=== PATIENT | female | born 1935 | race Caucasian/White ===

== ENCOUNTER → 2016-09-09 | Outpatient (CLI) | payer OTHER ==
[~2016-09-09] MED LIST: AML5T PO; ASPI-498 OR; ASPITAB34 OR; ATOR40TA52 PO; CALC600T4 PO; CHOL10006 OR; CHOL20007 OR; ENAL-3 PO; ENAL20TA70 PO; FOLI1TAB51 PO; HYDR25TA4 PO; METH2.5T3 OR; OMEG120017 PO; POTA-167 OR; PRED5PAK2 PO; [UNRECOGNIZED DRUG - CODE] PO
[2016-09-09 11:31] LABS: Basophils # (auto) 0 uL; Basophils % (auto) 0.7 % (0.0-2.0); Eosinophils # (auto) 0.2 uL; Eosinophils % (auto) 3.3 % (0.0-7.0); Hematocrit 44.3 % (36.0-46.0); Hemoglobin 14.4 g/dL (12.2-16.2); Lymphocytes # (auto) 1.7 uL; Lymphocytes % (auto) 28.1 % (10.0-50.0); Mean Corpuscular Hemoglobin 32.4 pg (28.0-32.0); Mean Corpuscular Hgb Conc. 32.5 g/dL (32.0-36.0); Mean Corpuscular Volume 99.8 fL (80.0-100.0); Mean Platelet Volume 9.3 fL (7.4-10.4); Monocytes # (auto) 0.3 uL; Monocytes % (auto) 5.8 % (0.0-12.0); Neutrophils # (auto) 3.7 uL; Neutrophils % (auto) 62.1 % (37.0-80.0); Platelet Count (auto) 304 10^3/uL (140-450); Red Cell Distribution Width 15.1 % (11.6-16.0); White Blood Cell 5.9 10^3/uL (4.4-10.8)
[2016-09-09 11:44] LABS: Albumin 3.9 g/dL (3.4-5.0); BUN/Creatinine Ratio 22.3; Calcium 9.9 mg/dL (8.5-10.1); Potassium 3.4 mmol/L (3.5-5.1); Total Protein 7.7 g/dL (6.4-8.2); Uric Acid 6.2 mg/dL (2.6-6.0)
== END | disposition home or self-care (01) ==
LOC: LAB 10:30
PROVIDERS: ATTEND Internal Medicine
DX: M06.9 Rheumatoid arthritis, unspecified (principal); I10 Essential (primary) hypertension; J12.9 Viral pneumonia, unspecified
CPT/HCPCS: 36415; 80053; 80061; 83970; 84550; 85025; 85652; 86141

== ENCOUNTER → 2016-10-08 | Outpatient (CLI) | payer OTHER | END | disposition home or self-care (01) | LOC: Rad HDHVI 09:27 | PROVIDERS: ATTEND Internal Medicine Cardiovascular Disease | DX: C18.9 Malignant neoplasm of colon, unspecified (principal); I70.212 Atherosclerosis of native arteries of extremities with intermittent claudication, left leg; I74.3 Embolism and thrombosis of arteries of the lower extremities; Z98.890 Other specified postprocedural states; I65.29 Occlusion and stenosis of unspecified carotid artery | CPT/HCPCS: 93926 ==

== ENCOUNTER → 2016-11-10 | Outpatient (CLI) | payer OTHER ==
[2016-11-10 13:27] LABS: Basophils # (auto) 0 uL; Eosinophils # (auto) 0 uL; Eosinophils % (auto) 0.4 % (0.0-7.0); Hematocrit 40.4 % (36.0-46.0); Hemoglobin 13.6 g/dL (12.2-16.2); Lymphocytes # (auto) 0.7 uL; Lymphocytes % (auto) 6.6 % (10.0-50.0); Mean Corpuscular Hemoglobin 33.5 pg (28.0-32.0); Mean Corpuscular Hgb Conc. 33.7 g/dL (32.0-36.0); Mean Corpuscular Volume 99.3 fL (80.0-100.0); Mean Platelet Volume 7.9 fL (7.4-10.4); Monocytes # (auto) 0.4 uL; Monocytes % (auto) 3.6 % (0.0-12.0); Neutrophils # (auto) 9.6 uL; Neutrophils % (auto) 89.4 % (37.0-80.0); Platelet Count (auto) 367 10^3/uL (140-450); White Blood Cell 10.8 10^3/uL (4.4-10.8)
[2016-11-10 13:50] LABS: Albumin 3.6 g/dL (3.4-5.0); BUN/Creatinine Ratio 21.3; Bilirubin, Total 0.7 mg/dL (0.2-1.0); Calcium 10.1 mg/dL (8.5-10.1); Total Protein 6.9 g/dL (6.4-8.2)
== END | disposition home or self-care (01) ==
LOC: LAB 13:03
DX: M06.9 Rheumatoid arthritis, unspecified (principal); I10 Essential (primary) hypertension; M25.859 Other specified joint disorders, unspecified hip; D64.9 Anemia, unspecified; Z79.899 Other long term (current) drug therapy
CPT/HCPCS: 36415; 80053; 85025; 85652; 86141

== ENCOUNTER → 2017-09-21 | Outpatient (CLI) | payer OTHER ==
[~2017-09-21] MED LIST changes: +ASPI81TA27 PO; +CHOL1000 PO; +CLON0.1T PO; +CLOP75TA28 PO; +FOLI1CAP7 PO; +GABA100C9 PO; +METH2.5T3 PO; +POTA20TA53 PO; +PRE5T PO
[2017-09-22 09:46] LABS: Basophils # (auto) 0 uL; Basophils % (auto) 0.6 % (0.0-2.0); Eosinophils # (auto) 0.1 uL; Eosinophils % (auto) 1.4 % (0.0-7.0); Hematocrit 42.5 % (36.0-46.0); Hemoglobin 14.3 g/dL (12.2-16.2); Lymphocytes # (auto) 1.5 uL; Lymphocytes % (auto) 30.5 % (10.0-50.0); Mean Corpuscular Hemoglobin 33.5 pg (28.0-32.0); Mean Corpuscular Hgb Conc. 33.6 g/dL (32.0-36.0); Mean Corpuscular Volume 99.6 fL (80.0-100.0); Monocytes # (auto) 0.3 uL; Neutrophils # (auto) 2.9 uL; Neutrophils % (auto) 60.5 % (37.0-80.0); Platelet Count (auto) 315 10^3/uL (140-450); Red Blood Cells 4.26 10^6/uL (4.0-5.20); Red Cell Distribution Width 14.7 % (11.8-14.3); White Blood Cell 4.8 10^3/uL (4.4-10.8)
[2017-09-22 10:13] LABS: Albumin 3.8 g/dL (3.4-5.0); BUN/Creatinine Ratio 18.4; Bilirubin, Total 1.3 mg/dL (0.2-1.0); Calcium 9.7 mg/dL (8.5-10.1); Potassium 3.3 mmol/L (3.5-5.1); Total Protein 7.4 g/dL (6.4-8.2); Uric Acid 5.7 mg/dL (2.6-6.0)
== END | disposition home or self-care (01) ==
LOC: LAB 11:52
PROVIDERS: ATTEND Internal Medicine
DX: J44.9 Chronic obstructive pulmonary disease, unspecified (principal); I73.9 Peripheral vascular disease, unspecified; I10 Essential (primary) hypertension
CPT/HCPCS: 36415; 80053; 80061; 82043; 83880; 83970; 84439; 84443; 84550; 85025; 85379; 85652

== ENCOUNTER 2017-09-24 08:36 | Day surgery (SDC) | payer OTHER ==
[~2017-09-24] VITALS: Ht 162.6 cm; Wt 59.0 kg
[~2017-09-24 08:36] MED LIST changes: -AML5T PO; -ASPI-498 OR; -CHOL10006 OR; -CHOL20007 OR; -CLON0.1T PO; -ENAL-3 PO; -FOLI1TAB51 PO; -GABA100C9 PO; -METH2.5T3 OR; -OMEG120017 PO; -POTA-167 OR; -PRED5PAK2 PO; -[UNRECOGNIZED DRUG - CODE] PO
[2017-09-24] MEDS ORDERED: IOHEXOL 350 MG/ML 100ML IJ ONE (09:50)
[2017-09-24] MEDS ORDERED: LIDOCAINE 2%HCL (LOCAL ANESTH.) INJ 20ML MDV ONE (09:50)
[2017-09-24] MEDS ORDERED: ANGIOMAX 250 MG VIAL IV ONE (09:58)
[2017-09-24] MEDS ORDERED: fentaNYL CITRATE 100 MCG/2 ML VL ONE (09:58)
[2017-09-24] MEDS ORDERED: MIDAZOLAM HCL 1MG/1ML-2 ML VIAL ONE (09:59)
[2017-09-24] MEDS ORDERED: SODIUM CHL 0.9% 0 ML ONE (09:59)
[2017-09-24] MEDS ORDERED: NITROGLYCERIN 0.4MG/DOSE SPRAY 4.9GM ONE (10:13)
[2017-09-24] MEDS ORDERED: cloNIDine HCL 0.1 MG TAB ONE (10:13)
[2017-09-24] MEDS ORDERED: cloNIDine 0.2 mg/24hr 7DAY PATCH TD ONE (11:00)
[2017-11-03] MEDS ORDERED: CLON0.1T PO (12:05)
[2017-11-03] MEDS ORDERED: GABA100C9 PO (12:05)
[2017-11-03] MEDS ORDERED: OMEG120017 PO (12:05)
== END 2017-09-24 12:45 | disposition home or self-care (01) ==
LOC: CATH 08:36
PROVIDERS: ATTEND Internal Medicine Cardiovascular Disease
DX: I25.10 Atherosclerotic heart disease of native coronary artery without angina pectoris (principal); J44.9 Chronic obstructive pulmonary disease, unspecified; I73.9 Peripheral vascular disease, unspecified; Z87.891 Personal history of nicotine dependence; I10 Essential (primary) hypertension; E78.5 Hyperlipidemia, unspecified
CPT/HCPCS: 36246; 36252; 75716; C1760; C1769; C1894; J1644; J2250; J3010; J7030; Q9967; 99152

== ENCOUNTER → 2017-11-03 | Outpatient (CLI) | payer OTHER ==
[~2017-11-03] MED LIST changes: +CLON0.1T PO; +GABA100C9 PO; +OMEG120017 PO
[2017-11-03 10:41] LABS: Basophils # (auto) 0 uL; Basophils % (auto) 0.3 % (0.0-2.0); Eosinophils # (auto) 0.1 uL; Eosinophils % (auto) 0.7 % (0.0-7.0); Hematocrit 41.2 % (36.0-46.0); Hemoglobin 13.9 g/dL (12.2-16.2); Lymphocytes # (auto) 1.6 uL; Lymphocytes % (auto) 17.4 % (10.0-50.0); Mean Corpuscular Hemoglobin 33.8 pg (28.0-32.0); Mean Corpuscular Hgb Conc. 33.6 g/dL (32.0-36.0); Mean Corpuscular Volume 100.5 fL (80.0-100.0); Monocytes # (auto) 0.5 uL; Monocytes % (auto) 5.8 % (0.0-12.0); Neutrophils # (auto) 6.7 uL; Neutrophils % (auto) 75.8 % (37.0-80.0); Nucleated Red Blood Cells % 0.1 %; Platelet Count (auto) 297 10^3/uL (140-450); Red Cell Distribution Width 14.5 % (11.8-14.3); White Blood Cell 8.9 10^3/uL (4.4-10.8)
[2017-11-03 11:01] LABS: INR 0.94 (0.9-1.15); Partial Thromboplastin Time 23.9 sec (22.64-33.71); Prothrombin Time 10.2 sec (9.37-12.3)
[2017-11-03 11:17] LABS: Albumin 3.7 g/dL (3.4-5.0); BUN/Creatinine Ratio 21.1; Bilirubin, Total 1.3 mg/dL (0.2-1.0); CRP High Sensitivity 1.92 mg/dL (< 0.3); Calcium 9.7 mg/dL (8.5-10.1); Potassium 3.6 mmol/L (3.5-5.1); Total Protein 7.5 g/dL (6.4-8.2)
== END | disposition home or self-care (01) ==
LOC: LAB 10:15
PROVIDERS: ATTEND Internal Medicine
DX: Z01.812 Encounter for preprocedural laboratory examination (principal); M06.9 Rheumatoid arthritis, unspecified; R79.89 Other specified abnormal findings of blood chemistry
CPT/HCPCS: 36415; 80053; 85025; 85610; 85730; 86141

== ENCOUNTER 2017-11-05 07:40 | Inpatient (IN) | payer OTHER ==
[2017-09-24 09:24] LABS: INR 0.92 (0.9-1.15)
[~2017-11-05] VITALS: Ht 162.6 cm; Wt 62.2 kg
[2017-11-05] MEDS ORDERED: LIDOCAINE 2%HCL (LOCAL ANESTH.) INJ 20ML MDV ONE (08:17)
[2017-11-05] MEDS ORDERED: IOHEXOL 350 MG/ML 100ML IJ ONE (08:17)
[2017-11-05] MEDS ORDERED: fentaNYL CITRATE 100 MCG/2 ML VL ONE (09:06)
[2017-11-05] MEDS ORDERED: ANGIOMAX 250 MG VIAL IV ONE (09:06)
[2017-11-05] MEDS ORDERED: MIDAZOLAM HCL 1MG/1ML-2 ML VIAL ONE (09:07)
[2017-11-05] MEDS ORDERED: SODIUM CHL 0.9% 50 ML ONE (09:07)
[2017-11-05] MEDS ORDERED: CLOPIDOGREL 300 MG TAB ONE (10:15)
[2017-11-05] MEDS ORDERED: METHOTREXATE 2.5 MG TAB PO SCH (10:30)
[2017-11-05] MEDS ORDERED: cloNIDine HCL 0.1 MG TAB PO SCH (10:30)
[2017-11-05] MEDS ORDERED: ENALAPRIL MALEATE 10 MG TAB PO ONE (11:00)
[2017-11-05] MEDS ORDERED: FOLIC ACID 1 MG TAB PO ONE (11:00)
[2017-11-05] MEDS ORDERED: HCTZ 25 MG TAB PO ONE (11:00)
[2017-11-05] MEDS ORDERED: CLOPIDOGREL BISULFATE 75 MG TAB PO ONE (11:00)
[2017-11-05] MEDS ORDERED: CHOLECALCIFEROL (VITD3) 1,000 UNIT TAB PO ONE (11:00)
[2017-11-05] MEDS ORDERED: GABAPENTIN 100 MG CAP PO ONE (11:00)
[2017-11-05] MEDS ORDERED: POTASSIUM CHL 20 Meq TABLET PO ONE (11:00)
[2017-11-05 15:20] VITALS: BP 125/59
[2017-11-05 21:52] VITALS: BP 120/58
[2017-11-05] MEDS ORDERED: ATORVASTATIN 20 MG TAB PO SCH (22:00)
[2017-11-06 05:24] VITALS: BP 142/69
[2017-11-06 09:00] VITALS: BP 138/78
[2017-11-06] MEDS ORDERED: POTASSIUM CHL 20 Meq TABLET PO SCH (10:00)
[2017-11-06] MEDS ORDERED: GABAPENTIN 100 MG CAP PO SCH (10:00)
[2017-11-06] MEDS ORDERED: CLOPIDOGREL BISULFATE 75 MG TAB PO SCH (10:00)
[2017-11-06] MEDS ORDERED: ENALAPRIL MALEATE 10 MG TAB PO SCH (10:00)
[2017-11-06] MEDS ORDERED: CHOLECALCIFEROL (VITD3) 1,000 UNIT TAB PO SCH (10:00)
[2017-11-06] MEDS ORDERED: ASPirin-EC 81 mg tab PO SCH (10:00)
[2017-11-06] MEDS ORDERED: predniSONE 5 MG TAB PO SCH (10:00)
[2017-11-06] MEDS ORDERED: HCTZ 25 MG TAB PO SCH (10:00)
[2017-11-06] MEDS ORDERED: FOLIC ACID 1 MG TAB PO SCH (10:00)
== END 2017-11-06 12:30 | disposition home or self-care (01) | DRG 253 ==
LOC: CATH 07:40 → EAST 07:41
PROVIDERS: ADMIT Internal Medicine Cardiovascular Disease; ATTEND Internal Medicine Cardiovascular Disease
PROC: 047K3Z1 Dilation of Right Femoral Artery using Drug-Coated Balloon, Percutaneous Approach (ICD-10-PCS; principal; 2017-11-05)
DX: I70.201 Unspecified atherosclerosis of native arteries of extremities, right leg (principal); D68.69 Other thrombophilia; E78.5 Hyperlipidemia, unspecified; I10 Essential (primary) hypertension; Z98.62 Peripheral vascular angioplasty status; Z82.49 Family history of ischemic heart disease and other diseases of the circulatory system
CPT/HCPCS: 36415; 85610; 99152; J2250

== ENCOUNTER → 2018-01-29 | Outpatient (CLI) | payer OTHER ==
[2018-01-29 11:16] LABS: Basophils # (auto) 0.1 uL; Basophils % (auto) 1.2 % (0.0-2.0); Eosinophils # (auto) 0.2 uL; Eosinophils % (auto) 3.2 % (0.0-7.0); Hematocrit 38.9 % (36.0-46.0); Hemoglobin 13.2 g/dL (12.2-16.2); Lymphocytes # (auto) 0.9 uL; Lymphocytes % (auto) 11.8 % (10.0-50.0); Mean Corpuscular Hemoglobin 32.9 pg (28.0-32.0); Mean Corpuscular Hgb Conc. 33.8 g/dL (32.0-36.0); Mean Corpuscular Volume 97.4 fL (80.0-100.0); Monocytes # (auto) 0.8 uL; Monocytes % (auto) 10.8 % (0.0-12.0); Neutrophils # (auto) 5.4 uL; Nucleated Red Blood Cells % 0.1 %; Platelet Count (auto) 304 10^3/uL (140-450); Red Blood Cells 3.99 10^6/uL (4.0-5.20); Red Cell Distribution Width 14.3 % (11.8-14.3); White Blood Cell 7.5 10^3/uL (4.4-10.8)
[2018-01-29 11:33] LABS: Albumin 3.4 g/dL (3.4-5.0); Bilirubin, Total 0.7 mg/dL (0.2-1.0); Calcium 9.6 mg/dL (8.5-10.1); Potassium 3.7 mmol/L (3.5-5.1)
== END | disposition home or self-care (01) ==
LOC: LAB 10:47
PROVIDERS: ATTEND Internal Medicine
DX: I10 Essential (primary) hypertension (principal); M06.9 Rheumatoid arthritis, unspecified; E78.5 Hyperlipidemia, unspecified; J44.9 Chronic obstructive pulmonary disease, unspecified; Z87.891 Personal history of nicotine dependence
CPT/HCPCS: 36415; 80053; 85025; 85652

== ENCOUNTER → 2018-04-23 | Outpatient (CLI) | payer OTHER ==
[2018-04-23 14:44] LABS: Basophils # (auto) 0 uL; Basophils % (auto) 0.5 % (0.0-2.0); Eosinophils # (auto) 0.1 uL; Eosinophils % (auto) 1.6 % (0.0-7.0); Hematocrit 39.8 % (36.0-46.0); Hemoglobin 13.7 g/dL (12.2-16.2); Lymphocytes # (auto) 1.2 uL; Mean Corpuscular Hemoglobin 33.8 pg (28.0-32.0); Mean Corpuscular Hgb Conc. 34.5 g/dL (32.0-36.0); Mean Corpuscular Volume 97.7 fL (80.0-100.0); Monocytes # (auto) 0.5 uL; Monocytes % (auto) 6.5 % (0.0-12.0); Neutrophils # (auto) 6.2 uL; Neutrophils % (auto) 76.4 % (37.0-80.0); Platelet Count (auto) 315 10^3/uL (140-450); Red Blood Cells 4.07 10^6/uL (4.0-5.20); Red Cell Distribution Width 15.6 % (11.8-14.3); White Blood Cell 8.2 10^3/uL (4.4-10.8)
[2018-04-23 15:35] LABS: Albumin 3.7 g/dL (3.4-5.0); BUN/Creatinine Ratio 16.3; Bilirubin, Total 0.7 mg/dL (0.2-1.0); CRP High Sensitivity 0.28 mg/dL (< 0.3); Calcium 9.4 mg/dL (8.5-10.1); Potassium 3.6 mmol/L (3.5-5.1); Total Protein 7.1 g/dL (6.4-8.2)
[2018-04-23 18:42] LABS: Carcinoembryonic Antigen 0.62 ng/mL (<5.0 OR =); Free T4 (Free Thyroxine) 1.37 ng/dL (0.89-1.76)
== END | disposition home or self-care (01) ==
LOC: LAB 14:21
PROVIDERS: ATTEND Internal Medicine
DX: I10 Essential (primary) hypertension (principal); M06.9 Rheumatoid arthritis, unspecified; R53.83 Other fatigue
CPT/HCPCS: 36415; 80053; 82378; 82607; 84439; 84443; 85025; 86141

== ENCOUNTER 2018-06-25 09:40 | Day surgery (SDC) | payer OTHER ==
[2018-06-22 11:45] LABS: Basophils # (auto) 0 uL; Basophils % (auto) 0.5 % (0.0-2.0); Eosinophils # (auto) 0.1 uL; Eosinophils % (auto) 1.3 % (0.0-7.0); Hematocrit 39.8 % (36.0-46.0); Hemoglobin 13.7 g/dL (12.2-16.2); Lymphocytes # (auto) 1.3 uL; Mean Corpuscular Hemoglobin 33.2 pg (28.0-32.0); Mean Corpuscular Hgb Conc. 34.3 g/dL (32.0-36.0); Mean Corpuscular Volume 96.7 fL (80.0-100.0); Monocytes # (auto) 0.6 uL; Monocytes % (auto) 8.6 % (0.0-12.0); Neutrophils # (auto) 4.9 uL; Neutrophils % (auto) 70.6 % (37.0-80.0); Platelet Count (auto) 329 10^3/uL (140-450); Red Blood Cells 4.11 10^6/uL (4.0-5.20); Red Cell Distribution Width 13.9 % (11.8-14.3)
[2018-06-22 12:32] LABS: INR 0.93 (0.9-1.15); Partial Thromboplastin Time 26.3 sec (23.78-33.04)
[~2018-06-25] VITALS: Ht 162.6 cm; Wt 53.1 kg
[~2018-06-25 09:40] MED LIST changes: -ASPITAB34 OR; +LIDOCAINE VISCOUS 2% 15ML UD ONE; +PEN400T PO; +SODIUM CHLORIDE LOCK 10 ML ONE
[2018-06-25] MEDS: fentaNYL CITRATE 100 MCG/2 ML VL ONE ×3 (10:59→11:14)
[2018-06-25] MEDS: MIDAZOLAM HCL 5 MG/ML-1ML VIAL ONE ×4 (10:59→11:20)
[2018-06-25] MEDS ORDERED: LABETALOL HCL 5 MG/ML 4ML SYRINGE IV ONE (11:28)
[2018-06-25 12:21] VITALS: BP 145/58
[2018-06-25] MEDS ORDERED: diphenhdrAMINE HCL 50 MG/1 ML VL IV ONE (15:30)
== END 2018-06-25 12:52 | disposition home or self-care (01) ==
LOC: SUR 09:40
PROVIDERS: ATTEND Internal Medicine Gastroenterology
DX: K63.89 Other specified diseases of intestine (principal); K29.50 Unspecified chronic gastritis without bleeding; K25.9 Gastric ulcer, unspecified as acute or chronic, without hemorrhage or perforation; J44.9 Chronic obstructive pulmonary disease, unspecified; I12.9 Hypertensive chronic kidney disease with stage 1 through stage 4 chronic kidney disease, or unspecified chronic kidney disease; N18.3 Chronic kidney disease, stage 3 (moderate); E78.5 Hyperlipidemia, unspecified; M06.9 Rheumatoid arthritis, unspecified; M19.90 Unspecified osteoarthritis, unspecified site; Z85.038 Personal history of other malignant neoplasm of large intestine; Z90.710 Acquired absence of both cervix and uterus; Z87.891 Personal history of nicotine dependence; Z80.0 Family history of malignant neoplasm of digestive organs; Z80.3 Family history of malignant neoplasm of breast; Z80.8 Family history of malignant neoplasm of other organs or systems; Z82.49 Family history of ischemic heart disease and other diseases of the circulatory system; Z79.899 Other long term (current) drug therapy; Z90.49 Acquired absence of other specified parts of digestive tract; Z98.890 Other specified postprocedural states; Z79.1 Long term (current) use of non-steroidal anti-inflammatories (NSAID); Z98.62 Peripheral vascular angioplasty status; Z79.82 Long term (current) use of aspirin
CPT/HCPCS: 36415; 43239; 45380; 85025; 85610; 85730; 88305; 88342; 99152; 99153; A6257; J1200; J2250; J3010; J3490; J7030

== ENCOUNTER → 2018-07-08 | Outpatient (CLI) | payer OTHER, MEDICARE ==
[~2018-07-08] MED LIST changes: -LIDOCAINE VISCOUS 2% 15ML UD ONE; -SODIUM CHLORIDE LOCK 10 ML ONE
[2018-07-08 14:02] LABS: Basophils # (auto) 0 uL; Basophils % (auto) 0.6 % (0.0-2.0); Eosinophils # (auto) 0.1 uL; Eosinophils % (auto) 1.2 % (0.0-7.0); Hematocrit 41.5 % (36.0-46.0); Hemoglobin 13.7 g/dL (12.2-16.2); Lymphocytes # (auto) 1.5 uL; Lymphocytes % (auto) 20.2 % (10.0-50.0); Mean Corpuscular Hemoglobin 32.2 pg (28.0-32.0); Mean Corpuscular Hgb Conc. 33.1 g/dL (32.0-36.0); Mean Corpuscular Volume 97.4 fL (80.0-100.0); Monocytes # (auto) 0.4 uL; Monocytes % (auto) 5.7 % (0.0-12.0); Neutrophils # (auto) 5.2 uL; Neutrophils % (auto) 72.3 % (37.0-80.0); Nucleated Red Blood Cells % 0.1 %; Platelet Count (auto) 343 10^3/uL (140-450); Red Blood Cells 4.26 10^6/uL (4.0-5.20); Red Cell Distribution Width 14.3 % (11.8-14.3); White Blood Cell 7.2 10^3/uL (4.4-10.8)
[2018-07-08 14:26] LABS: Albumin 3.7 g/dL (3.4-5.0); BUN/Creatinine Ratio 13.8; Bilirubin, Total 0.6 mg/dL (0.2-1.0); CRP High Sensitivity 0.84 mg/dL (< 0.3); Potassium 3.4 mmol/L (3.5-5.1); Total Protein 7.6 g/dL (6.4-8.2)
[2018-07-08 14:33] LABS: Hepatitis B Surface Antibody Negative
[2018-07-08 14:40] LABS: Urine Bacteria FEW /hpf (None Seen); Urine Blood Negative /uL (Negative); Urine Specific Gravity 1.018 (1.001-1.035); Urine WBC 144 /hpf (0 - 5)
[2018-07-08 15:00] LABS: Protein, Urine 14.4 mg/dL (0.0-11.9)
[2018-07-08 15:11] LABS: Hepatitis A Total Antibody Negative
[2018-07-08 15:58] LABS: Hepatitis B Core Total AB Negative; Hepatitis B Surface Antigen Negative (Negative); Hepatitis C Antibody Negative (Negative)
== END | disposition home or self-care (01) ==
LOC: LAB 13:06
PROVIDERS: ATTEND Internal Medicine
DX: Z11.59 Encounter for screening for other viral diseases (principal); I10 Essential (primary) hypertension; D64.9 Anemia, unspecified; M06.9 Rheumatoid arthritis, unspecified; A15.0 Tuberculosis of lung; Z72.89 Other problems related to lifestyle; Z79.899 Other long term (current) drug therapy
CPT/HCPCS: 36415; 80053; 81001; 82570; 84156; 85025; 85652; 86141; 86200; 86431; 86704; 86706; 86708; 86803; 87340

== ENCOUNTER → 2018-08-05 | Outpatient (CLI) | payer OTHER, MEDICARE | END | disposition home or self-care (01) | LOC: LAB 14:45 | PROVIDERS: ATTEND Internal Medicine | DX: M05.79 Rheumatoid arthritis with rheumatoid factor of multiple sites without organ or systems involvement (principal); R82.79 Other abnormal findings on microbiological examination of urine | CPT/HCPCS: 87086; 87088; 87186 ==

== ENCOUNTER → 2018-11-26 | Outpatient (CLI) | payer OTHER, MEDICARE ==
[2018-11-26 10:32] LABS: Basophils # (auto) 0 uL; Basophils % (auto) 0.7 % (0.0-2.0); Eosinophils # (auto) 0.2 uL; Eosinophils % (auto) 3.4 % (0.0-7.0); Hematocrit 39.4 % (36.0-46.0); Hemoglobin 13.4 g/dL (12.2-16.2); Lymphocytes # (auto) 1.2 uL; Lymphocytes % (auto) 24.1 % (10.0-50.0); Mean Corpuscular Hemoglobin 33.6 pg (28.0-32.0); Mean Corpuscular Hgb Conc. 33.9 g/dL (32.0-36.0); Mean Corpuscular Volume 99.2 fL (80.0-100.0); Monocytes # (auto) 0.5 uL; Monocytes % (auto) 9.7 % (0.0-12.0); Neutrophils % (auto) 62.1 % (37.0-80.0); Platelet Count (auto) 263 10^3/uL (140-450); Red Blood Cells 3.97 10^6/uL (4.0-5.20); Red Cell Distribution Width 15.8 % (11.8-14.3); White Blood Cell 4.8 10^3/uL (4.4-10.8)
[2018-11-26 11:29] LABS: Alanine Aminotransferase 20 U/L (13-56); Aspartate Aminotransferase 28 U/L (15-37); GFR African American 77 mL/min; GFR Non-African American 64 mL/min; Total Protein 7.5 g/dL (6.4-8.2)
[2018-11-26 11:34] LABS: Alkaline Phosphatase 67 U/L (45-117); Anion Gap 6 (5-15); Blood Urea Nitrogen 18 mg/dL (7-18); Carbon Dioxide 28 mmol/L (21-32); Chloride 103 mmol/L (98-107); Glucose 88 mg/dL (74-106); Sodium 137 mmol/L (136-145)
[2018-11-26 11:35] LABS: Albumin 3.4 g/dL (3.4-5.0); Bilirubin, Total 0.7 mg/dL (0.2-1.0); Cholesterol 177 mg/dL (< 200); HDL Cholesterol 63 mg/dL (40-59); LDL Cholesterol 99 mg/dL (< 100); Triglycerides 115 mg/dL (< 150)
[2018-11-26 13:21] LABS: Urine Bacteria NONE SEEN /hpf (None Seen); Urine Blood Negative /uL (Negative); Urine Specific Gravity 1.019 (1.001-1.035); Urine WBC 4 /hpf (0 - 5)
== END | disposition home or self-care (01) ==
LOC: LAB 10:11
PROVIDERS: ATTEND Internal Medicine
DX: M06.9 Rheumatoid arthritis, unspecified (principal); I10 Essential (primary) hypertension
CPT/HCPCS: 36415; 80053; 80061; 81001; 82043; 84439; 84443; 85025; 85652

== ENCOUNTER → 2019-02-22 | Outpatient (CLI) | payer MEDICARE, OTHER | END | disposition home or self-care (01) | LOC: XY 08:49 | PROVIDERS: ATTEND Internal Medicine Gastroenterology | DX: R63.4 Abnormal weight loss (principal) | CPT/HCPCS: 78264; A9541 ==

== ENCOUNTER → 2019-03-09 | Outpatient (CLI) | payer OTHER ==
[2019-03-09 10:33] LABS: Basophils # (auto) 0.1 uL; Basophils % (auto) 0.9 % (0.0-2.0); Eosinophils # (auto) 0.1 uL; Eosinophils % (auto) 1.8 % (0.0-7.0); Hematocrit 39.7 % (36.0-46.0); Hemoglobin 13.3 g/dL (12.2-16.2); Lymphocytes # (auto) 0.9 uL; Lymphocytes % (auto) 14.2 % (10.0-50.0); Mean Corpuscular Hemoglobin 32.9 pg (28.0-32.0); Mean Corpuscular Hgb Conc. 33.5 g/dL (32.0-36.0); Mean Corpuscular Volume 98.1 fL (80.0-100.0); Monocytes # (auto) 0.5 uL; Monocytes % (auto) 8.1 % (0.0-12.0); Neutrophils # (auto) 4.8 uL; Nucleated Red Blood Cells % 0.1 %; Platelet Count (auto) 310 10^3/uL (140-450); Red Blood Cells 4.04 10^6/uL (4.0-5.20); Red Cell Distribution Width 15.6 % (11.8-14.3); White Blood Cell 6.4 10^3/uL (4.4-10.8)
[2019-03-09 10:44] LABS: Albumin 3.7 g/dL (3.4-5.0); Calcium 10.3 mg/dL (8.5-10.1)
[2019-03-09 10:53] LABS: BUN/Creatinine Ratio 24.4; Bilirubin, Total 0.8 mg/dL (0.2-1.0); CRP High Sensitivity 1.16 mg/dL (< 0.3); Total Protein 7.3 g/dL (6.4-8.2)
[2019-03-09 11:52] LABS: Potassium 3.8 mmol/L (3.5-5.1)
== END | disposition home or self-care (01) ==
LOC: LAB 10:09
PROVIDERS: ATTEND Internal Medicine
DX: M06.9 Rheumatoid arthritis, unspecified (principal); I10 Essential (primary) hypertension; J44.9 Chronic obstructive pulmonary disease, unspecified
CPT/HCPCS: 36415; 80053; 85025; 85652; 86141

== ENCOUNTER → 2019-05-25 | Outpatient (CLI) | payer OTHER, MEDICARE ==
[~2019-05-25] MED LIST changes: +ASPI-404 PO; -ASPI81TA27 PO; +ENAL20TA PO; -ENAL20TA70 PO; +POTA-220 PO; -POTA20TA53 PO
[2019-05-25 10:51] LABS: Basophils # (auto) 0.1 uL; Basophils % (auto) 0.7 % (0.0-2.0); Eosinophils # (auto) 0.1 uL; Eosinophils % (auto) 1.7 % (0.0-7.0); Hematocrit 38.8 % (36.0-46.0); Hemoglobin 13.3 g/dL (12.2-16.2); Lymphocytes % (auto) 12.9 % (10.0-50.0); Mean Corpuscular Hemoglobin 33.3 pg (28.0-32.0); Mean Corpuscular Hgb Conc. 34.3 g/dL (32.0-36.0); Mean Corpuscular Volume 97.2 fL (80.0-100.0); Monocytes # (auto) 0.6 uL; Monocytes % (auto) 7.6 % (0.0-12.0); Neutrophils # (auto) 5.8 uL; Neutrophils % (auto) 77.1 % (37.0-80.0); Platelet Count (auto) 331 10^3/uL (140-450); Red Blood Cells 3.99 10^6/uL (4.0-5.20); Red Cell Distribution Width 14.9 % (11.8-14.3); White Blood Cell 7.6 10^3/uL (4.4-10.8)
[2019-05-25 11:28] LABS: Potassium 4.2 mmol/L (3.5-5.1)
[2019-05-25 11:36] LABS: Albumin 3.6 g/dL (3.4-5.0); BUN/Creatinine Ratio 26.5; Bilirubin, Total 1.1 mg/dL (0.2-1.0); Calcium 9.9 mg/dL (8.5-10.1); Total Protein 7.6 g/dL (6.4-8.2)
== END | disposition home or self-care (01) ==
LOC: LAB 09:57
PROVIDERS: ATTEND Internal Medicine
DX: C18.9 Malignant neoplasm of colon, unspecified (principal); I10 Essential (primary) hypertension; J44.9 Chronic obstructive pulmonary disease, unspecified
CPT/HCPCS: 36415; 80053; 82378; 83615; 85025

== ENCOUNTER → 2019-08-09 | Outpatient (CLI) | payer OTHER, MEDICARE ==
[2019-08-09 08:42] LABS: Basophils # (auto) 0 uL; Basophils % (auto) 1.3 % (0.0-2.0); Eosinophils # (auto) 0.1 uL; Hematocrit 40.7 % (36.0-46.0); Hemoglobin 13.7 g/dL (12.2-16.2); Lymphocytes # (auto) 0.8 uL; Lymphocytes % (auto) 22.3 % (10.0-50.0); Mean Corpuscular Hemoglobin 32.9 pg (28.0-32.0); Mean Corpuscular Hgb Conc. 33.6 g/dL (32.0-36.0); Monocytes # (auto) 0.4 uL; Monocytes % (auto) 10.1 % (0.0-12.0); Neutrophils # (auto) 2.3 uL; Neutrophils % (auto) 63.3 % (37.0-80.0); Nucleated Red Blood Cells % 0.1 %; Platelet Count (auto) 310 10^3/uL (140-450); Red Blood Cells 4.15 10^6/uL (4.0-5.20); Red Cell Distribution Width 14.8 % (11.8-14.3); White Blood Cell 3.6 10^3/uL (4.4-10.8)
[2019-08-09 09:00] LABS: Potassium 3.5 mmol/L (3.5-5.1)
[2019-08-09 09:01] LABS: Albumin 3.6 g/dL (3.4-5.0); Calcium 9.5 mg/dL (8.5-10.1)
[2019-08-09 09:04] LABS: BUN/Creatinine Ratio 25.3; Bilirubin, Total 0.9 mg/dL (0.2-1.0); Total Protein 7.6 g/dL (6.4-8.2)
== END | disposition home or self-care (01) ==
LOC: LAB 08:08
PROVIDERS: ATTEND Internal Medicine
DX: C18.9 Malignant neoplasm of colon, unspecified (principal)
CPT/HCPCS: 36415; 80053; 82378; 85025

== ENCOUNTER 2019-08-10 09:28 | Emergency (ER) | payer MEDICARE, OTHER ==
[~2019-08-10] VITALS: Ht 162.6 cm; Wt 46.7 kg
[2019-08-10 10:16] LABS: Basophils # (auto) 0 uL; Basophils % (auto) 0.8 % (0.0-2.0); Eosinophils # (auto) 0.1 uL; Eosinophils % (auto) 1.6 % (0.0-7.0); Lymphocytes # (auto) 1.1 uL; Lymphocytes % (auto) 24.1 % (10.0-50.0); Mean Corpuscular Hemoglobin 33.2 pg (28.0-32.0); Mean Corpuscular Hgb Conc. 34.1 g/dL (32.0-36.0); Mean Corpuscular Volume 97.2 fL (80.0-100.0); Monocytes # (auto) 0.4 uL; Monocytes % (auto) 9.5 % (0.0-12.0); Neutrophils # (auto) 2.8 uL; Platelet Count (auto) 349 10^3/uL (140-450); Red Blood Cells 4.22 10^6/uL (4.0-5.20); Red Cell Distribution Width 14.7 % (11.8-14.3); White Blood Cell 4.4 10^3/uL (4.4-10.8)
[2019-08-10 11:18] LABS: Albumin 3.8 g/dL (3.4-5.0); Calcium 9.4 mg/dL (8.5-10.1); Potassium 3.4 mmol/L (3.5-5.1)
[2019-08-10 11:25] LABS: Bilirubin, Total 0.7 mg/dL (0.2-1.0)
[2019-08-10 12:20] VITALS: BP 127/48
[2019-08-10] MEDS ORDERED: POTASSIUM EFFERVESENT TAB 25 MEQ PO ONE (13:15)
== END 2019-08-10 15:01 | disposition home or self-care (01) ==
LOC: ER 09:28
DX: R07.89 Other chest pain (principal); E87.6 Hypokalemia; M06.9 Rheumatoid arthritis, unspecified; J44.9 Chronic obstructive pulmonary disease, unspecified; E78.5 Hyperlipidemia, unspecified; I10 Essential (primary) hypertension; Z85.038 Personal history of other malignant neoplasm of large intestine; Z90.710 Acquired absence of both cervix and uterus
CPT/HCPCS: 36415; 71046; 80053; 83735; 84443; 84484; 85025

== ENCOUNTER → 2019-10-14 | Outpatient (CLI) | payer OTHER | END | disposition home or self-care (01) | LOC: LAB 11:18 | PROVIDERS: ATTEND Internal Medicine | DX: I10 Essential (primary) hypertension (principal); E04.1 Nontoxic single thyroid nodule; M06.9 Rheumatoid arthritis, unspecified; R91.1 Solitary pulmonary nodule; Z85.038 Personal history of other malignant neoplasm of large intestine | CPT/HCPCS: 36415; 82378; 83036; 84443; 85652 ==

== ENCOUNTER 2020-01-26 16:06 | Emergency (ER) | payer MEDICARE, OTHER ==
[~2020-01-26] VITALS: Ht 162.6 cm; Wt 47.6 kg
[2020-01-26] MEDS ORDERED: cloNIDine HCL 0.1 MG TAB PO ONE (16:30)
[2020-01-26 17:04] VITALS: BP 192/74
== END 2020-01-26 17:09 | disposition home or self-care (01) ==
LOC: ER 16:06
DX: I16.0 Hypertensive urgency (principal); I10 Essential (primary) hypertension; E78.5 Hyperlipidemia, unspecified; J44.9 Chronic obstructive pulmonary disease, unspecified; Z79.82 Long term (current) use of aspirin; Z79.899 Other long term (current) drug therapy; Z90.49 Acquired absence of other specified parts of digestive tract; Z90.710 Acquired absence of both cervix and uterus
CPT/HCPCS: 93005; 99283; J7030

== ENCOUNTER → 2020-01-28 | Emergency (ER) | payer OTHER ==
[~2020-01-28] VITALS: Ht 162.6 cm; Wt 47.6 kg
[~2020-01-28] MED LIST changes: +SODIUM CHLORIDE 0.9% 1,000 ML IV ONE; +cloNIDine HCL 0.1 MG TAB PO ONE
[2020-01-28 11:04] LABS: Basophils # (auto) 0 10 ^3/uL (0-0.2); Basophils % (auto) 0.6 % (0.0-2.0); Eosinophils # (auto) 0.1 10 ^3/uL (0-0.8); Eosinophils % (auto) 1.8 % (0.0-7.0); Hematocrit 45.3 % (36.0-46.0); Lymphocytes # (auto) 0.9 10 ^3/uL (0.4-5.4); Lymphocytes % (auto) 14.6 % (10.0-50.0); Mean Corpuscular Hemoglobin 32.7 pg (28.0-32.0); Mean Corpuscular Hgb Conc. 33.1 g/dL (32.0-36.0); Monocytes # (auto) 0.5 10 ^3/uL (0-1.3); Monocytes % (auto) 8.8 % (0.0-12.0); Neutrophils # (auto) 4.4 10 ^3/uL (1.6-8.6); Neutrophils % (auto) 74.2 % (37.0-80.0); Platelet Count (auto) 279 10^3/uL (140-450); Red Blood Cells 4.57 10^6/uL (4.0-5.20); Red Cell Distribution Width 15.1 % (11.8-14.3); White Blood Cell 5.9 10^3/uL (4.4-10.8)
[2020-01-28 11:25] LABS: Alanine Aminotransferase 25 U/L (13-56); Albumin 3.8 g/dL (3.4-5.0); Anion Gap 7 (5-15); Aspartate Aminotransferase 27 U/L (15-37); BUN/Creatinine Ratio 22.9; Blood Urea Nitrogen 16 mg/dL (7-18); Calcium 9.6 mg/dL (8.5-10.1); Carbon Dioxide 28 mmol/L (21-32); Chloride 103 mmol/L (98-107); GFR African American 103 mL/min; GFR Non-African American 85 mL/min; Glucose 92 mg/dL (74-106); Sodium 138 mmol/L (136-145)
[2020-01-28 11:35] LABS: Alkaline Phosphatase 79 U/L (45-117); Total Protein 8.2 g/dL (6.4-8.2)
[2020-01-28 13:43] LABS: Urine Bacteria NONE SEEN /hpf (None Seen); Urine Blood Negative /uL (Negative); Urine Specific Gravity 1.006 (1.001-1.035); Urine WBC <1 /hpf (0 - 5)
[2020-01-28 14:54] VITALS: BP 150/54
== END | disposition home or self-care (01) ==
LOC: ER 10:23
DX: I10 Essential (primary) hypertension (principal); J44.9 Chronic obstructive pulmonary disease, unspecified; E78.5 Hyperlipidemia, unspecified; M19.90 Unspecified osteoarthritis, unspecified site
CPT/HCPCS: 36415; 71046; 80053; 81001; 83735; 84443; 84484; 85025; 93005

== ENCOUNTER → 2020-02-02 | Outpatient (CLI) | payer OTHER ==
[~2020-02-02] MED LIST changes: +ALBUTEROL SULF 2.5 MG/0.5ML(0.5%) NEB SOLN ONE; +METH2.5T PO; -METH2.5T3 PO; -SODIUM CHLORIDE 0.9% 1,000 ML IV ONE; -cloNIDine HCL 0.1 MG TAB PO ONE
== END | disposition home or self-care (01) ==
LOC: RT 08:19
PROVIDERS: ATTEND Internal Medicine Pulmonary Disease
DX: J44.9 Chronic obstructive pulmonary disease, unspecified (principal)
CPT/HCPCS: 94060; 94727; 94729

== ENCOUNTER → 2020-02-13 | Outpatient (CLI) | payer OTHER ==
[~2020-02-13] MED LIST changes: -ALBUTEROL SULF 2.5 MG/0.5ML(0.5%) NEB SOLN ONE; -ASPI-404 PO; +ASPI-543 PO; -CALC600T4 PO; +CALC600T6 PO; -ENAL20TA PO; +ENAL20TA8 PO
== END | disposition home or self-care (01) ==
LOC: Rad HDHVI 07:50
PROVIDERS: ATTEND Internal Medicine Cardiovascular Disease
DX: J44.9 Chronic obstructive pulmonary disease, unspecified (principal); R06.02 Shortness of breath; I79.8 Other disorders of arteries, arterioles and capillaries in diseases classified elsewhere
CPT/HCPCS: 93306

== ENCOUNTER → 2020-02-14 | Outpatient (CLI) | payer OTHER ==
[~2020-02-14] VITALS: Ht 162.6 cm; Wt 46.3 kg
[~2020-02-14] MED LIST changes: +ADENOSINE 39 MG in GIVE UN-DILUTED 0 ML IV ONE; +ADENOSINE 90 MG/30 ML INJ IV ONE; +cloNIDine HCL 0.1 MG TAB ONE
== END | disposition home or self-care (01) ==
LOC: Rad HDHVI 07:54
PROVIDERS: ATTEND Internal Medicine Cardiovascular Disease
DX: I25.10 Atherosclerotic heart disease of native coronary artery without angina pectoris (principal); I10 Essential (primary) hypertension; E78.00 Pure hypercholesterolemia, unspecified; Z82.49 Family history of ischemic heart disease and other diseases of the circulatory system
CPT/HCPCS: 78452; 93005; 96374; 96375; A9500; J0153

== ENCOUNTER → 2020-03-21 | Outpatient (CLI) | payer OTHER ==
[~2020-03-21] MED LIST changes: -ADENOSINE 39 MG in GIVE UN-DILUTED 0 ML IV ONE; -ADENOSINE 90 MG/30 ML INJ IV ONE; +ASPI-404 PO; -ASPI-543 PO; +CALC600T4 PO; -CALC600T6 PO; +ENAL20TA PO; -ENAL20TA8 PO; -cloNIDine HCL 0.1 MG TAB ONE
[2020-03-21 11:20] LABS: Basophils # (auto) 0.1 10 ^3/uL (0-0.2); Basophils % (auto) 1.2 % (0.0-2.0); Eosinophils # (auto) 0.1 10 ^3/uL (0-0.8); Eosinophils % (auto) 2.2 % (0.0-7.0); Hematocrit 38.1 % (36.0-46.0); Hemoglobin 12.7 g/dL (12.2-16.2); Lymphocytes # (auto) 0.9 10 ^3/uL (0.4-5.4); Lymphocytes % (auto) 17.3 % (10.0-50.0); Mean Corpuscular Hgb Conc. 33.4 g/dL (32.0-36.0); Mean Corpuscular Volume 98.7 fL (80.0-100.0); Monocytes # (auto) 0.6 10 ^3/uL (0-1.3); Monocytes % (auto) 11.5 % (0.0-12.0); Neutrophils # (auto) 3.6 10 ^3/uL (1.6-8.6); Neutrophils % (auto) 67.8 % (37.0-80.0); Nucleated Red Blood Cells % 0.1 %; Platelet Count (auto) 260 10^3/uL (140-450); Red Blood Cells 3.86 10^6/uL (4.0-5.20); Red Cell Distribution Width 15.4 % (11.8-14.3); White Blood Cell 5.3 10^3/uL (4.4-10.8)
[2020-03-21 11:42] LABS: Albumin 3.5 g/dL (3.4-5.0); Calcium 9.7 mg/dL (8.5-10.1); Potassium 3.7 mmol/L (3.5-5.1)
[2020-03-21 11:46] LABS: BUN/Creatinine Ratio 20.5; Bilirubin, Direct 0.2 mg/dL (0-0.2); Bilirubin, Total 0.9 mg/dL (0.2-1.0); Total Protein 7.3 g/dL (6.4-8.2)
[2020-03-21 11:51] LABS: Carcinoembryonic Antigen 0.93 ng/mL (<5.0 OR =)
[2020-03-21 11:53] LABS: Folate (Folic Acid) > 24.00 ng/mL (5.38-24)
== END | disposition home or self-care (01) ==
LOC: LAB 10:55
PROVIDERS: ATTEND Internal Medicine
DX: J44.9 Chronic obstructive pulmonary disease, unspecified (principal); M04.9 Autoinflammatory syndrome, unspecified; R73.03 Prediabetes
CPT/HCPCS: 36415; 80053; 80076; 82043; 82378; 82746; 83615; 85025

== ENCOUNTER → 2020-05-21 | Outpatient (CLI) | payer OTHER ==
[~2020-05-21] MED LIST changes: -ASPI-404 PO; +ASPI-543 PO; -CALC600T4 PO; +CALC600T6 PO; -ENAL20TA PO; +ENAL20TA8 PO
[2020-05-21 08:53] LABS: BUN/Creatinine Ratio 22.1; Calcium 9.6 mg/dL (8.5-10.1); Potassium 3.8 mmol/L (3.5-5.1)
== END | disposition home or self-care (01) ==
LOC: LAB 07:48
PROVIDERS: ATTEND Internal Medicine
DX: E11.9 Type 2 diabetes mellitus without complications (principal)
CPT/HCPCS: 36415; 80048

== ENCOUNTER → 2020-11-09 | Outpatient (CLI) | payer OTHER ==
[2020-11-09 13:35] LABS: Basophils # (auto) 0.1 10 ^3/uL (0-0.2); Eosinophils # (auto) 0.2 10 ^3/uL (0-0.8); Eosinophils % (auto) 2.4 % (0.0-7.0); Hematocrit 37.5 % (36.0-46.0); Hemoglobin 12.8 g/dL (12.2-16.2); Lymphocytes # (auto) 1.4 10 ^3/uL (0.4-5.4); Lymphocytes % (auto) 21.8 % (10.0-50.0); Mean Corpuscular Hemoglobin 33.2 pg (28.0-32.0); Mean Corpuscular Hgb Conc. 34.3 g/dL (32.0-36.0); Monocytes # (auto) 0.6 10 ^3/uL (0-1.3); Monocytes % (auto) 9.6 % (0.0-12.0); Neutrophils # (auto) 4.3 10 ^3/uL (1.6-8.6); Neutrophils % (auto) 65.2 % (37.0-80.0); Nucleated Red Blood Cells % 0.1 %; Platelet Count (auto) 302 10^3/uL (140-450); Red Blood Cells 3.86 10^6/uL (4.0-5.20); Red Cell Distribution Width 15.9 % (11.8-14.3); White Blood Cell 6.6 10^3/uL (4.4-10.8)
[2020-11-09 15:14] LABS: Albumin 3.4 g/dL (3.4-5.0); Calcium 9.5 mg/dL (8.5-10.1); Potassium 4.2 mmol/L (3.5-5.1)
[2020-11-09 15:23] LABS: BUN/Creatinine Ratio 18.5; Bilirubin, Total 0.4 mg/dL (0.2-1.0); CRP High Sensitivity 1.16 mg/dL (< 0.3); Total Protein 7.5 g/dL (6.4-8.2)
== END | disposition home or self-care (01) ==
LOC: LAB 13:22
PROVIDERS: ATTEND Internal Medicine Rheumatology
DX: M05.79 Rheumatoid arthritis with rheumatoid factor of multiple sites without organ or systems involvement (principal)
CPT/HCPCS: 36415; 80053; 85025; 85652; 86141; 86200; 86431

== ENCOUNTER → 2020-11-28 | Outpatient (CLI) | payer OTHER ==
[2020-11-28 12:08] LABS: Basophils # (auto) 0.1 10 ^3/uL (0-0.2); Basophils % (auto) 0.9 % (0.0-2.0); Eosinophils # (auto) 0.2 10 ^3/uL (0-0.8); Eosinophils % (auto) 2.4 % (0.0-7.0); Hematocrit 37.9 % (36.0-46.0); Hemoglobin 12.9 g/dL (12.2-16.2); Lymphocytes # (auto) 1.5 10 ^3/uL (0.4-5.4); Lymphocytes % (auto) 20.5 % (10.0-50.0); Mean Corpuscular Hemoglobin 33.3 pg (28.0-32.0); Monocytes # (auto) 0.6 10 ^3/uL (0-1.3); Monocytes % (auto) 7.9 % (0.0-12.0); Neutrophils % (auto) 68.3 % (37.0-80.0); Platelet Count (auto) 306 10^3/uL (140-450); Red Blood Cells 3.86 10^6/uL (4.0-5.20); Red Cell Distribution Width 15.6 % (11.8-14.3); White Blood Cell 7.3 10^3/uL (4.4-10.8)
[2020-11-28 13:33] LABS: Albumin 3.5 g/dL (3.4-5.0); Calcium 9.4 mg/dL (8.5-10.1); Potassium 4.2 mmol/L (3.5-5.1)
[2020-11-28 13:36] LABS: BUN/Creatinine Ratio 29.9; Bilirubin, Total 0.9 mg/dL (0.2-1.0); Total Protein 7.4 g/dL (6.4-8.2)
== END | disposition home or self-care (01) ==
LOC: LAB 11:55
PROVIDERS: ATTEND Internal Medicine
DX: C18.9 Malignant neoplasm of colon, unspecified (principal)
CPT/HCPCS: 36415; 80053; 82378; 83615; 85025

== ENCOUNTER → 2020-12-11 | Outpatient (CLI) | payer OTHER | END | disposition home or self-care (01) | LOC: LAB 16:01 | PROVIDERS: ATTEND Family Medicine | DX: L57.0 Actinic keratosis (principal) ==

== ENCOUNTER → 2021-01-09 | Day surgery (SDC) | payer OTHER ==
[2021-01-04 13:05] LABS: Basophils # (auto) 0.1 10 ^3/uL (0-0.2); Eosinophils # (auto) 0.2 10 ^3/uL (0-0.8); Eosinophils % (auto) 3.8 % (0.0-7.0); Hemoglobin 13.3 g/dL (12.2-16.2); Lymphocytes # (auto) 1.2 10 ^3/uL (0.4-5.4); Lymphocytes % (auto) 22.3 % (10.0-50.0); Mean Corpuscular Hemoglobin 33.8 pg (28.0-32.0); Mean Corpuscular Volume 99.5 fL (80.0-100.0); Monocytes # (auto) 0.7 10 ^3/uL (0-1.3); Monocytes % (auto) 11.8 % (0.0-12.0); Neutrophils # (auto) 3.4 10 ^3/uL (1.6-8.6); Neutrophils % (auto) 61.1 % (37.0-80.0); Platelet Count (auto) 263 10^3/uL (140-450); Red Blood Cells 3.92 10^6/uL (4.0-5.20); Red Cell Distribution Width 14.8 % (11.8-14.3); White Blood Cell 5.5 10^3/uL (4.4-10.8)
[2021-01-04 13:24] LABS: INR 0.99 (0.9-1.15); Partial Thromboplastin Time 26.3 sec (23.0-31.2)
[~2021-01-09] VITALS: Ht 162.6 cm; Wt 51.3 kg
[~2021-01-09] MED LIST changes: +B-COCAP34 PO; -CHOL1000 PO; +CHOL1TAB30 PO; +DOCU100T15 PO; -ENAL20TA8 PO; +METO25TA93 PO; +MULTCAP45 PO; -PEN400T PO; -PRE5T PO; +VALS40TA2 PO; +diphenhdrAMINE HCL 50 MG/1 ML VL ONE
[2021-01-09] MEDS: MIDAZOLAM HCL 5 MG/ML-1ML VIAL ONE ×4 (14:19→14:32)
[2021-01-09] MEDS: fentaNYL CITRATE 100 MCG/2 ML VL ONE ×3 (14:19→14:25)
[2021-01-09 15:30] VITALS: BP 132/41
== END | disposition home or self-care (01) ==
LOC: GI 12:27
PROVIDERS: ATTEND Internal Medicine Gastroenterology
DX: R19.4 Change in bowel habit (principal); K63.89 Other specified diseases of intestine; J44.9 Chronic obstructive pulmonary disease, unspecified; Z87.891 Personal history of nicotine dependence; Z20.822 Contact with and (suspected) exposure to COVID-19; Z98.890 Other specified postprocedural states; Z79.899 Other long term (current) drug therapy; Z90.710 Acquired absence of both cervix and uterus
CPT/HCPCS: 36415; 45380; 45385; 85025; 85610; 85730; 88305; J1200; J2250; J3010; J7030; U0003; 99152

== ENCOUNTER → 2021-04-10 | Outpatient (CLI) | payer OTHER ==
[~2021-04-10] MED LIST changes: -diphenhdrAMINE HCL 50 MG/1 ML VL ONE
== END | disposition home or self-care (01) ==
LOC: XY 10:06
PROVIDERS: ATTEND Internal Medicine
DX: I70.203 Unspecified atherosclerosis of native arteries of extremities, bilateral legs (principal)
CPT/HCPCS: 93925

== ENCOUNTER → 2021-05-01 | Outpatient (CLI) | payer OTHER ==
[2021-05-01 13:23] LABS: Cholesterol 157 mg/dL (< 200); HDL Cholesterol 64 mg/dL (40-59); LDL Cholesterol 78 mg/dL (< 100); Triglycerides 80 mg/dL (< 150)
[2021-05-01 14:52] LABS: Urine Bacteria FEW /hpf (None Seen); Urine Blood Negative /uL (Negative); Urine Hyaline Cast FEW /lpf (0 - 2); Urine Mucus FEW (None Seen); Urine Specific Gravity 1.018 (1.001-1.035); Urine WBC 50 /hpf (0 - 5)
== END | disposition home or self-care (01) ==
LOC: LAB 11:53
PROVIDERS: ATTEND Internal Medicine
DX: R73.03 Prediabetes (principal); L73.9 Follicular disorder, unspecified
CPT/HCPCS: 36415; 80061; 81001; 82043; 83036

== ENCOUNTER 2021-05-13 17:52 | Emergency (ER) | payer OTHER ==
[~2021-05-13] VITALS: Ht 162.6 cm; Wt 52.2 kg
[2021-05-13 19:02] LABS: Basophils # (auto) 0 10 ^3/uL (0-0.2); Basophils % (auto) 0.5 % (0.0-2.0); Eosinophils # (auto) 0.1 10 ^3/uL (0-0.8); Eosinophils % (auto) 0.8 % (0.0-7.0); Hematocrit 37.8 % (36.0-46.0); Hemoglobin 12.8 g/dL (12.2-16.2); Lymphocytes % (auto) 14.6 % (10.0-50.0); Mean Corpuscular Hemoglobin 32.3 pg (28.0-32.0); Mean Corpuscular Hgb Conc. 33.9 g/dL (32.0-36.0); Mean Corpuscular Volume 95.2 fL (80.0-100.0); Monocytes # (auto) 0.5 10 ^3/uL (0-1.3); Monocytes % (auto) 6.4 % (0.0-12.0); Neutrophils # (auto) 5.5 10 ^3/uL (1.6-8.6); Neutrophils % (auto) 77.7 % (37.0-80.0); Red Blood Cells 3.97 10^6/uL (4.0-5.20); Red Cell Distribution Width 14.3 % (11.8-14.3); White Blood Cell 7.1 10^3/uL (4.4-10.8)
[2021-05-13 19:15] LABS: INR 1.08 (0.9-1.15)
[2021-05-13 20:09] LABS: Albumin 3.3 g/dL (3.4-5.0); Anion Gap 10 (5-15); BUN/Creatinine Ratio 18.8; Blood Urea Nitrogen 15 mg/dL (7-18); Calcium 9.3 mg/dL (8.5-10.1); Carbon Dioxide 24 mmol/L (21-32); Chloride 101 mmol/L (98-107); GFR African American 88 mL/min; GFR Non-African American 73 mL/min; Glucose 96 mg/dL (74-106); Lipase 131 U/L (73-393); Magnesium 2.1 mg/dL (1.6-2.6); Potassium 3.4 mmol/L (3.5-5.1); Sodium 135 mmol/L (136-145)
[2021-05-13 20:14] LABS: Alanine Aminotransferase 27 U/L (13-56); Alkaline Phosphatase 82 U/L (45-117); Aspartate Aminotransferase 29 U/L (15-37); Bilirubin, Total 0.8 mg/dL (0.2-1.0); Total Protein 7.5 g/dL (6.4-8.2)
[2021-05-13] MEDS ORDERED: ACETAMINOPHEN 500 MG TAB PO ONE (20:45)
[2021-05-13 22:54] VITALS: BP 128/87
== END 2021-05-13 22:56 | disposition home or self-care (01) ==
LOC: ER 17:52
DX: J18.9 Pneumonia, unspecified organism (principal); Z20.822 Contact with and (suspected) exposure to COVID-19
CPT/HCPCS: 36415; 71045; 80053; 83605; 83690; 83735; 83880; 84484; 85025; 85379; 85610; 87040; 87426; 93005

== ENCOUNTER 2021-05-14 10:31 | Observation (INO) | payer OTHER ==
[~2021-05-14] VITALS: Ht 162.6 cm; Wt 53.3 kg
[2021-05-14] MEDS ORDERED: levoFLOXacin 500MG 100 ML IV ONE (12:00)
[2021-05-14 12:22] LABS: Basophils # (auto) 0 10 ^3/uL (0-0.2); Basophils % (auto) 0.5 % (0.0-2.0); Eosinophils # (auto) 0 10 ^3/uL (0-0.8); Eosinophils % (auto) 0.2 % (0.0-7.0); Hematocrit 38.1 % (36.0-46.0); Hemoglobin 13.1 g/dL (12.2-16.2); Lymphocytes # (auto) 0.8 10 ^3/uL (0.4-5.4); Lymphocytes % (auto) 12.3 % (10.0-50.0); Mean Corpuscular Hemoglobin 32.9 pg (28.0-32.0); Mean Corpuscular Hgb Conc. 34.5 g/dL (32.0-36.0); Mean Corpuscular Volume 95.4 fL (80.0-100.0); Monocytes # (auto) 0.6 10 ^3/uL (0-1.3); Monocytes % (auto) 8.3 % (0.0-12.0); Neutrophils # (auto) 5.3 10 ^3/uL (1.6-8.6); Neutrophils % (auto) 78.7 % (37.0-80.0); Nucleated Red Blood Cells % 0.1 %; Red Blood Cells 3.99 10^6/uL (4.0-5.20); Red Cell Distribution Width 14.4 % (11.8-14.3); White Blood Cell 6.7 10^3/uL (4.4-10.8)
[2021-05-14] MEDS ORDERED: SODIUM CHLORIDE 0.9% 1,000 ML IV SCH (13:00)
[2021-05-14] MEDS ORDERED: NITROGLYCERIN 0.4 MG SL TAB SL PRN (13:00)
[2021-05-14] MEDS ORDERED: MORPHINE SULFATE INJECTION 2 MG/ML SYRG IV PRN ×2 (13:00)
[2021-05-14] MEDS ORDERED: HYDROcodone-ACET 5/325MG TAB PO PRN (13:00)
[2021-05-14] MEDS ORDERED: ACETAMINOPHEN 500 MG TAB PO PRN (13:00)
[2021-05-14 13:09] LABS: Albumin 3.5 g/dL (3.4-5.0); BUN/Creatinine Ratio 20.4; Calcium 9.9 mg/dL (8.5-10.1); Potassium 3.8 mmol/L (3.5-5.1)
[2021-05-14 13:11] LABS: Bilirubin, Total 1.1 mg/dL (0.2-1.0); Total Protein 7.7 g/dL (6.4-8.2)
[2021-05-14] MEDS ORDERED: IOHEXOL 350 MG/ML 100ML IJ ONE (19:49)
[2021-05-14 23:10] VITALS: BP 162/77
[2021-05-15] MEDS: ATORVASTATIN 20 MG TAB PO SCH ×2 (00:25→21:42)
[2021-05-15 05:00] VITALS: BP 154/68
[2021-05-15 05:50] LABS: Basophils # (auto) 0 10 ^3/uL (0-0.2); Basophils % (auto) 0.6 % (0.0-2.0); Eosinophils # (auto) 0.1 10 ^3/uL (0-0.8); Eosinophils % (auto) 0.9 % (0.0-7.0); Hematocrit 35.8 % (36.0-46.0); Hemoglobin 12.6 g/dL (12.2-16.2); Lymphocytes % (auto) 15.5 % (10.0-50.0); Mean Corpuscular Hemoglobin 33.7 pg (28.0-32.0); Mean Corpuscular Hgb Conc. 35.2 g/dL (32.0-36.0); Mean Corpuscular Volume 95.8 fL (80.0-100.0); Monocytes # (auto) 0.7 10 ^3/uL (0-1.3); Neutrophils # (auto) 4.8 10 ^3/uL (1.6-8.6); Red Blood Cells 3.74 10^6/uL (4.0-5.20); Red Cell Distribution Width 14.4 % (11.8-14.3); White Blood Cell 6.7 10^3/uL (4.4-10.8)
[2021-05-15] MEDS: ALBUTEROL SULF 2.5 MG/0.5ML(0.5%) NEB SOLN NEB SCH ×3 (06:19→12:06)
[2021-05-15] MEDS: IPRATROPIUM BROM 0.5 MG/2.5ML INH SOL NEB SCH ×3 (06:20→12:06)
[2021-05-15 06:21] LABS: BUN/Creatinine Ratio 29.8; Calcium 9.6 mg/dL (8.5-10.1); Potassium 3.1 mmol/L (3.5-5.1)
[2021-05-15 09:00] VITALS: BP 139/61
[2021-05-15] MEDS: GABAPENTIN 100 MG CAP PO SCH (09:32)
[2021-05-15] MEDS: cefTRIAXone 1GM/50ML D5W 50 ML IV SCH (09:32)
[2021-05-15] MEDS: CLOPIDOGREL BISULFATE 75 MG TAB PO SCH (09:33)
[2021-05-15] MEDS: ASPirin-EC 81 mg tab PO SCH (09:33)
[2021-05-15] MEDS: VALSARTAN 80 MG TAB PO SCH (09:33)
[2021-05-15] MEDS: Calcium Carbonate (Calcium) 600 MG TAB PO SCH (10:00)
[2021-05-15] MEDS ORDERED: POTASSIUM CHL 20 Meq TABLET PO ONE (10:15)
[2021-05-15] MEDS ORDERED: ACETYLCYSTEINE 10 %(100MG/ML) SOL 4ML ONE (11:50)
[2021-05-15] MEDS ORDERED: AZIT250T PO (11:59)
[2021-05-15] MEDS ORDERED: ALBUAER3 IN (11:59)
[2021-05-15] MEDS: AZITHROMYCIN 500MG/ 250ML 250 ML IV SCH (12:35)
[2021-05-15] MEDS: METOPROLOL SUCCINATE XL 50 MG TAB PO SCH (13:02)
[2021-05-15] MEDS: ACETYLCYSTEINE 10 %(100MG/ML) SOL 4ML NEB SCH ×2 (14:01→22:32)
[2021-05-15 14:12] LABS: Free T4 (Free Thyroxine) 1.5 ng/dL (0.89-1.76)
[2021-05-15 14:13] LABS: T3 Total 0.77 ng/mL (0.60-1.81)
[2021-05-15 22:00] VITALS: BP_SYST 110; BP_SYST 116; BP_DIAS 47; BP_DIAS 63
[2021-05-15] MEDS: ALBUTEROL SULF 2.5 MG/0.5ML(0.5%) NEB SOLN NEB PRN (22:31)
[2021-05-15] MEDS: IPRATROPIUM BROM 0.5 MG/2.5ML INH SOL NEB PRN (22:32)
[2021-05-16 05:00] VITALS: BP 147/64
[2021-05-16] MEDS: ALBUTEROL SULF 2.5 MG/0.5ML(0.5%) NEB SOLN NEB PRN (06:41)
[2021-05-16] MEDS: IPRATROPIUM BROM 0.5 MG/2.5ML INH SOL NEB PRN (06:41)
[2021-05-16] MEDS: cefTRIAXone 1GM/50ML D5W 50 ML IV SCH (09:00)
[2021-05-16] MEDS: ASPirin-EC 81 mg tab PO SCH (10:00)
[2021-05-16] MEDS: CLOPIDOGREL BISULFATE 75 MG TAB PO SCH (10:00)
[2021-05-16] MEDS: GABAPENTIN 100 MG CAP PO SCH (10:00)
[2021-05-16] MEDS: Calcium Carbonate (Calcium) 600 MG TAB PO SCH (10:00)
[2021-05-16] MEDS: AZITHROMYCIN 500MG/ 250ML 250 ML IV SCH (10:00)
[2021-05-16] MEDS: METOPROLOL SUCCINATE XL 50 MG TAB PO SCH (10:00)
[2021-05-16 11:35] VITALS: BP 164/64
[2021-05-16] MEDS: VALSARTAN 80 MG TAB PO SCH (11:39)
== END 2021-05-16 12:00 | disposition home or self-care (01) ==
LOC: ER 10:31 → OVERFLOW 12:49 → INTOOBSV 12:49 → WEST WING 23:03
PROVIDERS: ADMIT Nurse Practitioner Acute Care; ATTEND Internal Medicine
DX: J18.9 Pneumonia, unspecified organism (principal); Z20.822 Contact with and (suspected) exposure to COVID-19; J44.9 Chronic obstructive pulmonary disease, unspecified; I73.9 Peripheral vascular disease, unspecified; K27.9 Peptic ulcer, site unspecified, unspecified as acute or chronic, without hemorrhage or perforation; I10 Essential (primary) hypertension; E78.5 Hyperlipidemia, unspecified; R11.2 Nausea with vomiting, unspecified; M19.90 Unspecified osteoarthritis, unspecified site; E87.6 Hypokalemia; E78.00 Pure hypercholesterolemia, unspecified; D84.9 Immunodeficiency, unspecified; R53.1 Weakness; Z79.82 Long term (current) use of aspirin; Z90.49 Acquired absence of other specified parts of digestive tract; Z90.710 Acquired absence of both cervix and uterus; Z85.038 Personal history of other malignant neoplasm of large intestine; Z87.11 Personal history of peptic ulcer disease; Z79.899 Other long term (current) drug therapy
CPT/HCPCS: 36415; 71045; 71250; 71275; 76536; 80048; 80053; 84132; 84439; 84443; 84480; 85025; 87070; 87077; 87205; 87426; 93005; 94640; 96361; 96365; 96366; 96367; 96368; G0378; J0696

== ENCOUNTER → 2021-08-20 | Outpatient (CLI) | payer OTHER ==
[~2021-08-20] MED LIST changes: +ALBUAER3 IN; +AZIT250T PO
[2021-08-20 14:24] LABS: Basophils # (auto) 0.1 10 ^3/uL (0-0.2); Eosinophils # (auto) 0.1 10 ^3/uL (0-0.8); Eosinophils % (auto) 1.7 % (0.0-7.0); Hematocrit 40.2 % (36.0-46.0); Hemoglobin 13.2 g/dL (12.2-16.2); Lymphocytes # (auto) 1.8 10 ^3/uL (0.4-5.4); Lymphocytes % (auto) 27.5 % (10.0-50.0); Mean Corpuscular Hemoglobin 31.5 pg (28.0-32.0); Mean Corpuscular Hgb Conc. 32.8 g/dL (32.0-36.0); Mean Corpuscular Volume 96.3 fL (80.0-100.0); Monocytes # (auto) 0.6 10 ^3/uL (0-1.3); Monocytes % (auto) 9.2 % (0.0-12.0); Neutrophils % (auto) 60.6 % (37.0-80.0); Red Blood Cells 4.17 10^6/uL (4.0-5.20); Red Cell Distribution Width 14.4 % (11.8-14.3); White Blood Cell 6.6 10^3/uL (4.4-10.8)
[2021-08-20 15:00] LABS: Albumin 3.9 g/dL (3.4-5.0); Calcium 9.9 mg/dL (8.5-10.1); Potassium 3.7 mmol/L (3.5-5.1)
[2021-08-20 15:08] LABS: Bilirubin, Total 1.3 mg/dL (0.2-1.0); Total Protein 7.2 g/dL (6.4-8.2)
[2021-08-20 15:37] LABS: CRP High Sensitivity 1.37 mg/dL (< 0.3)
== END | disposition home or self-care (01) ==
LOC: LAB 13:59
PROVIDERS: ATTEND Internal Medicine
DX: M05.79 Rheumatoid arthritis with rheumatoid factor of multiple sites without organ or systems involvement (principal)
CPT/HCPCS: 36415; 80053; 82378; 83615; 85025; 85652; 86141

== ENCOUNTER → 2021-10-08 | Outpatient (CLI) | payer OTHER ==
[~2021-10-08] VITALS: Ht 162.6 cm; Wt 52.2 kg
[~2021-10-08] MED LIST changes: +ADENOSINE 44 MG in GIVE UN-DILUTED 0 ML IV STA
[2021-10-08 09:57] VITALS: BP 186/75
== END | disposition home or self-care (01) ==
LOC: XY 08:38
PROVIDERS: ATTEND Internal Medicine
DX: I77.810 Thoracic aortic ectasia (principal); I70.1 Atherosclerosis of renal artery; I73.9 Peripheral vascular disease, unspecified; R94.31 Abnormal electrocardiogram [ECG] [EKG]; R09.89 Other specified symptoms and signs involving the circulatory and respiratory systems
CPT/HCPCS: 78452; 93017; A9500; J0153

== ENCOUNTER → 2021-10-15 | Outpatient (CLI) | payer OTHER ==
[~2021-10-15] MED LIST changes: -ADENOSINE 44 MG in GIVE UN-DILUTED 0 ML IV STA
== END | disposition home or self-care (01) ==
LOC: XY 08:43
PROVIDERS: ATTEND Internal Medicine
DX: I65.21 Occlusion and stenosis of right carotid artery (principal)
CPT/HCPCS: 93886

== ENCOUNTER → 2021-11-27 | Outpatient (CLI) | payer MEDICARE, OTHER ==
[2021-11-27 14:57] LABS: Albumin 3.3 g/dL (3.4-5.0); BUN/Creatinine Ratio 9.6; Calcium 9.3 mg/dL (8.5-10.1); Potassium 3.9 mmol/L (3.5-5.1)
[2021-11-27 14:59] LABS: Bilirubin, Total 0.8 mg/dL (0.2-1.0); Total Protein 6.6 g/dL (6.4-8.2)
== END | disposition home or self-care (01) ==
LOC: LAB 14:30
PROVIDERS: ATTEND Internal Medicine
DX: N18.30 Chronic kidney disease, stage 3 unspecified (principal)
CPT/HCPCS: 36415; 80053

== ENCOUNTER → 2021-12-04 | Outpatient (CLI) | payer OTHER ==
[2021-12-04 09:50] LABS: Calcium 9.2 mg/dL (8.5-10.1); Potassium 3.9 mmol/L (3.5-5.1)
[2021-12-04 09:51] LABS: BUN/Creatinine Ratio 14.8
== END | disposition home or self-care (01) ==
LOC: LAB 08:26
PROVIDERS: ATTEND Internal Medicine
DX: Z01.812 Encounter for preprocedural laboratory examination (principal); I10 Essential (primary) hypertension
CPT/HCPCS: 36415; 80048

== ENCOUNTER → 2021-12-05 | Outpatient (CLI) | payer MEDICARE, OTHER ==
[~2021-12-05] MED LIST changes: +IOHEXOL 350 MG/ML 100ML IJ ONE
== END | disposition home or self-care (01) ==
LOC: CT 08:45
PROVIDERS: ATTEND Internal Medicine
DX: I65.23 Occlusion and stenosis of bilateral carotid arteries (principal); J44.9 Chronic obstructive pulmonary disease, unspecified; E07.89 Other specified disorders of thyroid
CPT/HCPCS: 70498; Q9967

== ENCOUNTER 2022-02-19 08:00 | Inpatient (IN) | payer OTHER ==
[2022-02-17 11:57] LABS: Basophils # (auto) 0 10 ^3/uL (0-0.2); Basophils % (auto) 0.7 % (0.0-2.0); Eosinophils # (auto) 0 10 ^3/uL (0-0.8); Eosinophils % (auto) 0.7 % (0.0-7.0); Hematocrit 36.6 % (36.0-46.0); Hemoglobin 12.7 g/dL (12.2-16.2); Lymphocytes # (auto) 1.3 10 ^3/uL (0.4-5.4); Lymphocytes % (auto) 19.9 % (10.0-50.0); Mean Corpuscular Hemoglobin 33.7 pg (28.0-32.0); Mean Corpuscular Hgb Conc. 34.7 g/dL (32.0-36.0); Mean Corpuscular Volume 97.4 fL (80.0-100.0); Monocytes # (auto) 0.6 10 ^3/uL (0-1.3); Monocytes % (auto) 9.2 % (0.0-12.0); Neutrophils # (auto) 4.6 10 ^3/uL (1.6-8.6); Neutrophils % (auto) 69.5 % (37.0-80.0); Nucleated Red Blood Cells % 0.1 %; Red Blood Cells 3.76 10^6/uL (4.0-5.20); Red Cell Distribution Width 14.5 % (11.8-14.3); White Blood Cell 6.7 10^3/uL (4.4-10.8)
[2022-02-17 12:13] LABS: INR 1.02 (0.9-1.15)
[2022-02-17 13:15] LABS: Albumin 3.7 g/dL (3.4-5.0); Calcium 8.9 mg/dL (8.5-10.1); Potassium 3.5 mmol/L (3.5-5.1)
[2022-02-17 13:20] LABS: Bilirubin, Total 1.1 mg/dL (0.2-1.0); Total Protein 7.5 g/dL (6.4-8.2)
[~2022-02-19] VITALS: Ht 162.6 cm; Wt 56.7 kg
[2022-02-19] VITALS (12 sets, daily range): BP systolic 101–160; BP diastolic 34–60
[~2022-02-19 08:00] MED LIST changes: -AZIT250T PO; +B CO1TAB4 PO; -B-COCAP34 PO; +CALC-425 PO; -CALC600T6 PO; -GABA100C9 PO; +GABA300C10 PO; +HYDR200T36 PO; -HYDR25TA4 PO; -IOHEXOL 350 MG/ML 100ML IJ ONE; +OMEG100078 PO; -OMEG120017 PO; +VALS160T82 PO; -VALS40TA2 PO
[2022-02-19] MEDS ORDERED: fentaNYL CITRATE 100 MCG/2 ML VL ONE (09:09)
[2022-02-19] MEDS ORDERED: MIDAZOLAM HCL 2MG/2ML 2ml VIAL (1mg/ml) ONE (09:09)
[2022-02-19] MEDS ORDERED: ANGIOMAX 250 MG VIAL IV ONE (09:09)
[2022-02-19] MEDS ORDERED: SODIUM CHL 0.9% 50 ML ONE (09:09)
[2022-02-19] MEDS ORDERED: LIDOCAINE 2%HCL (LOCAL ANESTH.) INJ 10ml MDV ONE (09:10)
[2022-02-19] MEDS ORDERED: IODIXANOL 320MG/ML 100ML BTL IV ONE ×2 (09:17→10:10)
[2022-02-19] MEDS ORDERED: hydrALAZINE HCL 20 MG/ML VL ONE (09:34)
[2022-02-19] MEDS ORDERED: VERAPAMIL 2.5MG/ML INJ 2ML VIAL IV ONE (10:13)
[2022-02-19] MEDS ORDERED: CLOPIDOGREL BISULFATE 75 MG TAB ONE (11:04)
[2022-02-19] MEDS ORDERED: ASPirin 81 mg TAB ONE (11:04)
[2022-02-19] MEDS ORDERED: traMADol HCL 50 MG TAB PO PRN (13:30)
[2022-02-19] MEDS ORDERED: MORPHINE SULFATE INJ 2 MG/ml SYRG IV PRN (13:30)
[2022-02-19] MEDS ORDERED: NITROGLYCERIN 0.4 MG SL TAB SL PRN (13:30)
[2022-02-19 19:06] LABS: Urine Bacteria NONE SEEN /hpf (None Seen); Urine Blood 2+ /uL (Negative); Urine WBC 5 /hpf (0 - 5)
[2022-02-19 19:17] LABS: Urine Specific Gravity > 1.050 (1.001-1.035)
[2022-02-19] MEDS: hydrOXYchloroQUINE SULFATE 200 MG TAB PO SCH (21:34)
[2022-02-19] MEDS: NITROFURANTOIN 100 mg CAP PO SCH (21:34)
[2022-02-19] MEDS: GABAPENTIN 300 MG CAP PO SCH (21:35)
[2022-02-19] MEDS ORDERED: ATORVASTATIN 20 MG TAB PO SCH (22:00)
[2022-02-20 05:00] VITALS: BP 150/52
[2022-02-20 05:33] LABS: Basophils # (auto) 0.1 10 ^3/uL (0-0.2); Basophils % (auto) 0.9 % (0.0-2.0); Eosinophils # (auto) 0 10 ^3/uL (0-0.8); Eosinophils % (auto) 0.2 % (0.0-7.0); Hematocrit 34.1 % (36.0-46.0); Lymphocytes # (auto) 0.7 10 ^3/uL (0.4-5.4); Lymphocytes % (auto) 8.8 % (10.0-50.0); Mean Corpuscular Hemoglobin 33.6 pg (28.0-32.0); Mean Corpuscular Hgb Conc. 35.2 g/dL (32.0-36.0); Mean Corpuscular Volume 95.5 fL (80.0-100.0); Monocytes # (auto) 0.7 10 ^3/uL (0-1.3); Neutrophils # (auto) 6.7 10 ^3/uL (1.6-8.6); Neutrophils % (auto) 81.1 % (37.0-80.0); Red Blood Cells 3.57 10^6/uL (4.0-5.20); Red Cell Distribution Width 14.7 % (11.8-14.3); White Blood Cell 8.3 10^3/uL (4.4-10.8)
[2022-02-20 05:50] LABS: BUN/Creatinine Ratio 17.9; Calcium 8.7 mg/dL (8.5-10.1); Potassium 3.7 mmol/L (3.5-5.1)
[2022-02-20 08:00] VITALS: BP 165/60
[2022-02-20 09:00] VITALS: BP 165/60
[2022-02-20] MEDS ORDERED: ASPirin 81 mg TAB PO SCH (10:00)
[2022-02-20] MEDS ORDERED: VALSARTAN 80 MG TAB PO SCH (10:00)
[2022-02-20] MEDS ORDERED: CLOPIDOGREL BISULFATE 75 MG TAB PO SCH (10:00)
[2022-02-20] MEDS: GABAPENTIN 300 MG CAP PO SCH (10:19)
[2022-02-20] MEDS: NITROFURANTOIN 100 mg CAP PO SCH (10:19)
[2022-02-20] MEDS: hydrOXYchloroQUINE SULFATE 200 MG TAB PO SCH (10:20)
[2022-02-20 12:40] VITALS: BP 142/61
[2022-02-20 13:00] VITALS: BP_SYST 110; BP_SYST 142; BP_DIAS 48; BP_DIAS 61
== END 2022-02-20 14:41 | disposition home or self-care (01) | DRG 271 ==
LOC: CATH 08:00 → TELE-CENTR 13:22
PROVIDERS: ADMIT Internal Medicine; ATTEND Internal Medicine
PROC: 047L3DZ Dilation of Left Femoral Artery with Intraluminal Device, Percutaneous Approach (ICD-10-PCS; principal; 2022-02-19)
PROC: 04CL3ZZ Extirpation of Matter from Left Femoral Artery, Percutaneous Approach (ICD-10-PCS; 2022-02-19)
DX: I73.9 Peripheral vascular disease, unspecified (principal); E87.1 Hypo-osmolality and hyponatremia; I10 Essential (primary) hypertension; E78.5 Hyperlipidemia, unspecified; J44.9 Chronic obstructive pulmonary disease, unspecified; M06.9 Rheumatoid arthritis, unspecified; G62.9 Polyneuropathy, unspecified; Z20.822 Contact with and (suspected) exposure to COVID-19; Z87.891 Personal history of nicotine dependence
CPT/HCPCS: 36415; 37227; 80048; 80053; 81001; 85025; 85610; 85730; 99152; C1724; C1769; G0378; J2001; J2250; Q9967

== ENCOUNTER → 2022-03-14 | Outpatient (CLI) | payer OTHER ==
[~2022-03-14] MED LIST changes: -DOCU100T15 PO
[2022-03-14 11:08] LABS: Basophils # (auto) 0.1 10 ^3/uL (0-0.2); Basophils % (auto) 0.9 % (0.0-2.0); Eosinophils # (auto) 0 10 ^3/uL (0-0.8); Eosinophils % (auto) 0.5 % (0.0-7.0); Hematocrit 37.6 % (36.0-46.0); Hemoglobin 12.4 g/dL (12.2-16.2); Lymphocytes # (auto) 1.2 10 ^3/uL (0.4-5.4); Lymphocytes % (auto) 21.8 % (10.0-50.0); Mean Corpuscular Hemoglobin 31.7 pg (28.0-32.0); Mean Corpuscular Hgb Conc. 32.8 g/dL (32.0-36.0); Mean Corpuscular Volume 96.7 fL (80.0-100.0); Monocytes # (auto) 0.5 10 ^3/uL (0-1.3); Monocytes % (auto) 8.4 % (0.0-12.0); Neutrophils # (auto) 3.9 10 ^3/uL (1.6-8.6); Neutrophils % (auto) 68.4 % (37.0-80.0); Red Blood Cells 3.89 10^6/uL (4.0-5.20); Red Cell Distribution Width 15.9 % (11.8-14.3); White Blood Cell 5.7 10^3/uL (4.4-10.8)
[2022-03-14 11:39] LABS: BUN/Creatinine Ratio 17.5; Calcium 10.1 mg/dL (8.5-10.1); Potassium 3.9 mmol/L (3.5-5.1)
== END | disposition home or self-care (01) ==
LOC: LAB 10:58
PROVIDERS: ATTEND Internal Medicine
DX: J44.9 Chronic obstructive pulmonary disease, unspecified (principal); E78.5 Hyperlipidemia, unspecified; I10 Essential (primary) hypertension
CPT/HCPCS: 36415; 80048; 85025

== ENCOUNTER → 2022-04-04 | Outpatient (CLI) | payer OTHER ==
[2022-04-04 13:30] LABS: Basophils # (auto) 0.1 10 ^3/uL (0-0.2); Basophils % (auto) 1.1 % (0.0-2.0); Eosinophils # (auto) 0.1 10 ^3/uL (0-0.8); Hematocrit 35.9 % (36.0-46.0); Hemoglobin 11.9 g/dL (12.2-16.2); Lymphocytes # (auto) 1.4 10 ^3/uL (0.4-5.4); Lymphocytes % (auto) 27.3 % (10.0-50.0); Mean Corpuscular Hemoglobin 31.9 pg (28.0-32.0); Mean Corpuscular Hgb Conc. 33.2 g/dL (32.0-36.0); Mean Corpuscular Volume 96.3 fL (80.0-100.0); Monocytes # (auto) 0.6 10 ^3/uL (0-1.3); Monocytes % (auto) 11.4 % (0.0-12.0); Neutrophils # (auto) 2.9 10 ^3/uL (1.6-8.6); Neutrophils % (auto) 58.2 % (37.0-80.0); Red Blood Cells 3.73 10^6/uL (4.0-5.20); Red Cell Distribution Width 15.5 % (11.8-14.3)
[2022-04-04 14:02] LABS: Albumin 3.3 g/dL (3.4-5.0); Calcium 9.3 mg/dL (8.5-10.1); Potassium 4.1 mmol/L (3.5-5.1)
[2022-04-04 14:05] LABS: BUN/Creatinine Ratio 15.4; Bilirubin, Total 0.5 mg/dL (0.2-1.0); CRP High Sensitivity 0.27 mg/dL (< 0.3); Total Protein 6.8 g/dL (6.4-8.2)
== END | disposition home or self-care (01) ==
LOC: LAB 13:05
PROVIDERS: ATTEND Internal Medicine Rheumatology
DX: M05.29 Rheumatoid vasculitis with rheumatoid arthritis of multiple sites (principal)
CPT/HCPCS: 36415; 80053; 85025; 85652; 86141

== ENCOUNTER → 2022-06-02 | Outpatient (CLI) | payer OTHER, MEDICARE | END | disposition home or self-care (01) | LOC: XY 09:18 | PROVIDERS: ATTEND Internal Medicine | DX: I65.23 Occlusion and stenosis of bilateral carotid arteries (principal) | CPT/HCPCS: 93886 ==

== ENCOUNTER → 2022-06-20 | Outpatient (CLI) | payer OTHER ==
[2022-06-20 10:44] LABS: Basophils # (auto) 0.1 10 ^3/uL (0-0.2); Basophils % (auto) 1.3 % (0.0-2.0); Eosinophils # (auto) 0.1 10 ^3/uL (0-0.8); Eosinophils % (auto) 1.6 % (0.0-7.0); Hematocrit 40.5 % (36.0-46.0); Hemoglobin 13.5 g/dL (12.2-16.2); Lymphocytes # (auto) 1.2 10 ^3/uL (0.4-5.4); Lymphocytes % (auto) 25.6 % (10.0-50.0); Mean Corpuscular Hemoglobin 31.5 pg (28.0-32.0); Mean Corpuscular Hgb Conc. 33.3 g/dL (32.0-36.0); Mean Corpuscular Volume 94.5 fL (80.0-100.0); Monocytes # (auto) 0.5 10 ^3/uL (0-1.3); Neutrophils # (auto) 2.8 10 ^3/uL (1.6-8.6); Neutrophils % (auto) 60.5 % (37.0-80.0); Red Blood Cells 4.28 10^6/uL (4.0-5.20); Red Cell Distribution Width 14.4 % (11.8-14.3); White Blood Cell 4.6 10^3/uL (4.4-10.8)
[2022-06-20 12:06] LABS: Folate (Folic Acid) > 24.00 ng/mL (5.38-24)
[2022-06-20 12:07] LABS: Albumin 3.3 g/dL (3.4-5.0); BUN/Creatinine Ratio 21.4; CRP High Sensitivity 0.72 mg/dL (< 0.3); Calcium 9.8 mg/dL (8.5-10.1); Total Protein 6.4 g/dL (6.4-8.2)
== END | disposition home or self-care (01) ==
LOC: LAB 10:27
PROVIDERS: ATTEND Internal Medicine
DX: M05.79 Rheumatoid arthritis with rheumatoid factor of multiple sites without organ or systems involvement (principal); D64.9 Anemia, unspecified; Z79.899 Other long term (current) drug therapy
CPT/HCPCS: 36415; 80053; 82607; 82746; 85025; 85652; 86141

== ENCOUNTER 2022-07-14 11:13 | Inpatient (IN) | payer MEDICARE, OTHER ==
[~2022-07-14] VITALS: Ht 160 cm; Wt 66.0 kg
[2022-07-14 12:15] LABS: Basophils # (auto) 0 10 ^3/uL (0-0.2); Basophils % (auto) 0.5 % (0.0-2.0); Eosinophils # (auto) 0 10 ^3/uL (0-0.8); Eosinophils % (auto) 0.5 % (0.0-7.0); Hematocrit 43.3 % (36.0-46.0); Hemoglobin 15.1 g/dL (12.2-16.2); Lymphocytes # (auto) 0.8 10 ^3/uL (0.4-5.4); Lymphocytes % (auto) 17.2 % (10.0-50.0); Mean Corpuscular Hemoglobin 32.8 pg (28.0-32.0); Mean Corpuscular Hgb Conc. 34.9 g/dL (32.0-36.0); Mean Corpuscular Volume 93.9 fL (80.0-100.0); Monocytes # (auto) 0.4 10 ^3/uL (0-1.3); Monocytes % (auto) 7.7 % (0.0-12.0); Neutrophils # (auto) 3.6 10 ^3/uL (1.6-8.6); Neutrophils % (auto) 74.1 % (37.0-80.0); Nucleated Red Blood Cells % 0.1 %; Red Blood Cells 4.61 10^6/uL (4.0-5.20); Red Cell Distribution Width 15.1 % (11.8-14.3); White Blood Cell 4.9 10^3/uL (4.4-10.8)
[2022-07-14 13:03] LABS: Albumin 3.6 g/dL (3.4-5.0); BUN/Creatinine Ratio 10.7; Bilirubin, Total 1.6 mg/dL (0.2-1.0); Calcium 9.8 mg/dL (8.5-10.1); Potassium 3.8 mmol/L (3.5-5.1); Total Protein 6.9 g/dL (6.4-8.2)
[2022-07-14] MEDS ORDERED: IPRATROPIUM BROM 0.5 MG/2.5ML INH SOL NEB ONE (16:30)
[2022-07-14] MEDS ORDERED: ALBUTEROL SULF 2.5 MG/0.5ML(0.5%) NEB SOLN NEB ONE (16:30)
[2022-07-14] MEDS ORDERED: methylPREDNISolone SOD SUCC 125 MG/2 ML VL IV ONE (16:30)
[2022-07-14] MEDS ORDERED: DOCUSATE SOD 100 MG CAP PO PRN (17:00)
[2022-07-14] MEDS ORDERED: ACETAMINOPHEN 325 MG TAB PO PRN (17:00)
[2022-07-14] MEDS ORDERED: ONDANSETRON HCL 4 MG/2 ML VIAL IV PRN (17:00)
[2022-07-14] MEDS ORDERED: NITROGLYCERIN 0.4 MG SL TAB SL PRN (17:00)
[2022-07-14] MEDS ORDERED: MORPHINE SULFATE INJ 2 MG/ml SYRG IV PRN (17:00)
[2022-07-14] MEDS ORDERED: IOHEXOL 350 MG/ML 100ML IJ ONE (17:25)
[2022-07-14] MEDS ORDERED: SODIUM CHLORIDE 0.9% 1,000 ML IV ONE (17:30)
[2022-07-14] MEDS: ALBUTEROL SULF 2.5 MG/0.5ML(0.5%) NEB SOLN NEB SCH (18:00)
[2022-07-14] MEDS: IPRATROPIUM BROM 0.5 MG/2.5ML INH SOL NEB SCH (18:00)
[2022-07-14 18:48] LABS: Cholesterol 159 mg/dL (< 200); HDL Cholesterol 62 mg/dL (40-59); LDL Cholesterol 85 mg/dL (< 100); Triglycerides 132 mg/dL (< 150)
[2022-07-14] MEDS ORDERED: SODIUM CHLOR 0.9% PF (SALINE LOCK) 10ML VIAL/SYR IV SCH (22:00)
[2022-07-14] MEDS: methylPREDNISolone SOD SUCC 125 MG/2 ML VL IV SCH (22:00)
[2022-07-15] MEDS: IPRATROPIUM BROM 0.5 MG/2.5ML INH SOL NEB SCH ×2 (06:42→11:47)
[2022-07-15] MEDS: ALBUTEROL SULF 2.5 MG/0.5ML(0.5%) NEB SOLN NEB SCH ×2 (06:43→11:47)
[2022-07-15 07:18] LABS: Basophils # (auto) 0 10 ^3/uL (0-0.2); Basophils % (auto) 0.5 % (0.0-2.0); Eosinophils # (auto) 0 10 ^3/uL (0-0.8); Hematocrit 41.9 % (36.0-46.0); Hemoglobin 14.4 g/dL (12.2-16.2); Lymphocytes # (auto) 0.9 10 ^3/uL (0.4-5.4); Lymphocytes % (auto) 12.1 % (10.0-50.0); Mean Corpuscular Hemoglobin 33.1 pg (28.0-32.0); Mean Corpuscular Hgb Conc. 34.4 g/dL (32.0-36.0); Mean Corpuscular Volume 96.3 fL (80.0-100.0); Monocytes # (auto) 0.6 10 ^3/uL (0-1.3); Monocytes % (auto) 8.1 % (0.0-12.0); Neutrophils # (auto) 5.7 10 ^3/uL (1.6-8.6); Neutrophils % (auto) 79.3 % (37.0-80.0); Nucleated Red Blood Cells % 0.1 %; Red Blood Cells 4.35 10^6/uL (4.0-5.20); White Blood Cell 7.2 10^3/uL (4.4-10.8)
[2022-07-15 07:35] LABS: Albumin 3.7 g/dL (3.4-5.0); BUN/Creatinine Ratio 15.4; Calcium 9.8 mg/dL (8.5-10.1); Potassium 3.9 mmol/L (3.5-5.1)
[2022-07-15 07:39] LABS: Bilirubin, Total 1.6 mg/dL (0.2-1.0); Total Protein 7.4 g/dL (6.4-8.2)
[2022-07-15] MEDS ORDERED: ENOXAPARIN SOD 40 MG/0.4 ML SYRINGE SC SCH (10:00)
[2022-07-15 11:30] VITALS: BP 189/62
[2022-07-15] MEDS ORDERED: VALSARTAN 80 MG TAB PO ONE (12:15)
[2022-07-15] MEDS: methylPREDNISolone SOD SUCC 125 MG/2 ML VL IV SCH (12:17)
[2022-07-15] MEDS ORDERED: SOD CHL 0.45% 500 ML IV SCH (13:30)
[2022-07-15 14:00] VITALS: BP 176/58
[2022-07-15] MEDS ORDERED: cloNIDine HCL 0.1 MG TAB PO ONE (14:45)
[2022-07-15 16:06] VITALS: BP 145/55
[2022-07-15 16:49] VITALS: BP 145/55
[2022-07-15 17:22] LABS: Urine Bacteria NONE SEEN /hpf (None Seen); Urine Blood Negative /uL (Negative); Urine Mucus FEW (None Seen); Urine WBC 5 /hpf (0 - 5)
[2022-07-15 18:29] LABS: Urine Specific Gravity > 1.050 (1.001-1.035)
== END 2022-07-15 17:24 | disposition home or self-care (01) | DRG 189 ==
LOC: ER 11:13 → TELE 16:52
PROVIDERS: ADMIT Nurse Practitioner Family; ATTEND Internal Medicine
DX: J96.01 Acute respiratory failure with hypoxia (principal); J44.1 Chronic obstructive pulmonary disease with (acute) exacerbation; D84.9 Immunodeficiency, unspecified; N17.9 Acute kidney failure, unspecified; E78.5 Hyperlipidemia, unspecified; I10 Essential (primary) hypertension; M19.90 Unspecified osteoarthritis, unspecified site; R73.9 Hyperglycemia, unspecified; Z82.49 Family history of ischemic heart disease and other diseases of the circulatory system; Z85.038 Personal history of other malignant neoplasm of large intestine; Z80.3 Family history of malignant neoplasm of breast; Z80.0 Family history of malignant neoplasm of digestive organs; Z90.710 Acquired absence of both cervix and uterus; Z90.49 Acquired absence of other specified parts of digestive tract
CPT/HCPCS: 36415; 71045; 71275; 80053; 80061; 81001; 83036; 83880; 84443; 84484; 85025; 87426; 93005; 93306; 94640; G0378

== ENCOUNTER → 2022-07-17 | Outpatient (CLI) | payer OTHER ==
[2022-07-17 12:47] LABS: Calcium 9.9 mg/dL (8.5-10.1); Potassium 3.5 mmol/L (3.5-5.1)
[2022-07-17 12:52] LABS: BUN/Creatinine Ratio 25.2
== END | disposition home or self-care (01) ==
LOC: LAB 11:55
PROVIDERS: ATTEND Internal Medicine
DX: J44.9 Chronic obstructive pulmonary disease, unspecified (principal)
CPT/HCPCS: 36415; 80048

== ENCOUNTER → 2022-08-07 | Outpatient (CLI) | payer OTHER ==
[2022-08-07 12:25] LABS: Calcium 10.2 mg/dL (8.5-10.1)
[2022-08-07 12:29] LABS: BUN/Creatinine Ratio 21.2
== END | disposition home or self-care (01) ==
LOC: LAB 11:30
PROVIDERS: ATTEND Internal Medicine
DX: I10 Essential (primary) hypertension (principal)
CPT/HCPCS: 36415; 80048

== ENCOUNTER → 2022-09-03 | Outpatient (CLI) | payer OTHER ==
[~2022-09-03] MED LIST changes: +REGADENOSON 0.4 MG/5 ML SYRG IV ONE
[2022-09-03 09:41] VITALS: BP 155/141
== END | disposition home or self-care (01) ==
LOC: XYW 08:02
PROVIDERS: ATTEND Internal Medicine
DX: I11.0 Hypertensive heart disease with heart failure (principal); I50.22 Chronic systolic (congestive) heart failure; R06.02 Shortness of breath; J44.9 Chronic obstructive pulmonary disease, unspecified; I73.9 Peripheral vascular disease, unspecified; I65.23 Occlusion and stenosis of bilateral carotid arteries; Z95.828 Presence of other vascular implants and grafts
CPT/HCPCS: 78452; 93017; A9500; J2785

== ENCOUNTER → 2022-09-30 | Outpatient (CLI) | payer OTHER ==
[~2022-09-30] MED LIST changes: -REGADENOSON 0.4 MG/5 ML SYRG IV ONE
== END | disposition home or self-care (01) ==
LOC: XY 09:43
PROVIDERS: ATTEND Internal Medicine
DX: I70.203 Unspecified atherosclerosis of native arteries of extremities, bilateral legs (principal); I77.72 Dissection of iliac artery; I70.8 Atherosclerosis of other arteries
CPT/HCPCS: 93925

== ENCOUNTER → 2022-10-24 | Outpatient (CLI) | payer OTHER | END | disposition home or self-care (01) | LOC: LAB 19:35 | PROVIDERS: ATTEND Family Medicine | DX: D00.01 Carcinoma in situ of labial mucosa and vermilion border (principal) | CPT/HCPCS: 88302 ==

== ENCOUNTER → 2022-10-31 | Outpatient (CLI) | payer OTHER ==
[2022-10-31 11:46] LABS: Eosinophils # (auto) 0 10 ^3/uL (0-0.8); Hemoglobin 13.2 g/dL (12.2-16.2); Lymphocytes # (auto) 0.7 10 ^3/uL (0.4-5.4); Neutrophils # (auto) 5.5 10 ^3/uL (1.6-8.6); White Blood Cell 6.9 10^3/uL (4.4-10.8)
[2022-10-31 11:49] LABS: Basophils # (auto) 0 10 ^3/uL (0-0.2); Basophils % (auto) 0.5 % (0.0-2.0); Eosinophils % (auto) 0.1 % (0.0-7.0); Hematocrit 37.4 % (36.0-46.0); Lymphocytes % (auto) 10.3 % (10.0-50.0); Mean Corpuscular Hemoglobin 35.5 pg (28.0-32.0); Mean Corpuscular Hgb Conc. 35.2 g/dL (32.0-36.0); Mean Corpuscular Volume 100.8 fL (80.0-100.0); Monocytes # (auto) 0.6 10 ^3/uL (0-1.3); Monocytes % (auto) 9.4 % (0.0-12.0); Neutrophils % (auto) 79.7 % (37.0-80.0); Nucleated Red Blood Cells % 0.1 %; Red Blood Cells 3.71 10^6/uL (4.0-5.20); Red Cell Distribution Width 14.5 % (11.8-14.3)
[2022-10-31 12:23] LABS: Albumin 3.7 g/dL (3.4-5.0); Calcium 9.7 mg/dL (8.5-10.1); Potassium 3.9 mmol/L (3.5-5.1)
[2022-10-31 12:33] LABS: BUN/Creatinine Ratio 14.1; CRP High Sensitivity 1.41 mg/dL (< 0.3)
== END | disposition home or self-care (01) ==
LOC: LAB 11:18
PROVIDERS: ATTEND Internal Medicine Rheumatology
DX: M05.79 Rheumatoid arthritis with rheumatoid factor of multiple sites without organ or systems involvement (principal); Z79.899 Other long term (current) drug therapy
CPT/HCPCS: 36415; 80053; 85025; 85652; 86141

== ENCOUNTER → 2023-01-14 | Day surgery (SDC) | payer MEDICARE, OTHER ==
[2023-01-12 11:13] LABS: Basophils # (auto) 0 10 ^3/uL (0-0.2); Basophils % (auto) 0.4 % (0.0-2.0); Eosinophils # (auto) 0 10 ^3/uL (0-0.8); Eosinophils % (auto) 0.1 % (0.0-7.0); Hemoglobin 13.5 g/dL (12.2-16.2); Lymphocytes # (auto) 0.7 10 ^3/uL (0.4-5.4); Lymphocytes % (auto) 8.1 % (10.0-50.0); Mean Corpuscular Hemoglobin 32.4 pg (28.0-32.0); Mean Corpuscular Hgb Conc. 34.6 g/dL (32.0-36.0); Mean Corpuscular Volume 93.7 fL (80.0-100.0); Monocytes % (auto) 10.4 % (0.0-12.0); Neutrophils # (auto) 7.5 10 ^3/uL (1.6-8.6); Red Blood Cells 4.16 10^6/uL (4.0-5.20); Red Cell Distribution Width 14.8 % (11.8-14.3); White Blood Cell 9.3 10^3/uL (4.4-10.8)
[2023-01-12 11:41] LABS: Partial Thromboplastin Time 27.8 sec (24.6-33.4)
[2023-01-12 12:49] LABS: Potassium 4.5 mmol/L (3.5-5.1)
[2023-01-12 12:58] LABS: Albumin 3.5 g/dL (3.4-5.0); BUN/Creatinine Ratio 13.4 (10.0-20.0); Bilirubin, Total 1.6 mg/dL (0.2-1.0); Calcium 9.7 mg/dL (8.5-10.1)
[2023-01-12 14:08] LABS: Urine Bacteria FEW /hpf (None Seen); Urine Blood Negative /uL (Negative); Urine Mucus FEW (None Seen); Urine Specific Gravity 1.018 (1.001-1.035); Urine WBC 11 /hpf (0 - 5)
[~2023-01-14] VITALS: Ht 162.6 cm; Wt 45.4 kg
[~2023-01-14] MED LIST changes: -CLOP75TA28 PO; +DOCU100T15 PO; -GABA300C10 PO; +LORA-655 PO; +SODIUM CHLORIDE LOCK 10 ML ONE
[2023-01-14] MEDS: diphenhdrAMINE HCL 50 MG/1 ML VL ONE ×2 (14:08→14:12)
[2023-01-14] MEDS: MIDAZOLAM HCL 5 MG/ML-1ML VIAL ONE ×4 (14:08→14:22)
[2023-01-14] MEDS: fentaNYL CITRATE 100 MCG/2 ML VL ONE ×3 (14:08→14:15)
[2023-01-14 15:20] VITALS: BP 176/67
== END | disposition home or self-care (01) ==
LOC: GI 13:08
PROVIDERS: ATTEND Internal Medicine Gastroenterology
DX: K59.00 Constipation, unspecified (principal); K62.1 Rectal polyp; K63.89 Other specified diseases of intestine; K64.8 Other hemorrhoids; J44.9 Chronic obstructive pulmonary disease, unspecified; I10 Essential (primary) hypertension; Z87.891 Personal history of nicotine dependence; Z85.038 Personal history of other malignant neoplasm of large intestine; Z95.5 Presence of coronary angioplasty implant and graft; Z90.710 Acquired absence of both cervix and uterus; Z82.49 Family history of ischemic heart disease and other diseases of the circulatory system; Z80.0 Family history of malignant neoplasm of digestive organs; Z80.3 Family history of malignant neoplasm of breast; Z84.89 Family history of other specified conditions; Z79.82 Long term (current) use of aspirin; Z98.891 History of uterine scar from previous surgery; Z79.899 Other long term (current) drug therapy; Z98.890 Other specified postprocedural states; Z86.010 Personal history of colon polyps; Q43.8 Other specified congenital malformations of intestine
CPT/HCPCS: 36415; 45380; 80053; 81001; 85025; 85610; 85730; J1200; J2250; J3010; J7030

== ENCOUNTER → 2023-01-27 | Outpatient (CLI) | payer OTHER ==
[~2023-01-27] MED LIST changes: -SODIUM CHLORIDE LOCK 10 ML ONE
== END | disposition home or self-care (01) ==
LOC: XY 09:37
PROVIDERS: ATTEND Internal Medicine
DX: I70.203 Unspecified atherosclerosis of native arteries of extremities, bilateral legs (principal)
CPT/HCPCS: 93925

== ENCOUNTER → 2023-02-03 | Outpatient (CLI) | payer OTHER ==
[~2023-02-03] MED LIST changes: +OMEG-20 PO; -OMEG100078 PO
[2023-02-03 11:20] LABS: Basophils # (auto) 0.1 10 ^3/uL (0-0.2); Basophils % (auto) 0.9 % (0.0-2.0); Eosinophils # (auto) 0 10 ^3/uL (0-0.8); Eosinophils % (auto) 0.1 % (0.0-7.0); Hematocrit 38.4 % (36.0-46.0); Lymphocytes # (auto) 0.9 10 ^3/uL (0.4-5.4); Lymphocytes % (auto) 14.7 % (10.0-50.0); Mean Corpuscular Hemoglobin 31.8 pg (28.0-32.0); Mean Corpuscular Hgb Conc. 33.8 g/dL (32.0-36.0); Mean Corpuscular Volume 93.9 fL (80.0-100.0); Monocytes # (auto) 0.6 10 ^3/uL (0-1.3); Monocytes % (auto) 9.2 % (0.0-12.0); Neutrophils # (auto) 4.7 10 ^3/uL (1.6-8.6); Neutrophils % (auto) 75.1 % (37.0-80.0); Nucleated Red Blood Cells % 0.1 %; Red Blood Cells 4.09 10^6/uL (4.0-5.20); White Blood Cell 6.2 10^3/uL (4.4-10.8)
[2023-02-03 12:08] LABS: INR 0.98 (0.9-1.15)
[2023-02-03 12:13] LABS: Carcinoembryonic Antigen 1.78 ng/mL (<5.0 OR =); Ferritin 165.3 ng/mL (10-322)
[2023-02-03 12:41] LABS: Albumin 3.7 g/dL (3.4-5.0); BUN/Creatinine Ratio 21.2 (10.0-20.0); Bilirubin, Total 1.4 mg/dL (0.2-1.0); CRP High Sensitivity 0.58 mg/dL (< 0.3); Calcium 9.4 mg/dL (8.5-10.1); Potassium 3.4 mmol/L (3.5-5.1); Total Protein 7.2 g/dL (6.4-8.2)
[2023-02-03 14:17] LABS: Hepatitis C Antibody Negative (Negative)
== END | disposition home or self-care (01) ==
LOC: LAB 10:59
PROVIDERS: ATTEND Internal Medicine Rheumatology
DX: C44.320 Squamous cell carcinoma of skin of unspecified parts of face (principal); R94.5 Abnormal results of liver function studies; M05.29 Rheumatoid vasculitis with rheumatoid arthritis of multiple sites; R53.1 Weakness; R91.1 Solitary pulmonary nodule
CPT/HCPCS: 36415; 80053; 82105; 82378; 82728; 84443; 85025; 85610; 85652; 86038; 86141; 86304; 86803; 87340

== ENCOUNTER → 2023-05-04 | Outpatient (CLI) | payer OTHER ==
[2023-05-04 14:21] LABS: Basophils # (auto) 0 10 ^3/uL (0-0.2); Basophils % (auto) 0.6 % (0.0-2.0); Eosinophils # (auto) 0 10 ^3/uL (0-0.8); Eosinophils % (auto) 0.4 % (0.0-7.0); Hematocrit 37.4 % (36.0-46.0); Hemoglobin 12.6 g/dL (12.2-16.2); Lymphocytes # (auto) 1.1 10 ^3/uL (0.4-5.4); Lymphocytes % (auto) 14.4 % (10.0-50.0); Mean Corpuscular Hemoglobin 31.4 pg (28.0-32.0); Mean Corpuscular Hgb Conc. 33.7 g/dL (32.0-36.0); Mean Corpuscular Volume 93.3 fL (80.0-100.0); Monocytes # (auto) 0.6 10 ^3/uL (0-1.3); Monocytes % (auto) 7.7 % (0.0-12.0); Neutrophils # (auto) 5.7 10 ^3/uL (1.6-8.6); Neutrophils % (auto) 76.9 % (37.0-80.0); Red Blood Cells 4.01 10^6/uL (4.0-5.20); Red Cell Distribution Width 14.9 % (11.8-14.3); White Blood Cell 7.4 10^3/uL (4.4-10.8)
[2023-05-04 15:19] LABS: Alanine Aminotransferase 27 U/L (7-40); Albumin 4.2 g/dL (3.2-4.8); Alkaline Phosphatase 64 U/L (46-116); Anion Gap 7.2 (5-15); Aspartate Aminotransferase 48 U/L (13-40); BUN/Creatinine Ratio 58.3 (10.0-20.0); Blood Urea Nitrogen 42 mg/dL (9-23); Calcium 9.9 mg/dL (8.7-10.4); Carbon Dioxide 26.8 mmol/L (20-30); Chloride 97 mmol/L (98-107); Glucose 96 mg/dL (74-106); Potassium 3.3 mmol/L (3.5-5.1); Sodium 131 mmol/L (136-145)
[2023-05-04 15:20] LABS: Bilirubin, Total 0.9 mg/dL (0.2-1.0); Total Protein 6.8 g/dL (5.7-8.2)
== END | disposition home or self-care (01) ==
LOC: LAB 14:06
PROVIDERS: ATTEND Internal Medicine
DX: N18.30 Chronic kidney disease, stage 3 unspecified (principal); R93.3 Abnormal findings on diagnostic imaging of other parts of digestive tract; K59.02 Outlet dysfunction constipation
CPT/HCPCS: 36415; 80053; 85025; 86304

== ENCOUNTER → 2023-05-28 | Outpatient (CLI) | payer OTHER ==
[2023-05-28 13:53] LABS: Alanine Aminotransferase 40 U/L (7-40); Albumin 4.6 g/dL (3.2-4.8); Alkaline Phosphatase 71 U/L (46-116); Anion Gap 5 (5-15); Aspartate Aminotransferase 56 U/L (13-40); BUN/Creatinine Ratio 13.8 (10.0-20.0); Bilirubin, Total 0.9 mg/dL (0.2-1.0); Blood Urea Nitrogen 13 mg/dL (9-23); Calcium 9.9 mg/dL (8.7-10.4); Carbon Dioxide 30 mmol/L (20-30); Chloride 95 mmol/L (98-107); Glucose 94 mg/dL (74-106); Potassium 3.8 mmol/L (3.5-5.1); Sodium 130 mmol/L (136-145); Total Protein 6.6 g/dL (5.7-8.2)
== END | disposition home or self-care (01) ==
LOC: LAB 12:17
PROVIDERS: ATTEND Internal Medicine
DX: N18.30 Chronic kidney disease, stage 3 unspecified (principal); R63.4 Abnormal weight loss
CPT/HCPCS: 36415; 80053

== ENCOUNTER → 2023-09-08 | Outpatient (CLI) | payer MEDICARE, OTHER ==
[2023-09-08 11:16] LABS: Basophils # (auto) 0 10 ^3/uL (0-0.2); Basophils % (auto) 0.5 % (0.0-2.0); Eosinophils # (auto) 0 10 ^3/uL (0-0.8); Eosinophils % (auto) 0.4 % (0.0-7.0); Hemoglobin 13.3 g/dL (12.2-16.2); Lymphocytes # (auto) 1.1 10 ^3/uL (0.4-5.4); Lymphocytes % (auto) 16.5 % (10.0-50.0); Mean Corpuscular Hemoglobin 29.9 pg (28.0-32.0); Mean Corpuscular Hgb Conc. 33.1 g/dL (32.0-36.0); Mean Corpuscular Volume 90.3 fL (80.0-100.0); Monocytes # (auto) 0.5 10 ^3/uL (0-1.3); Neutrophils # (auto) 5.2 10 ^3/uL (1.6-8.6); Neutrophils % (auto) 75.6 % (37.0-80.0); Nucleated Red Blood Cells % 0.1 %; Red Blood Cells 4.43 10^6/uL (4.0-5.20); Red Cell Distribution Width 15.3 % (11.8-14.3); White Blood Cell 6.8 10^3/uL (4.4-10.8)
[2023-09-08 11:56] LABS: Alanine Aminotransferase 30 U/L (7-40); Albumin 4.1 g/dL (3.2-4.8); Alkaline Phosphatase 90 U/L (46-116); Anion Gap 7 (5-15); Aspartate Aminotransferase 47 U/L (13-40); BUN/Creatinine Ratio 14.5 (10.0-20.0); Bilirubin, Total 1.3 mg/dL (0.2-1.0); Blood Urea Nitrogen 12 mg/dL (9-23); Calcium 9.9 mg/dL (8.5-10.1); Carbon Dioxide 29 mmol/L (20-30); Chloride 94 mmol/L (98-107); Glucose 83 mg/dL (74-106); Potassium 4.2 mmol/L (3.5-5.1); Sodium 130 mmol/L (136-145); Total Protein 6.7 g/dL (5.7-8.2)
[2023-09-08 12:04] LABS: CRP High Sensitivity 1.11 mg/dL (<1.0)
== END | disposition home or self-care (01) ==
LOC: LAB 10:53
PROVIDERS: ATTEND Internal Medicine Rheumatology
DX: N18.30 Chronic kidney disease, stage 3 unspecified (principal); M05.79 Rheumatoid arthritis with rheumatoid factor of multiple sites without organ or systems involvement; E87.1 Hypo-osmolality and hyponatremia; Z79.899 Other long term (current) drug therapy
CPT/HCPCS: 36415; 80053; 82607; 84443; 85025; 86141

== ENCOUNTER → 2023-11-09 | Outpatient (CLI) | payer OTHER ==
[2023-11-09 11:17] LABS: Basophils # (auto) 0.1 10 ^3/uL (0-0.2); Basophils % (auto) 0.8 % (0.0-2.0); Eosinophils # (auto) 0 10 ^3/uL (0-0.8); Eosinophils % (auto) 0.7 % (0.0-7.0); Hematocrit 38.6 % (36.0-46.0); Hemoglobin 12.8 g/dL (12.2-16.2); Lymphocytes % (auto) 14.6 % (10.0-50.0); Mean Corpuscular Hemoglobin 30.2 pg (28.0-32.0); Mean Corpuscular Hgb Conc. 33.3 g/dL (32.0-36.0); Mean Corpuscular Volume 90.8 fL (80.0-100.0); Monocytes # (auto) 0.8 10 ^3/uL (0-1.3); Neutrophils # (auto) 5.1 10 ^3/uL (1.6-8.6); Neutrophils % (auto) 72.9 % (37.0-80.0); Red Blood Cells 4.25 10^6/uL (4.0-5.20); Red Cell Distribution Width 15.8 % (11.8-14.3)
[2023-11-09 12:09] LABS: Alanine Aminotransferase 23 U/L (7-40); Alkaline Phosphatase 83 U/L (46-116); Anion Gap 3 (5-15); BUN/Creatinine Ratio 16.3 (10.0-20.0); Blood Urea Nitrogen 13 mg/dL (9-23); Calcium 10.2 mg/dL (8.5-10.1); Carbon Dioxide 30 mmol/L (20-30); Chloride 96 mmol/L (98-107); Glucose 82 mg/dL (74-106); Potassium 4.6 mmol/L (3.5-5.1); Sodium 129 mmol/L (136-145)
[2023-11-09 12:10] LABS: Albumin 3.7 g/dL (3.2-4.8)
[2023-11-09 12:11] LABS: Aspartate Aminotransferase 38 U/L (13-40); Bilirubin, Total 1.1 mg/dL (0.2-1.0); Total Protein 6.2 g/dL (5.7-8.2)
[2023-11-09 12:19] LABS: CRP High Sensitivity 1.28 mg/dL (<1.0)
[2023-11-09 12:26] LABS: Erythrocyte Sedimentation Rate 20 mm/hr (0-20)
== END | disposition home or self-care (01) ==
LOC: LAB 10:58
PROVIDERS: ATTEND Internal Medicine Rheumatology
DX: N18.2 Chronic kidney disease, stage 2 (mild) (principal); M06.9 Rheumatoid arthritis, unspecified; M05.79 Rheumatoid arthritis with rheumatoid factor of multiple sites without organ or systems involvement; Z79.899 Other long term (current) drug therapy
CPT/HCPCS: 36415; 80053; 85025; 85652; 86141

== ENCOUNTER 2023-12-20 02:49 | Inpatient (IN) | payer OTHER ==
[~2023-12-20] VITALS: Ht 162.6 cm; Wt 40.5 kg
[2023-12-20] VITALS (8 sets, daily range): BP systolic 158; BP diastolic 94; PULSE 46–102; RESP 14–20; TEMP 98.3; O2SAT 94–99
[2023-12-20 03:47] LABS: Basophils # (auto) 0 10 ^3/uL (0-0.2); Basophils % (auto) 0.6 % (0.0-2.0); Eosinophils # (auto) 0 10 ^3/uL (0-0.8); Eosinophils % (auto) 0.2 % (0.0-7.0); Hematocrit 42.8 % (36.0-46.0); Lymphocytes # (auto) 0.8 10 ^3/uL (0.4-5.4); Lymphocytes % (auto) 11.1 % (10.0-50.0); Mean Corpuscular Hemoglobin 29.1 pg (28.0-32.0); Mean Corpuscular Hgb Conc. 32.7 g/dL (32.0-36.0); Mean Corpuscular Volume 89.1 fL (80.0-100.0); Monocytes # (auto) 0.5 10 ^3/uL (0-1.3); Monocytes % (auto) 7.3 % (0.0-12.0); Neutrophils # (auto) 5.5 10 ^3/uL (1.6-8.6); Neutrophils % (auto) 80.8 % (37.0-80.0); Nucleated Red Blood Cells % 0.1 %; Red Cell Distribution Width 14.8 % (11.8-14.3); White Blood Cell 6.8 10^3/uL (4.4-10.8)
[2023-12-20 04:11] LABS: Albumin 4.1 g/dL (3.2-4.8); Alkaline Phosphatase 108 U/L (46-116); Anion Gap 10 (5-15); Aspartate Aminotransferase 57 U/L (13-40); BUN/Creatinine Ratio 20.9 (10.0-20.0); Bilirubin, Total 1.2 mg/dL (0.2-1.0); Blood Urea Nitrogen 18 mg/dL (9-23); Carbon Dioxide 22 mmol/L (20-30); Chloride 95 mmol/L (98-107); Glucose 143 mg/dL (74-106); Potassium 3.9 mmol/L (3.5-5.1); Sodium 127 mmol/L (136-145); Total Protein 7.4 g/dL (5.7-8.2)
[2023-12-20 04:12] LABS: Calcium 10.2 mg/dL (8.7-10.4)
[2023-12-20 04:21] LABS: Alanine Aminotransferase 37 U/L (7-40)
[2023-12-20] MEDS: ASPirin 81 mg TAB PO ONE (05:04)
[2023-12-20] MEDS: methylPREDNISolone SOD SUCC 125 MG/2 ML VL IV ONE (06:42)
[2023-12-20] MEDS: IPRATROPIUM BROM 0.5 MG/2.5ML INH SOL NEB ONE (06:47)
[2023-12-20] MEDS: ALBUTEROL SULF 2.5 MG/0.5ML(0.5%) NEB SOLN NEB ONE (06:47)
[2023-12-20] MEDS: ENOXAPARIN SOD 40 MG/0.4 ML SYRINGE SC ONE (07:06)
[2023-12-20 10:54] LABS: Urine Bacteria None Seen /hpf (None Seen)
[2023-12-20] MEDS: FUROSEMIDE 40 MG/4 ML VIAL IV ONE (11:09)
[2023-12-20 11:48] LABS: Urine Blood Negative /uL (Negative); Urine Clarity Clear (Clear); Urine Color Yellow (Yellow); Urine Mucus FEW (None Seen); Urine Protein, UAD 1+ (Negative); Urine Specific Gravity 1.025 (1.001-1.035); Urine Urobilinogen Normal (Negative); Urine WBC 1 /hpf (0 - 5); Urine pH 5.5 (5.0-9.0)
[2023-12-20] MEDS ORDERED: MORPHINE SULFATE INJ 2 MG/ml SYRG IV PRN ×2 (12:00)
[2023-12-20] MEDS ORDERED: NITROGLYCERIN 0.4 MG SL TAB SL PRN (12:00)
[2023-12-20] MEDS ORDERED: HYDROcodone-ACET 5/325MG TAB PO PRN (12:00)
[2023-12-20] MEDS ORDERED: CLOP75TA70 PO (12:03)
[2023-12-20] MEDS: IOHEXOL 350 MG/ML 100ML IJ ONE (12:06)
[2023-12-20] MEDS: IPRATROPIUM BROM 0.5 MG/2.5ML INH SOL NEB SCH ×2 (13:40→18:00)
[2023-12-20] MEDS: ALBUTEROL SULF 2.5 MG/0.5ML(0.5%) NEB SOLN NEB SCH (13:40)
[2023-12-20] MEDS: ALBUTEROL SULF 2.5 MG/0.5ML(0.5%) NEB SOLN NEB PRN (14:37)
[2023-12-20] MEDS: BUDESONIDE (INHALATION) 0.5 MG/2 ML NEB NEB SCH (18:07)
[2023-12-20] MEDS: IPRATROPIUM BROM 0.5 MG/2.5ML INH SOL ONE (18:07)
[2023-12-20] MEDS: ATORVASTATIN 20 MG TAB PO SCH (20:56)
[2023-12-20] MEDS: FUROSEMIDE 20 MG/2 ML VIAL IV SCH (20:56)
[2023-12-20] MEDS ORDERED: IPRATROPIUM BROM 0.5 MG/2.5ML INH SOL NEB SCH (22:00)
[2023-12-21] VITALS (20 sets, daily range): BP systolic 108–141; BP diastolic 60–78; PULSE 75–183; RESP 14–21; TEMP 97.5–98.8; O2SAT 94–100
[2023-12-21 06:11] LABS: Basophils # (auto) 0 10 ^3/uL (0-0.2); Basophils % (auto) 0.1 % (0.0-2.0); Eosinophils # (auto) 0 10 ^3/uL (0-0.8); Hematocrit 37.1 % (36.0-46.0); Hemoglobin 12.4 g/dL (12.2-16.2); Lymphocytes # (auto) 0.6 10 ^3/uL (0.4-5.4); Lymphocytes % (auto) 6.4 % (10.0-50.0); Mean Corpuscular Hemoglobin 30.1 pg (28.0-32.0); Mean Corpuscular Hgb Conc. 33.5 g/dL (32.0-36.0); Mean Corpuscular Volume 89.7 fL (80.0-100.0); Monocytes # (auto) 0.9 10 ^3/uL (0-1.3); Monocytes % (auto) 9.6 % (0.0-12.0); Neutrophils # (auto) 7.6 10 ^3/uL (1.6-8.6); Neutrophils % (auto) 83.9 % (37.0-80.0); Red Blood Cells 4.13 10^6/uL (4.0-5.20); Red Cell Distribution Width 14.5 % (11.8-14.3)
[2023-12-21 06:23] LABS: Alanine Aminotransferase 34 U/L (7-40); Alkaline Phosphatase 87 U/L (46-116); Anion Gap 8 (5-15); Aspartate Aminotransferase 43 U/L (13-40); BUN/Creatinine Ratio 27.6 (10.0-20.0); Blood Urea Nitrogen 21 mg/dL (9-23); Calcium 9.5 mg/dL (8.7-10.4); Carbon Dioxide 26 mmol/L (20-30); Chloride 95 mmol/L (98-107); Glucose 123 mg/dL (74-106); Potassium 3.2 mmol/L (3.5-5.1); Sodium 129 mmol/L (136-145)
[2023-12-21 06:24] LABS: Albumin 3.3 g/dL (3.2-4.8); Bilirubin, Total 0.9 mg/dL (0.2-1.0)
[2023-12-21] MEDS: CLOPIDOGREL BISULFATE 75 MG TAB PO SCH (07:55)
[2023-12-21] MEDS: POTASSIUM CHL 20 Meq TABLET PO SCH (07:55)
[2023-12-21] MEDS: METOPROLOL SUCCINATE XL 50 MG TAB PO SCH ×2 (08:00→10:00)
[2023-12-21] MEDS: ENOXAPARIN SOD 40 MG/0.4 ML SYRINGE SC SCH ×2 (08:11→10:00)
[2023-12-21] MEDS: ONDANSETRON HCL 4 MG/2 ML VIAL IV PRN (08:15)
[2023-12-21] MEDS: MAGNESIUM SULFATE 1GM/100ML 100 ML IV SCH (08:23)
[2023-12-21] MEDS: POTASSIUM CHL 20MEQ/100ML 100 ML IV SCH (08:25)
[2023-12-21] MEDS: AMIODARONE 450mg/250ml AE 250 ML IV ONE (08:34)
[2023-12-21] MEDS: AMIODARONE BOLUS KIT 100 ML IV ONE ×2 (08:34→08:40)
[2023-12-21] MEDS: AMIODARONE 450mg/250ml AE 250 ML IV SCH ×2 (09:05→14:45)
[2023-12-21] MEDS: SODIUM CHLORIDE 0.9% 1,000 ML IV SCH (09:26)
[2023-12-21] MEDS: MAGNESIUM OXIDE 400 MG TAB PO ONE (09:29)
[2023-12-21] MEDS: AMIODARONE HCL 200 MG TAB PO ONE (09:30)
[2023-12-21] MEDS: MAGNESIUM OXIDE 400 MG TAB PO SCH (10:00)
[2023-12-21] MEDS: POTASSIUM CHL 20 Meq TABLET PO ONE (10:15)
[2023-12-21] MEDS: PANTOPRAZOLE 40 MG/10 ML VIAL INJ IV SCH (11:28)
[2023-12-21] MEDS: SUCRALFATE 1 GM/10 ML ORAL SUSP PO SCH (13:31)
[2023-12-21] MEDS: METOPROLOL SUCCINATE XL 50 MG TAB PO ONE (13:33)
[2023-12-21 14:37] LABS: Triglycerides 60 mg/dL (< 150)
[2023-12-21 14:38] LABS: LDL Cholesterol 80 mg/dL (< 100)
[2023-12-21 14:39] LABS: Cholesterol 148 mg/dL (< 200); HDL Cholesterol 56 mg/dL (40-59)
[2023-12-21] MEDS: FUROSEMIDE 40 MG/4 ML VIAL IV SCH (17:59)
[2023-12-21] MEDS: SPIRONOLACTONE 25 MG TAB PO SCH (17:59)
[2023-12-21] MEDS: AMIODARONE HCL 200 MG TAB PO SCH (21:38)
[2023-12-22] VITALS (17 sets, daily range): BP systolic 102–148; BP diastolic 63–81; PULSE 73–82; RESP 17–99; TEMP 97.8–98.3; O2SAT 96–100
[2023-12-22] MEDS: ACETAMINOPHEN 325 MG TAB PO PRN (03:47)
[2023-12-22 05:35] LABS: Basophils # (auto) 0 10 ^3/uL (0-0.2); Basophils % (auto) 0.2 % (0.0-2.0); Eosinophils # (auto) 0 10 ^3/uL (0-0.8); Hematocrit 40.1 % (36.0-46.0); Hemoglobin 13.6 g/dL (12.2-16.2); Mean Corpuscular Hemoglobin 30.6 pg (28.0-32.0); Mean Corpuscular Hgb Conc. 33.8 g/dL (32.0-36.0); Mean Corpuscular Volume 90.4 fL (80.0-100.0); Monocytes # (auto) 0.6 10 ^3/uL (0-1.3); Monocytes % (auto) 6.2 % (0.0-12.0); Neutrophils % (auto) 83.6 % (37.0-80.0); Red Blood Cells 4.43 10^6/uL (4.0-5.20); White Blood Cell 9.6 10^3/uL (4.4-10.8)
[2023-12-22 05:40] LABS: Alanine Aminotransferase 49 U/L (7-40); Albumin 3.7 g/dL (3.2-4.8); Alkaline Phosphatase 101 U/L (46-116); Anion Gap 6 (5-15); Aspartate Aminotransferase 58 U/L (13-40); BUN/Creatinine Ratio 25.2 (10.0-20.0); Blood Urea Nitrogen 26 mg/dL (9-23); Calcium 10.2 mg/dL (8.7-10.4); Carbon Dioxide 26 mmol/L (20-30); Chloride 96 mmol/L (98-107); Glucose 117 mg/dL (74-106); Magnesium 2.4 mg/dL (1.6-2.6); Sodium 128 mmol/L (136-145)
[2023-12-22 05:41] LABS: Total Protein 6.7 g/dL (5.7-8.2)
[2023-12-22] MEDS ORDERED: SPIRONOLACTONE 25 MG TAB PO SCH (10:00)
[2023-12-22] MEDS ORDERED: HEPARIN SODIUM (PORCINE) 5000 UNITS/ML 1ML VIAL SC SCH (10:00)
[2023-12-22] MEDS: DOCUSATE SOD 100 MG CAP PO PRN (18:31)
[2023-12-22] MEDS: LACTULOSE 20Gm/30ML SOLN PO ONE (21:38)
[2023-12-22] MEDS: APIXABAN 2.5 MG TAB PO SCH (21:39)
[2023-12-22] MEDS: SACUBITRIL-VALSARTAN 24mg/26mg TAB PO SCH (21:39)
[2023-12-23] VITALS (14 sets, daily range): BP systolic 94–153; BP diastolic 47–82; PULSE 16–86; RESP 16–18; TEMP 97–98.3; O2SAT 94–100
[2023-12-23] MEDS: hydrALAZINE HCL 20 MG/ML VL IV PRN (00:28)
[2023-12-23 05:56] LABS: Basophils # (auto) 0 10 ^3/uL (0-0.2); Basophils % (auto) 0.1 % (0.0-2.0); Eosinophils # (auto) 0 10 ^3/uL (0-0.8); Hematocrit 39.7 % (36.0-46.0); Hemoglobin 13.1 g/dL (12.2-16.2); Lymphocytes # (auto) 0.3 10 ^3/uL (0.4-5.4); Lymphocytes % (auto) 2.5 % (10.0-50.0); Mean Corpuscular Hemoglobin 29.1 pg (28.0-32.0); Mean Corpuscular Hgb Conc. 32.9 g/dL (32.0-36.0); Mean Corpuscular Volume 88.5 fL (80.0-100.0); Monocytes # (auto) 1.1 10 ^3/uL (0-1.3); Monocytes % (auto) 8.1 % (0.0-12.0); Neutrophils # (auto) 12.4 10 ^3/uL (1.6-8.6); Neutrophils % (auto) 89.3 % (37.0-80.0); Red Blood Cells 4.48 10^6/uL (4.0-5.20); Red Cell Distribution Width 14.8 % (11.8-14.3); White Blood Cell 13.9 10^3/uL (4.4-10.8)
[2023-12-23 06:13] LABS: Alanine Aminotransferase 42 U/L (7-40); Albumin 3.2 g/dL (3.2-4.8); Alkaline Phosphatase 93 U/L (46-116); Anion Gap 8 (5-15); Aspartate Aminotransferase 48 U/L (13-40); BUN/Creatinine Ratio 28.6 (10.0-20.0); Blood Urea Nitrogen 28 mg/dL (9-23); Calcium 9.7 mg/dL (8.7-10.4); Carbon Dioxide 28 mmol/L (20-30); Chloride 95 mmol/L (98-107); Glucose 98 mg/dL (74-106); Magnesium 1.9 mg/dL (1.6-2.6); Potassium 3.3 mmol/L (3.5-5.1); Sodium 131 mmol/L (136-145)
[2023-12-23 06:14] LABS: Bilirubin, Total 1.4 mg/dL (0.2-1.0); Total Protein 5.9 g/dL (5.7-8.2)
[2023-12-23] MEDS ORDERED: SACU1TAB PO (10:52)
[2023-12-23] MEDS ORDERED: SPIR25TA8 PO (10:52)
[2023-12-23] MEDS ORDERED: POTA-36 PO (10:52)
[2023-12-23] MEDS ORDERED: FURO40TA4 PO (10:52)
[2023-12-23] MEDS ORDERED: APIX2.5T PO (10:54)
[2023-12-23] MEDS ORDERED: PANT40T PO (10:54)
[2023-12-23] MEDS: POTASSIUM CHL 20 Meq TABLET PO ONE (10:57)
== END 2023-12-23 16:30 | disposition home or self-care (01) | DRG 280 ==
LOC: ER 02:49 → TELE 11:59 → TELE-WESTW 18:24
PROVIDERS: ADMIT Internal Medicine; ATTEND Internal Medicine
DX: I11.0 Hypertensive heart disease with heart failure (principal); I21.A1 Myocardial infarction type 2; I50.43 Acute on chronic combined systolic (congestive) and diastolic (congestive) heart failure; J96.21 Acute and chronic respiratory failure with hypoxia; N17.0 Acute kidney failure with tubular necrosis; I48.20 Chronic atrial fibrillation, unspecified; J44.9 Chronic obstructive pulmonary disease, unspecified; M06.9 Rheumatoid arthritis, unspecified; E78.5 Hyperlipidemia, unspecified; I73.9 Peripheral vascular disease, unspecified; I25.10 Atherosclerotic heart disease of native coronary artery without angina pectoris; E87.6 Hypokalemia; E83.42 Hypomagnesemia; Z90.710 Acquired absence of both cervix and uterus; Z90.49 Acquired absence of other specified parts of digestive tract; Z87.891 Personal history of nicotine dependence; Z85.038 Personal history of other malignant neoplasm of large intestine; Z79.02 Long term (current) use of antithrombotics/antiplatelets
CPT/HCPCS: 36415; 71045; 71275; 80053; 80061; 81001; 83735; 83880; 84132; 84484; 85025; 85379; 87086; 93005; 93306; 94640; C9113; G0378; J2405; J3480

== ENCOUNTER → 2024-01-04 | Outpatient (CLI) | payer OTHER ==
[~2024-01-04] MED LIST changes: +APIX2.5T PO; +CLOP75TA70 PO; +FURO40TA4 PO; +PANT40T PO; +POTA-36 PO; +SACU1TAB PO; +SPIR25TA8 PO
[2024-01-04 10:14] LABS: Basophils # (auto) 0.1 10 ^3/uL (0-0.2); Basophils % (auto) 0.8 % (0.0-2.0); Eosinophils # (auto) 0.2 10 ^3/uL (0-0.8); Eosinophils % (auto) 2.6 % (0.0-7.0); Hematocrit 38.4 % (36.0-46.0); Hemoglobin 12.7 g/dL (12.2-16.2); Lymphocytes # (auto) 0.6 10 ^3/uL (0.4-5.4); Lymphocytes % (auto) 7.9 % (10.0-50.0); Mean Corpuscular Hemoglobin 29.1 pg (28.0-32.0); Mean Corpuscular Hgb Conc. 33.2 g/dL (32.0-36.0); Mean Corpuscular Volume 87.8 fL (80.0-100.0); Monocytes # (auto) 0.8 10 ^3/uL (0-1.3); Monocytes % (auto) 10.9 % (0.0-12.0); Neutrophils # (auto) 5.5 10 ^3/uL (1.6-8.6); Neutrophils % (auto) 77.8 % (37.0-80.0); Red Blood Cells 4.38 10^6/uL (4.0-5.20); Red Cell Distribution Width 15.3 % (11.8-14.3); White Blood Cell 7.1 10^3/uL (4.4-10.8)
[2024-01-04 11:55] LABS: Alanine Aminotransferase 23 U/L (7-40); Albumin 3.7 g/dL (3.2-4.8); Alkaline Phosphatase 81 U/L (46-116); Anion Gap 5 (5-15); Aspartate Aminotransferase 37 U/L (13-40); BUN/Creatinine Ratio 32.4 (10.0-20.0); Bilirubin, Total 1.1 mg/dL (0.2-1.0); Blood Urea Nitrogen 35 mg/dL (9-23); Carbon Dioxide 31 mmol/L (20-30); Chloride 95 mmol/L (98-107); Glucose 70 mg/dL (74-106); Potassium 3.8 mmol/L (3.5-5.1); Sodium 131 mmol/L (136-145); Total Protein 6.4 g/dL (5.7-8.2)
== END | disposition home or self-care (01) ==
LOC: LAB 09:26
PROVIDERS: ATTEND Internal Medicine
DX: R91.1 Solitary pulmonary nodule (principal); J44.9 Chronic obstructive pulmonary disease, unspecified; I11.0 Hypertensive heart disease with heart failure; Z79.899 Other long term (current) drug therapy; Z85.038 Personal history of other malignant neoplasm of large intestine
CPT/HCPCS: 36415; 80053; 82378; 83880; 84443; 85025

== ENCOUNTER → 2024-03-14 | Outpatient (CLI) | payer OTHER ==
[2024-03-14 11:52] LABS: Basophils # (auto) 0.1 10 ^3/uL (0-0.2); Basophils % (auto) 1.2 % (0.0-2.0); Eosinophils # (auto) 0.2 10 ^3/uL (0-0.8); Hemoglobin 12.5 g/dL (12.2-16.2); Lymphocytes % (auto) 16.7 % (10.0-50.0); Mean Corpuscular Hemoglobin 30.5 pg (28.0-32.0); Mean Corpuscular Hgb Conc. 33.8 g/dL (32.0-36.0); Monocytes # (auto) 0.6 10 ^3/uL (0-1.3); Monocytes % (auto) 9.9 % (0.0-12.0); Neutrophils # (auto) 4.1 10 ^3/uL (1.6-8.6); Neutrophils % (auto) 68.2 % (37.0-80.0); Red Blood Cells 4.11 10^6/uL (4.0-5.20); Red Cell Distribution Width 21.4 % (11.8-14.3); White Blood Cell 6.1 10^3/uL (4.4-10.8)
[2024-03-14 14:03] LABS: Free T3 2.84 pg/mL (2.3-4.2); Free T4 (Free Thyroxine) 1.21 ng/dL (0.89-1.76)
[2024-03-14 14:08] LABS: Alanine Aminotransferase 23 U/L (7-40); Albumin 4.3 g/dL (3.2-4.8); Alkaline Phosphatase 74 U/L (46-116); Anion Gap 9 (5-15); Aspartate Aminotransferase 38 U/L (13-40); BUN/Creatinine Ratio 22.4 (10.0-20.0); Bilirubin, Total 0.9 mg/dL (0.2-1.0); Blood Urea Nitrogen 24 mg/dL (9-23); Calcium 10.8 mg/dL (8.5-10.1); Carbon Dioxide 23 mmol/L (20-30); Chloride 103 mmol/L (98-107); Cholesterol 264 mg/dL (< 200); Glucose 87 mg/dL (74-106); HDL Cholesterol 60 mg/dL (40-59); LDL Cholesterol 153 mg/dL (< 100); Potassium 4.2 mmol/L (3.5-5.1); Sodium 135 mmol/L (136-145); Total Protein 7.3 g/dL (5.7-8.2); Triglycerides 154 mg/dL (< 150)
== END | disposition home or self-care (01) ==
LOC: LAB 11:22
PROVIDERS: ATTEND Internal Medicine
DX: I11.0 Hypertensive heart disease with heart failure (principal); I50.9 Heart failure, unspecified; E78.5 Hyperlipidemia, unspecified; R63.4 Abnormal weight loss
CPT/HCPCS: 36415; 80053; 80061; 82306; 82607; 83880; 84207; 84439; 84443; 84481; 85025

== ENCOUNTER → 2024-04-20 | Outpatient (CLI) | payer OTHER, MEDICARE ==
[2024-04-20 13:38] LABS: Urine Bacteria None Seen /hpf (None Seen)
[2024-04-20 13:48] LABS: Urine Blood Negative /uL (Negative); Urine Clarity Clear (Clear); Urine Color Light-Yellow (Yellow); Urine Protein, UAD Negative (Negative); Urine Specific Gravity 1.007 (1.001-1.035); Urine Urobilinogen Normal (Negative); Urine WBC 3 /hpf (0 - 5); Urine pH 6.5 (5.0-9.0)
[2024-04-20 13:51] LABS: Basophils # (auto) 0.1 10 ^3/uL (0-0.2); Basophils % (auto) 1.2 % (0.0-2.0); Eosinophils # (auto) 0.4 10 ^3/uL (0-0.8); Eosinophils % (auto) 5.6 % (0.0-7.0); Hematocrit 36.4 % (36.0-46.0); Hemoglobin 12.2 g/dL (12.2-16.2); Lymphocytes # (auto) 1.4 10 ^3/uL (0.4-5.4); Lymphocytes % (auto) 17.6 % (10.0-50.0); Mean Corpuscular Hemoglobin 31.7 pg (28.0-32.0); Mean Corpuscular Hgb Conc. 33.6 g/dL (32.0-36.0); Mean Corpuscular Volume 94.5 fL (80.0-100.0); Monocytes # (auto) 0.8 10 ^3/uL (0-1.3); Monocytes % (auto) 10.4 % (0.0-12.0); Neutrophils # (auto) 5.2 10 ^3/uL (1.6-8.6); Neutrophils % (auto) 65.2 % (37.0-80.0); Red Blood Cells 3.85 10^6/uL (4.0-5.20); Red Cell Distribution Width 13.6 % (11.8-14.3); White Blood Cell 7.9 10^3/uL (4.4-10.8)
[2024-04-20 14:23] LABS: Erythrocyte Sedimentation Rate 33 mm/hr (0-20)
[2024-04-20 14:50] LABS: Alanine Aminotransferase 14 U/L (7-40); Albumin 3.9 g/dL (3.2-4.8); Alkaline Phosphatase 71 U/L (46-116); Anion Gap 0 (5-15); Aspartate Aminotransferase 25 U/L (13-40); BUN/Creatinine Ratio 18.4 (10.0-20.0); Bilirubin, Total 0.4 mg/dL (0.2-1.0); Blood Urea Nitrogen 18 mg/dL (9-23); Calcium 10.3 mg/dL (8.7-10.4); Carbon Dioxide 31 mmol/L (20-30); Chloride 104 mmol/L (98-107); Glucose 105 mg/dL (74-106); Potassium 4.4 mmol/L (3.5-5.1); Sodium 135 mmol/L (136-145); Total Protein 6.7 g/dL (5.7-8.2)
== END | disposition home or self-care (01) ==
LOC: LAB 13:20
PROVIDERS: ATTEND Internal Medicine Rheumatology
DX: M05.79 Rheumatoid arthritis with rheumatoid factor of multiple sites without organ or systems involvement (principal); Z79.899 Other long term (current) drug therapy
CPT/HCPCS: 36415; 80053; 81001; 85025; 85652; 86141

== ENCOUNTER → 2024-06-02 | Outpatient (CLI) | payer OTHER, MEDICARE ==
[2024-06-02 15:06] LABS: Basophils # (auto) 0.1 10 ^3/uL (0-0.2); Basophils % (auto) 0.9 % (0.0-2.0); Eosinophils # (auto) 0.3 10 ^3/uL (0-0.8); Eosinophils % (auto) 3.6 % (0.0-7.0); Hematocrit 35.9 % (36.0-46.0); Hemoglobin 12.4 g/dL (12.2-16.2); Lymphocytes # (auto) 1.4 10 ^3/uL (0.4-5.4); Lymphocytes % (auto) 16.4 % (10.0-50.0); Mean Corpuscular Hemoglobin 30.3 pg (28.0-32.0); Mean Corpuscular Hgb Conc. 34.5 g/dL (32.0-36.0); Mean Corpuscular Volume 87.7 fL (80.0-100.0); Monocytes # (auto) 0.9 10 ^3/uL (0-1.3); Monocytes % (auto) 10.4 % (0.0-12.0); Neutrophils # (auto) 5.9 10 ^3/uL (1.6-8.6); Neutrophils % (auto) 68.7 % (37.0-80.0); Platelet Count (auto) 298 10^3/uL (140-450); Red Blood Cells 4.09 10^6/uL (4.0-5.20); Red Cell Distribution Width 13.9 % (11.8-14.3); White Blood Cell 8.5 10^3/uL (4.4-10.8)
[2024-06-02 15:18] LABS: INR 1.1 (0.9-1.15); Prothrombin Time 11.6 sec (9.3-11.8)
[2024-06-02 15:29] LABS: Alanine Aminotransferase 14 U/L (7-40); Albumin 4.2 g/dL (3.2-4.8); Alkaline Phosphatase 86 U/L (46-116); Anion Gap 4 (5-15); Aspartate Aminotransferase 30 U/L (13-40); BUN/Creatinine Ratio 15.2 (10.0-20.0); Bilirubin, Total 0.5 mg/dL (0.2-1.0); Blood Urea Nitrogen 16 mg/dL (9-23); Calcium 10.7 mg/dL (8.7-10.4); Carbon Dioxide 28 mmol/L (20-31); Chloride 99 mmol/L (98-107); Cholesterol 225 mg/dL (< 200); Glucose 86 mg/dL (74-106); HDL Cholesterol 54 mg/dL (40-59); LDL Cholesterol 148 mg/dL (< 100); Potassium 4.7 mmol/L (3.5-5.1); Sodium 131 mmol/L (136-145); Total Protein 7.1 g/dL (5.7-8.2); Triglycerides 113 mg/dL (< 150)
[2024-06-02 15:32] LABS: Carcinoembryonic Antigen 1.85 ng/mL (<=5.0); Ferritin 22.9 ng/mL (10-291)
[2024-06-03 10:52] LABS: Cancer Antigen (CA) 125 96.8 U/mL (0.0-38.1)
[2024-06-03 16:06] LABS: Anti-Nuclear Antibody Direct Negative (Negative)
== END | disposition home or self-care (01) ==
LOC: LAB 14:35
PROVIDERS: ATTEND Internal Medicine Gastroenterology
DX: I10 Essential (primary) hypertension (principal); J44.9 Chronic obstructive pulmonary disease, unspecified; R94.5 Abnormal results of liver function studies
CPT/HCPCS: 36415; 80053; 80061; 82378; 82607; 82728; 84207; 84443; 85025; 85610; 86038; 86304

== ENCOUNTER 2024-07-07 15:10 | Emergency (ER) | payer OTHER ==
[~2024-07-07] VITALS: Ht 162.6 cm; Wt 45.3 kg
[2024-07-07 17:00] VITALS: BP 142/80; PULSE 102; RESP 17; TEMP 97.9; O2SAT 98
== END 2024-07-07 17:09 | disposition home or self-care (01) ==
LOC: ER 15:21
DX: S16.1XXA Strain of muscle, fascia and tendon at neck level, initial encounter (principal); S50.01XA Contusion of right elbow, initial encounter; S09.8XXA Other specified injuries of head, initial encounter; I10 Essential (primary) hypertension; J44.9 Chronic obstructive pulmonary disease, unspecified; E78.5 Hyperlipidemia, unspecified; M19.90 Unspecified osteoarthritis, unspecified site; Z85.9 Personal history of malignant neoplasm, unspecified; Z90.49 Acquired absence of other specified parts of digestive tract; Z90.710 Acquired absence of both cervix and uterus; Z98.890 Other specified postprocedural states; Z79.02 Long term (current) use of antithrombotics/antiplatelets; Z79.01 Long term (current) use of anticoagulants; Z79.82 Long term (current) use of aspirin; Z79.899 Other long term (current) drug therapy; W01.198A Fall on same level from slipping, tripping and stumbling with subsequent striking against other object, initial encounter; Y93.01 Activity, walking, marching and hiking; Y92.89 Other specified places as the place of occurrence of the external cause; Y99.8 Other external cause status
CPT/HCPCS: 70450; 72125; 73070

== ENCOUNTER → 2024-07-07 | Outpatient (CLI) | payer OTHER ==
[2024-07-07 14:03] LABS: Chloride 100 mmol/L (98-107); Sodium 134 mmol/L (136-145)
[2024-07-07 14:04] LABS: Anion Gap 8 (5-15); Carbon Dioxide 26 mmol/L (20-31)
[2024-07-07 14:05] LABS: Calcium 10.5 mg/dL (8.7-10.4)
[2024-07-07 14:09] LABS: BUN/Creatinine Ratio 34.4 (10.0-20.0); Blood Urea Nitrogen 43 mg/dL (9-23); Glucose 97 mg/dL (74-106)
== END | disposition home or self-care (01) ==
LOC: LAB 13:28
PROVIDERS: ATTEND Internal Medicine
DX: R60.0 Localized edema (principal)
CPT/HCPCS: 36415; 80048; 83880

== ENCOUNTER 2024-07-12 12:25 | Inpatient (IN) | payer OTHER ==
[~2024-07-12] VITALS: Ht 157.5 cm; Wt 40.0 kg
[~2024-07-12 12:25] MED LIST changes: +GABA-1308 PO; +PANT40TA2 PO
--- NOTE | 2024-07-12 12:47 | ED.PDOC ---
Musculoskeletal HPI Comments HPI: Poor Historian. 88-year-old female presents to the emergency department for evaluation of bilateral feet swelling for approximately one-week. Patient denies any associated acute shortness of breath. She does have history of COPD. Patient is on Eliquis for history of atrial fibrillation and she states compliance with her medications. Vitals: Temp: 98.0 F Heart rate: 79 RR: 20 BP: 125/55 02 sat: 97% on room air PMH: HTN, hyperlipidemia, AFIB, COPD, cancer , RA PSH: Appendectomy, Hysterectomy, Tonsillectomy social history: denies tobacco use, endorses ETOH use, denies drug use medications: pantoprazole, eliquis, spironolactone, albuterol, atorvastatin,gabapentin, metoprolol allergies: NKDA REVIEW OF SYSTEMS: CONSTITUTIONAL: Denies acute: fever, diaphoresis, chills, generalized weakness. HEAD: Denies acute: headache, photophobia Eyes: Denies acute: Double vision, vision loss, eye pain, eye discharge. EARS: Denies acute: tinnitus, hearing loss, ear discharge, ear pain, THROAT: Denies acute: sore throat, swelling, difficulty swallowing , pain with swallowing, change in voice. NECK: Denies acute: neck pain, neck swelling, stiff neck. HEART: Denies acute : chest pain, palpitations, LUNGS: Denies acute: SOB, wheezing, cough, hemoptysis ABDOMEN: Denies acute: abdominal pain, Nausea, Vomiting, diarrhea, melena , hematemesis, hematochezia SKIN: Denies acute: rash, redness, lesions, itchiness. EXTREMITIES: Denies acute: calf pain, numbness, tingling, weakness, denies pain in extremity. Denies acute: Low back pain. Neuro: Denies acute: focal neurological deficit, motor or sensory focal neurological deficit, tremors, seizure like activity, confusion, dizziness, change in mental status, loss of bowel or bladder function, cauda equina like symptoms. : Denies acute: dysuria, hematuria, flank pain, increase in urinary frequency. PSYCH: Denies acute: hallucination, suicidal ideation, homicidal ideation. FEMALE: Denies acute: abnormal vaginal bleeding, foul odor, unusual discharge. PHYSICAL EXAM: General: no acute distress, awake and alert. Head: normocephalic, atraumatic. Neck: supple, trachea is midline, no swelling. Throat: Normal phonation. Eyes:, no erythema, no purulent discharge, no proptosis, no icterus. Heart: regular rate, regular rhythm, no significant murmur appreciated. Lungs: no apparent respiratory distress, Able to speak in full sentences. No wheezing, no rhonchi, no crackles. No stridors Clear to auscultation bilaterally. Abdomen: non tender to palpation, non distended, soft, no guarding, no rebound, + bowel sounds. Neuro: Awake, Alert, oriented to name, self, situation, follows commands GCS=15. Speech is normal. Skin: no petechia, no purpura, no cyanosis, non-pale, not jaundice. Lower extremities: --two/for bilateral- Pitting edema in bilateral feet no deformity, no focal swelling, no calf TTP. Pedal pulses are palpable bilaterally. Patient is neurovascularly intact in bilateral lower extremities. Makes eye contact. moves all four extremities. Face: no apparent facial droop. Ambulating in the ED independently. Chief Complaint: Lower Extremity Time Seen by MD: 12:30 Primary Care Provider: BAILEY Reviewed Notes: Nurses Notes, Medications, Allergies Allergies: Coded Allergies: NO KNOWN ALLERGIES (Verified , 02/17/22) Home Meds Active Scripts Pantoprazole Sodium Sesquihydr (Pantoprazole Sodium) 40 Mg Tab, 40 MG PO DAILY for 30 Days, #30 TAB Prov:RAY DOWLING RESIDENT 12/23/23 Apixaban Base (ELIQUIS) 2.5 Mg Tab, 2.5 MG PO BID for 30 Days, #60 TAB Prov:RAY DOWLING RESIDENT 12/23/23 Sacubitril-Valsartan (Entresto 24-26 mg) 1 Tab Tab, 0.5 TAB PO BID for 30 Days, #30 TAB Prov:RAY DOWLING RESIDENT 12/23/23 Potassium Chloride (POTASSIUM CHLORIDE CR) 10 Meq Tb, 10 MEQ PO DAILY for 15 Days, #15 TAB Prov:RAY DOWLING RESIDENT 12/23/23 Furosemide (Furosemide) 40 Mg Tab, 40 MG PO DAILY for 30 Days, #30 TAB Prov:RAY DOWLING RESIDENT 12/23/23 Spironolactone (Spironolactone) 25 Mg Tab, 1 TAB PO DAILY for 30 Days, #30 TAB 1 Refill Prov:KENA CisseRAY RESIDENT 12/23/23 Albuterol Sulfate (VENTOLIN MDI) 90 Mcg Ih, 90 MCG IN Q8HPRN PRN for 30 Days, #5 INH Prov:BABS FRANKS MD 05/15/21 Reported Medications Clopidogrel Bisulfate (CLOPIDOGREL) 75 Mg Tab, 1 TAB PO DAILY 12/20/23 Lorazepam (Ativan) 0.5 Mg Tab, 0.5 MG PO DAILY, TAB 01/13/23 Docusate Sodium (Docusate Sodium) 100 Mg Tab, 100 MG PO DAILY, TAB 01/13/23 Hydroxychloroquine Sulfate (Hydroxychloroquine Sulfat) 200 Mg Tab, 1 TAB PO DAILY for RHEUMATOID ARTHRITIS 02/17/22 Valsartan-Hydrochlorothiazide (VALSARTAN/HYDROCHLOROTHIA) 1 Tab Tab, 1 TAB PO QAM for HTN, TAB 02/17/22 [place]-3 Fatty Acids (FISH OIL) 1,000 Mg Cap, 1000 MG PO HS for SUPPLEMENT, CAP 02/17/22 Calcium Citrate-Vitamin D (Calcitrate/Vitamin D) Vit D Tab, 1 D PO HS for SUPPLEMENT, TAB 02/17/22 B Complex W/ C (B-Complex Plus Vitamin C) 1 Tab Tab, 1 TAB PO HS for SUPPLEMENT, TAB 02/17/22 Metoprolol Succinate (Metoprolol Succinate Er) 25 Mg Tab, 1 TAB PO DAILY, #30 TAB 0 Refills 01/05/21 Multiple Vitamin (Multivitamins) Cap, 1 CAP PO DAILY, #30 CAP 0 Refills 01/05/21 Clonidine Hydrochloride (Clonidine Hcl) 0.1 Mg Tab, 0.1 MG PO PRN for 30 Days, MG 11/03/17 Folic Acid (Folic Acid) 800 Mcg Cap, 800 MCG PO DAILY, CAP 09/21/17 Cholecalciferol (Gnp Vitamin D) 1,000 Unit Tab, 1 TAB PO DAILY, #30 TAB 5 Refills 09/21/17 Aspirin (Aspir-Low) 81 Mg Tab, 81 MG PO DAILY for 30 Days, MG 09/21/17 Potassium Chloride (Klor-Con M20) 20 Meq Tab, 1 TAB PO BID 09/21/17 Methotrexate (Methotrexate) 2.5 Mg Tab, 7 TAB PO QWEEKLY, MG 09/21/17 Atorvastatin Calcium (ATORVASTATIN CALCIUM) 40 Mg Tab, 40 MG PO HS, TAB 02/18/16 Information Source: Patient Mode of Arrival: Ambulatory Past Medical History PAST MEDICAL HISTORY: Arthritis, Cancer, COPD, High Lipids, HTN Surgical History: Appendectomy, Hysterectomy, Tonsillectomy DIRECTOR [employer] History: No Pertinent DIRECTOR [employer]EARCH History Family History Family History: Family hx of Cancer, Family hx of heart ro Social History Smoker: Non-Smoker Alcohol: Occasionally Drugs: Denies Drug Use Lives In: Home Was a procedure done? Was a procedure done?: No Differential Diagnosis EXT Differential Diagnosis: Other (Leg swellingDdx include but not limited to DVT, ischemic limb, pitting edema, volume overload, CHF, cellulitis, hematoma, compartment syndrome, dependent edema, venous stasis.) X-Ray, Labs, Meds, VS Vital Signs Date Time Temp Pulse Resp B/P (MAP) Pulse Ox O2 Delivery O2 Flow Rate FiO2 07/12/24 20:00 85 07/12/24 18:27 97.5 83 27 111/53 (72) 97 97.5 07/12/24 18:00 81 27 95 Room Air* 0 21 07/12/24 17:09 125/51 07/12/24 16:54 83 07/12/24 14:58 93 07/12/24 13:51 83 07/12/24 12:39 98.0 79 20 125/55 (78) 97 Lab Test 07/12/24 18:22 07/12/24 15:55 07/12/24 14:09 07/12/24 12:54 Range/Units Urine Color Yellow Yellow Urine Clarity Turbid H Clear Urine pH 5.5 5.0-9.0 Urine Specific [place] 1.017 1.001-1.035 Urine Protein 1+ H Negative Urine Ketones Negative Negative Urine Blood Negative Negative /uL Urine Nitrite Negative Negative Urine Bilirubin Negative Negative Urine Urobilinogen Normal Negative mg/dL Urine Leukocyte Esterase 3+ Negative /uL Urine RBC 5 0 - 4 /hpf Urine WBC 119 0 - 5 /hpf Urine WBC Clumps Present None Seen /hpf Urine Squamous Epithelial Cells Few <5 /hpf Urine Bacteria None seen None Seen /hpf Urine Hyaline Casts Few 0 - 2 /lpf Urine Mucus Few None Seen Urine Glucose Normal Normal mg/dL Troponin I High Sensitivity 86 *H 89 *H 88 *H </=34 ng/L White Blood Count 10.9 H 4.4-10.8 10^3/uL Red Blood Count 4.59 4.0-5.20 10^6/uL Hemoglobin 12.7 12.2-16.2 g/dL Hematocrit 38.5 36.0-46.0 % Mean Corpuscular Volume 83.7 80.0-100.0 fL Mean Corpuscular Hemoglobin 27.6 L 28.0-32.0 pg Mean Corpuscular Hemoglobin Concent 32.9 32.0-36.0 g/dL Red Cell Distribution Width 16.8 H 11.8-14.3 % Platelet Count 438 140-450 10^3/uL Mean Platelet Volume 8.8 6.9-10.8 fL Neutrophils (%) (Auto) 79.7 37.0-80.0 % Lymphocytes (%) (Auto) 10.2 10.0-50.0 % Monocytes (%) (Auto) 9.3 0.0-12.0 % Eosinophils (%) (Auto) 0.4 0.0-7.0 % Basophils (%) (Auto) 0.4 0.0-2.0 % Neutrophils # (Auto) 8.7 H 1.6-8.6 10 ^3/uL Lymphocytes # (Auto) 1.1 0.4-5.4 10 ^3/uL Monocytes # (Auto) 1.0 0-1.3 10 ^3/uL Eosinophils # (Auto) 0 0-0.8 10 ^3/uL Basophils # (Auto) 0 0-0.2 10 ^3/uL Nucleated Red Blood Cells 0.3 % Erythrocyte Sedimentation Rate 4 0-20 mm/hr Sodium Level 136 136-145 mmol/L Potassium Level 5.2 H 3.5-5.1 mmol/L Chloride Level 103 98-107 mmol/L Carbon Dioxide Level 26 20-31 mmol/L Anion Gap 7 5-15 Blood Urea Nitrogen 51 H 9-23 mg/dL Creatinine 1.37 H 0.550-1.02 mg/dL Glomerular Filtration Rate Calc 37 >90 mL/min BUN/Creatinine Ratio 37.2 H 10.0-20.0 Serum Glucose 81 74-106 mg/dL Calcium Level 9.9 8.7-10.4 mg/dL Total Bilirubin 1.7 H 0.2-1.0 mg/dL Aspartate Amino Transferase (AST) 410 H 13-40 U/L Alanine Aminotransferase (ALT) 507 H 7-40 U/L Alkaline Phosphatase 144 H 46-116 U/L C-Reactive Protein High Sensitivity 4.57 H <1.0 mg/dL B-Type Natriuretic Peptide > 5000.00 0-100 pg/mL Total Protein 6.4 5.7-8.2 g/dL Albumin 3.7 3.2-4.8 g/dL Current Medications Medications (Trade) Dose Ordered Sig/Yvonne Route Start Time Stop Time Status Last Admin Furosemide (Lasix Injection) 60 mg ONCE ONCE IV 07/12/24 14:45 07/12/24 15:24 DC 07/12/24 17:09 [place] [address] Ph: [phone] DIAGNOSTIC IMAGING Diagnostic Imaging Report : [id number] Signed PATIENT: ELO TRAMMELL ACCT: [id number] UNIT: [id number] : 1935 LOC: ER ROOM / BED: / AGE / SEX: 88 / F ADM STATUS: REG ER SERVICE 1239 ORDERING PHYSICIAN: FITZ HEAD DO PROCEDURE(s): BLDVT - BiLat Lower DVT REASON: feet swelling ORDER NUMBER(s): [id number], ACCESSION NUMBER(s): [id number] Bilateral lower extremity venous duplex Clinical History: feet swelling Comparison: None Technique: Duplex Doppler evaluation of the deep venous systems of both lower extremities from the common femoral veins to the popliteal veins including color Doppler and spectral/pulsed waveform analysis was performed. Findings: RIGHT SIDE: The common femoral vein demonstrates appropriate compressibility and waveform variability. There is compressibility/patency of the great saphenous vein at the proximal thigh. The femoral vein demonstrates appropriate compressibility and waveform variability. The deep femoral vein demonstrates appropriate compressibility and waveform variability. The popliteal vein demonstrates appropriate compressibility and waveform variability. There is normal compressibility at the tibioperoneal trunk. LEFT SIDE: The common femoral vein demonstrates appropriate compressibility and waveform variability. There is compressibility/patency of the great saphenous vein at the proximal thigh. The femoral vein demonstrates appropriate compressibility and waveform variability. The deep femoral vein demonstrates appropriate compressibility and waveform variability. The popliteal vein demonstrates appropriate compressibility and waveform variability. There is normal compressibility at the tibioperoneal trunk. Cystic structure is visualized in the left popliteal fossa measuring 1.7 x 0.7 x 1.8 cm. Impression: No right or left femoropopliteal venous thrombosis. ATED BY: BRANDY MUNIZ MD DICTATED DATE/TIME: 07/12/241356 SIGNED BY: BRANDY MUNIZ MD SIGNED DATE/TIME: 07/12/241356 CC: [place] [address] Ph: [phone] DIAGNOSTIC IMAGING Diagnostic Imaging Report : [id number] Signed PATIENT: ELO TRAMMELL ACCT: [id number] UNIT: [id number] : 1935 LOC: ER ROOM / BED: / AGE / SEX: 88 / F ADM STATUS: REG ER SERVICE 1238 ORDERING PHYSICIAN: FITZ HEAD DO PROCEDURE(s): CXRP - CHEST PORTABLE REASON: h/o copd ORDER NUMBER(s): [id number], ACCESSION NUMBER(s): [id number] CHEST RADIOGRAPH Indication:h/o copd Technique: Single frontal view of the chest was obtained COMPARISON: XY CHEST XRAY 1 VIEW on DOS: 12/22/23, XY CHEST PORTABLE on DOS: 12/20/23, CHEST PORTABLE on DOS: 07/14/22 FINDINGS: Lines and Tubes: None Lungs: Congestion. Pleura: Small bilateral pleural effusions. No pneumothorax. Cardiomediastinal contours: Unremarkable Bones: Unremarkable IMPRESSION: Small bilateral pleural effusions. Congestion. ATED BY: CARLIN CHADWICK MD DICTATED DATE/TIME: 07/12/241454 SIGNED BY: CARLIN CHADWICK MD SIGNED DATE/TIME: 07/12/241454 CC: Time of 1ST Reevaluation: 17:02 (The case was discussed with the cardiology team (HPI, physical exam, labs and diagnostic tests that were available at the time of disposition, ED course, treatment plan) on the phone. They reviewed the EKG. 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 Recommends admit to the hospital for CHF and rule out ACS. No further recommendations. Dr. Patrick) Reevaluation 1ST: Improved Consultation: Cardiology Patient Education/Counseling: Diagnosis, Treatment Family Education/Counseling: No Family Present Comments Patient presented with the above HPI.----leg swelling--workup was initiated. patient was found with the above mentioned diagnosis. Patient was given: Lasix. Patient ED course and VS have been stabilized. Patient has been reassessed in the ED and remained in a stable condition. Pertinent incidental findings were discussed with the patient and/or family. Patient/family voices understanding and is agreeable with plan. Patient has been observed in the ED adequate length of time to insure improvement/stability. Patient denies any chest pain or acute shortness of breath however she was found with elevated shortness of breath. Cardiology was consulted patient was admitted to the medicine team for further evaluation and treatment of their presentation. All the reports of any imaging studies that were ordered by myself were reviewed by myself. Departure 1 Departure Time of Disposition: 13:44 Impression: Primary Impression: Elevated troponin Additional Impressions: Leg swelling Elevated LFTs Disposition: ADMITTED INPATIENT Admit to: Tele Condition: Guarded Discharged With: Self Critical Care Note Critical Care Time?: Yes (35 min-critical care time only) I personally scribed for FITZ HEAD DO ([email or web address]) on 07/12/24 at 12:47. Electronically submitted by Estefany NOVOA). I personally scribed for FITZ HEAD DO ([email or web address]) on 07/12/24 at 13:00. Electronically submitted by Estefany Goldstein (CHARLIE). I personally scribed for FITZ HEAD DO ([email or web address]) on 07/12/24 at 14:03. Elect ronically submitted by Estefany Goldstein (CHARLIE). I personally scribed for FITZ HEAD DO ([email or web address]) on 07/12/24 at 16:13. E lectronically submitted by Estefany Goldstein (CHARLIE). I personally scribed for FITZ HEAD DO ([email or web address]) on 07/12/24 at 16:14. Electronically submitted by Estefany Goldstein (TALI). FITZ HEAD DO Jul 12, 2024 12:47
[2024-07-12 13:22] LABS: Basophils # (auto) 0 10 ^3/uL (0-0.2); Basophils % (auto) 0.4 % (0.0-2.0); Eosinophils # (auto) 0 10 ^3/uL (0-0.8); Eosinophils % (auto) 0.4 % (0.0-7.0); Hematocrit 38.5 % (36.0-46.0); Hemoglobin 12.7 g/dL (12.2-16.2); Lymphocytes # (auto) 1.1 10 ^3/uL (0.4-5.4); Lymphocytes % (auto) 10.2 % (10.0-50.0); Mean Corpuscular Hemoglobin 27.6 pg (28.0-32.0); Mean Corpuscular Hgb Conc. 32.9 g/dL (32.0-36.0); Mean Corpuscular Volume 83.7 fL (80.0-100.0); Monocytes % (auto) 9.3 % (0.0-12.0); Neutrophils # (auto) 8.7 10 ^3/uL (1.6-8.6); Neutrophils % (auto) 79.7 % (37.0-80.0); Nucleated Red Blood Cells % 0.3 %; Platelet Count (auto) 438 10^3/uL (140-450); Red Blood Cells 4.59 10^6/uL (4.0-5.20); Red Cell Distribution Width 16.8 % (11.8-14.3); White Blood Cell 10.9 10^3/uL (4.4-10.8)
[2024-07-12 13:52] LABS: Alanine Aminotransferase 507 U/L (7-40); Albumin 3.7 g/dL (3.2-4.8); Alkaline Phosphatase 144 U/L (46-116); Anion Gap 7 (5-15); Aspartate Aminotransferase 410 U/L (13-40); BUN/Creatinine Ratio 37.2 (10.0-20.0); Bilirubin, Total 1.7 mg/dL (0.2-1.0); Blood Urea Nitrogen 51 mg/dL (9-23); Calcium 9.9 mg/dL (8.7-10.4); Carbon Dioxide 26 mmol/L (20-31); Chloride 103 mmol/L (98-107); Glucose 81 mg/dL (74-106); Potassium 5.2 mmol/L (3.5-5.1); Sodium 136 mmol/L (136-145); Total Protein 6.4 g/dL (5.7-8.2)
--- NOTE | 2024-07-12 13:53 | ECG ---
[facility] Test Date: 2024-07-12 Test Time: 13:51:19 Pat Name: ELO TRAMMELL Department: ER Room: 0275T Gender: F [employer] Supervisor: GP : 1935 Requested By: FITZ HEAD Order Number: [id number] Reading MD: Reza Guy Measurements Intervals [place] Rate: 83 P: 100 CT: 209 QRS: 117 QRSD: 150 T: -57 QT: 418 QTc: 492 Interpretive Statements Right and left arm electrode reversal, interpretation assumes no reversal Sinus rhythm Nonspecific intraventricular conduction delay Lateral infarct, acute (LAD) Probable anteroseptal infarct, recent Electronically Signed On 07-14-2024 11:53:45 PST by Reza Guy Please click the below link to view image of tracing.
--- NOTE | 2024-07-12 13:58 | DVH ---
Bilateral lower extremity venous duplex Clinical History: feet swelling Comparison: None Technique: Duplex Doppler evaluation of the deep venous systems of both lower extremities from the common femora l veins to the popliteal veins including color Doppler and spectral/pulsed waveform analysis was perf ormed. Findings: RIGHT SIDE: The common femoral vein demonstrates appropriate compressibility and waveform variability. There is compressibility/patency of the great saphenous vein at the proximal thigh. The femoral vein demonstrates appropriate compressibility and waveform variability. The deep femoral vein demonstrates appropriate compressibility and waveform variability. The popliteal vein demonstrates appropriate compressibility and waveform variability. There is normal compressibility at the tibioperoneal trunk. LEFT SIDE: The common femoral vein demonstrates appropriate compressibility and waveform variability. There is compressibility/patency of the great saphenous vein at the proximal thigh. The femoral vein demonstrates appropriate compressibility and waveform variability. The deep femoral vein demonstrates appropriate compressibility and waveform variability. The popliteal vein demonstrates appropriate compressibility and waveform variability. There is normal compressibility at the tibioperoneal trunk. Cystic structure is visualized in the left popliteal fossa measuring 1.7 x 0.7 x 1.8 cm. Impression: No right or left femoropopliteal venous thrombosis.
[2024-07-12 14:02] LABS: CRP High Sensitivity 4.57 mg/dL (<1.0)
[2024-07-12 14:10] LABS: Erythrocyte Sedimentation Rate 4 mm/hr (0-20)
--- NOTE | 2024-07-12 14:58 | DVH ---
CHEST RADIOGRAPH Indication:h/o copd Technique: Single frontal view of the chest was obtained COMPARISON: XY CHEST XRAY 1 VIEW on DOS: 12/22/23, XY CHEST PORTABLE on DOS: 12/20/23, CHEST PORTABLE o n DOS: 07/14/22 FINDINGS: Lines and Tubes: None Lungs: Congestion. Pleura: Small bilateral pleural effusions. No pneumothorax. Cardiomediastinal contours: Unremarkable Bones: Unremarkable IMPRESSION: Small bilateral pleural effusions. Congestion.
[2024-07-12] MEDS: FUROSEMIDE 100 MG/10ML VIAL IV ONE (17:09)
[2024-07-12 18:00] VITALS: PULSE 81; RESP 27; O2SAT 95
[2024-07-12 18:23] LABS: Urine Bacteria None Seen /hpf (None Seen)
[2024-07-12 18:44] LABS: Urine Blood Negative /uL (Negative); Urine Clarity Turbid (Clear); Urine Color Yellow (Yellow); Urine Hyaline Cast FEW /lpf (0 - 2); Urine Mucus FEW (None Seen); Urine Protein, UAD 1+ (Negative); Urine Specific Gravity 1.017 (1.001-1.035); Urine Urobilinogen Normal (Negative); Urine WBC 119 /hpf (0 - 5); Urine WBC Clumps PRESENT /hpf (None Seen); Urine pH 5.5 (5.0-9.0)
[2024-07-12 20:00] VITALS: PULSE 91; RESP 22; O2SAT 96
--- NOTE | 2024-07-12 21:50 | DVHHPRES ---
History of Present Illness Resident Creating Document: MARIA DEL CARMEN COBB RESIDENT History of Present Illness This is a 88-year-old female with past medical history of colon cancer, RA, COPD, atrial fibrillation, hypertension, hyperlipidemia, peripheral arterial disease, chronic systolic heart failure presented to the ED with bilateral swelling of the legs for last 1 week prior to this admission. According to the patient bilateral leg swelling started 1 week ago getting worse and also painful that made it difficult for her to walk that prompted this visit. She denies chest pain, shortness of breath, dizziness, diaphoresis, abdominal pain, nausea, vomiting . The patient also mentioned intermittent constipation and using over the counter laxatives but did not mentioned any blood in stool or hematochezia. PCP: Dr. Vasquez Certified Prosthetist: Dr. Guy Past Medical History Colon cancer, RA, COPD, atrial fibrillation, hypertension, hyperlipidemia, p eripheral arterial disease, chronic systolic heart failure Past Surgical History Hysterectomy Family History: None Smoke: No ALCOHOL: none Drugs: None Lives: Alone Review of Systems Constitutional: No: Fever, Chills, Sweats, Weakness, Malaise, Other Eyes: No: Pain, Vision change, Conjunctivae inflammation, Eyelid inflammation, Other, Redness ENT: No: Ear pain, Ear discharge, Nose pain, Nose discharge, Nose congestion, Mouth pain, Mouth swelling, Throat pain, Throat swelling, Other Respiratory: No: Cough, Dry, Shortness of breath, SOB with excertion, Wheezing, Hemoptysis, Pleuritic Pain, Sputum, Wheezing, Other Cardiovascular: No: Chest Pain, Palpitations, Orthopnea, Paroxysmal Noc. Dyspnea, Edema, Lt Headedness, Other Genitourinary: No Dysuria, No Frequency, No Incontinence, No Hematuria, No Retention, No Other Musculoskeletal: leg pain; No: other, neck pain, shoulder pain, arm pain, back pain, hand pain, foot pain Skin: Bruising; No: Rash, Lesions, Jaundice, Other Neurological: No: Weakness, Numbness, Incoordination, Change in speech, Confusion, Seizures, Other Allergies: Coded Allergies: NO KNOWN ALLERGIES (Verified , 02/17/22) Exam Vital Signs Vital Signs Date Time Temp Pulse Resp B/P (MAP) Pulse Ox O2 Delivery O2 Flow Rate FiO2 07/12/24 20:00 85 07/12/24 18:27 97.5 27 111/53 (72) 97 97.5 07/12/24 18:00 Room Air* 0 21 Exam Physical examination: General Appearance: Alert, Oriented X3, Cooperative, No acute distress HEENT: Atraumatic, PERRLA, EOMI, Mucous membrane moist/pink Respiratory: Bilateral crackles in both lung coronado. Cardiovascular: Regular rate, Normal S1, Normal S2, No murmurs, no chest wall tenderness Abdominal: Normal bowel sounds, Soft, No tenderness, No hepatospenomegaly, No masses Extremities: Bilateral pedal edema +++, No clubbing, No cyanosis, Normal pulses, No tenderness/swelling Skin: No rashes, No breakdown, No significant lesion Neuro: Use walker, Normal speech, Strength at 5/5 X4 ext, Normal tone, Sensation intact, grossly intact cranial nerves. Psych/Mental Status: Mental status NL, Mood NL Labs/Xrays Labs Test 07/12/24 18:22 07/12/24 15:55 07/12/24 12:54 Range/Units Urine Color Yellow Yellow Urine Clarity Turbid H Clear Urine pH 5.5 5.0-9.0 Urine Specific Vivian 1.017 1.001-1.035 Urine Protein 1+ H Negative Urine Ketones Negative Negative Urine Blood Negative Negative /uL Urine Nitrite Negative Negative Urine Bilirubin Negative Negative Urine Urobilinogen Normal Negative mg/dL Urine Leukocyte Esterase 3+ Negative /uL Urine RBC 5 0 - 4 /hpf Urine WBC 119 0 - 5 /hpf Urine WBC Clumps Present None Seen /hpf Urine Squamous Epithelial Cells Few <5 /hpf Urine Bacteria None seen None Seen /hpf Urine Hyaline Casts Few 0 - 2 /lpf Urine Mucus Few None Seen Urine Glucose Normal Normal mg/dL Troponin I High Sensitivity 86 *H </=34 ng/L White Blood Count 10.9 H 4.4-10.8 10^3/uL Red Blood Count 4.59 4.0-5.20 10^6/uL Hemoglobin 12.7 12.2-16.2 g/dL Hematocrit 38.5 36.0-46.0 % Mean Corpuscular Volume 83.7 80.0-100.0 fL Mean Corpuscular Hemoglobin 27.6 L 28.0-32.0 pg Mean Corpuscular Hemoglobin Concent 32.9 32.0-36.0 g/dL Red Cell Distribution Width 16.8 H 11.8-14.3 % Platelet Count 438 140-450 10^3/uL Mean Platelet Volume 8.8 6.9-10.8 fL Neutrophils (%) (Auto) 79.7 37.0-80.0 % Lymphocytes (%) (Auto) 10.2 10.0-50.0 % Monocytes (%) (Auto) 9.3 0.0-12.0 % Eosinophils (%) (Auto) 0.4 0.0-7.0 % Basophils (%) (Auto) 0.4 0.0-2.0 % Neutrophils # (Auto) 8.7 H 1.6-8.6 10 ^3/uL Lymphocytes # (Auto) 1.1 0.4-5.4 10 ^3/uL Monocytes # (Auto) 1.0 0-1.3 10 ^3/uL Eosinophils # (Auto) 0 0-0.8 10 ^3/uL Basophils # (Auto) 0 0-0.2 10 ^3/uL Nucleated Red Blood Cells 0.3 % Erythrocyte Sedimentation Rate 4 0-20 mm/hr Sodium Level 136 136-145 mmol/L Potassium Level 5.2 H 3.5-5.1 mmol/L Chloride Level 103 98-107 mmol/L Carbon Dioxide Level 26 20-31 mmol/L Anion Gap 7 5-15 Blood Urea Nitrogen 51 H 9-23 mg/dL Creatinine 1.37 H 0.550-1.02 mg/dL Glomerular Filtration Rate Calc 37 >90 mL/min BUN/Creatinine Ratio 37.2 H 10.0-20.0 Serum Glucose 81 74-106 mg/dL Calcium Level 9.9 8.7-10.4 mg/dL Total Bilirubin 1.7 H 0.2-1.0 mg/dL Aspartate Amino Transferase (AST) 410 H 13-40 U/L Alanine Aminotransferase (ALT) 507 H 7-40 U/L Alkaline Phosphatase 144 H 46-116 U/L C-Reactive Protein High Sensitivity 4.57 H <1.0 mg/dL B-Type Natriuretic Peptide > 5000.00 0-100 pg/mL Total Protein 6.4 5.7-8.2 g/dL Albumin 3.7 3.2-4.8 g/dL Assessment/Plan Assessment/Plan Assessment and plan: # Acute exacerbation of chronic systolic heart failure - BNP is more than 5000 - Chest x-ray revealed cardiomegaly with pulmonary vascular congestion and mild bilateral pleural effusion - Lasix IV 40 mg b.i.d. - Echo on 12/2023 revealed ejection fraction 25% - Continue spironolactone 25 mg p.o. daily - Hold Entresto because of the RACIEL - Continue metoprolol XL 25 mg daily # RACIEL likely due to hemodynamically mediated/VMN - Monitor BMP # NSTEMI type 2 secondary to above - Troponin trends are 88>89>86 # Hyperbilirubinemia with transaminitis likely due to hepatobiliary obstruction/ metastasis of colon cancer - Ordered CT abdomen pelvis without contrast, hepatitis panel, coagulation profile, CEA, CA 125 - Monitor CMP # Acute cystitis - UA is consistent with UTI - Ordered urine C/S - IV ceftriaxone 1 g daily # Hyperkalemia - Hyperkalemia protocol management - Monitor BMP # Atrial fibrillation with secondary hypercoagulable state ; currently in sinus rhythm with controlled rate - [id number] - Continue eloquis 2.5 mg b.i.d. # History of rheumatoid arthritis - CRP is elevated - Continue hydroxychloroquine 200 mg p.o. daily # DVT prophylaxis - Patient is on Eliquis Goal of care discussed with the patient for more than 20 minutes full code Plan of treatment discussed with Dr. Payton Plan discussed with: Patient, Other MARIA DEL CARMEN COBB RESIDENT Jul 12, 2024 21:50
[2024-07-12] MEDS ORDERED: ONDANSETRON HCL 4 MG/2 ML VIAL IV PRN (22:00)
[2024-07-12] MEDS ORDERED: HYDROcodone-ACET 5/325MG TAB PO PRN (22:00)
[2024-07-12] MEDS ORDERED: NITROGLYCERIN 0.4 MG SL TAB SL PRN (22:00)
[2024-07-12] MEDS ORDERED: MORPHINE SULFATE INJ 2 MG/ml SYRG IV PRN (22:00)
[2024-07-12] MEDS ORDERED: ACETAMINOPHEN 325 MG TAB PO PRN (22:00)
[2024-07-12] MEDS: SODIUM CHLOR 0.9% PF (SALINE LOCK) 10ML VIAL/SYR IV SCH (22:21)
[2024-07-12] MEDS: DEXTROSE (50%) 50ML SYRG IV ONE (22:46)
[2024-07-12] MEDS: SODIUM BICARB 8.4% 50Meq/50ml SYR INJ IV ONE (22:46)
[2024-07-12] MEDS: ALBUTEROL SULF 2.5 MG/0.5ML(0.5%) NEB SOLN NEB ONE (22:46)
[2024-07-12] MEDS: InsuLIN REG 1unit/0.01ml Soln (100units/ml) IV ONE (23:00)
[2024-07-12] MEDS: FUROSEMIDE 20 MG/2 ML VIAL IV ONE (23:01)
[2024-07-13] VITALS (10 sets, daily range): BP systolic 92–124; BP diastolic 48–69; PULSE 74–94; RESP 16–18; TEMP 97.4–98.6; O2SAT 93–99
[2024-07-13] MEDS ORDERED: FUROSEMIDE 40 MG/4 ML VIAL IV SCH ×2 (01:00→06:00)
[2024-07-13] MEDS: FUROSEMIDE 40 MG/4 ML VIAL IV SCH (01:30)
[2024-07-13] MEDS: SODIUM ZIRCONIUM CYCL 10 GM PAK PO SCH (02:03)
[2024-07-13 05:45] LABS: Basophils # (auto) 0.1 10 ^3/uL (0-0.2); Basophils % (auto) 0.6 % (0.0-2.0); Eosinophils # (auto) 0 10 ^3/uL (0-0.8); Eosinophils % (auto) 0.3 % (0.0-7.0); Hematocrit 37.9 % (36.0-46.0); Hemoglobin 12.3 g/dL (12.2-16.2); Lymphocytes % (auto) 8.5 % (10.0-50.0); Mean Corpuscular Hemoglobin 27.1 pg (28.0-32.0); Mean Corpuscular Hgb Conc. 32.5 g/dL (32.0-36.0); Mean Corpuscular Volume 83.4 fL (80.0-100.0); Monocytes # (auto) 1.2 10 ^3/uL (0-1.3); Monocytes % (auto) 9.8 % (0.0-12.0); Neutrophils # (auto) 9.6 10 ^3/uL (1.6-8.6); Neutrophils % (auto) 80.8 % (37.0-80.0); Nucleated Red Blood Cells % 0.1 %; Platelet Count (auto) 415 10^3/uL (140-450); Red Blood Cells 4.55 10^6/uL (4.0-5.20); Red Cell Distribution Width 16.3 % (11.8-14.3); White Blood Cell 11.9 10^3/uL (4.4-10.8)
--- NOTE | 2024-07-13 05:48 | DVH ---
Exam: CT CT AB PEL WO CON-NO ORAL OR IV History: Abdominal pain Comparison Study: None available at time of dictation. TECHNIQUE: Multidetector CT of the abdomen and pelvis was performed from lung bases to ischial tubero sities. Imaging was performed without IV contrast using axial images. Coronal and sagittal reformats were obtained from the axial data set by the technologist. Radiation Dose Information: CT Dose: CTDI volume is [CTDIvol] mGy. Dose-length product is 256.06 mGy*cm FINDINGS: Evaluation of solid organs is limited due to lack of intravenous contrast use. Findings: Lung Bases: Bibasilar atelectasis. Small bilateral pleural effusions. Normal heart size. Cardiomega ly. Liver: The liver is normal in size. No focal lesions. Gallbladder and Biliary Tree: Gallbladder is contracted and there is wall thickening. Spleen: Unremarkable Pancreas: The pancreas is grossly normal in appearance. Adrenal Glands: Unremarkable Kidneys: Kidneys are grossly normal without calculi or hydronephrosis. Bilateral renal cysts. GI Tract: The stomach is grossly normal in appearance. The small bowel is normal in caliber. Diffuse stool throughout colon. Surgical anastomosis in the ascending colon. Appendix not visualized, howeve r no acute inflammatory changes in the right lower quadrant. Peritoneal cavity: No pneumoperitoneum. Trace ascites. Lymphadenopathy: No mesenteric, retroperitoneal or periportal lymphadenopathy. Abdominal Wall and Mesentery: Unremarkable. Vasculature: 2.6 cm infrarenal abdominal aortic aneurysm. Pelvic Organs: Unremarkable Urinary Bladder: Grossly unremarkable for degree of distention. Musculoskeletal: No aggressive focal bony lesions, acute fractures or dislocation. Multilevel lumbar spondylosis. Soft tissues: Diffuse body wall anasarca. IMPRESSION: 1. Gallbladder wall thickening. Right upper quadrant ultrasound recommended for further evaluation. 2. Diffuse stool throughout colon may represent constipation in the appropriate clinical setting. 3. Body wall anasarca. 4. 2.6 cm infrarenal abdominal aortic aneurysm. 5. Bibasilar opacities and trace effusions. Radiation optimization: All CT scans at this facility use at least one of these dose optimization beatriz hniques: automated exposure control mA and/or kV adjustment per patient size (includes targeted exam s where dose is matched to clinical indication) or iterative reconstruction.
[2024-07-13] MEDS ORDERED: SODIUM ZIRCONIUM CYCL 10 GM PAK PO SCH (06:00)
[2024-07-13 06:05] LABS: Alanine Aminotransferase 453 U/L (7-40); Albumin 3.6 g/dL (3.2-4.8); Alkaline Phosphatase 144 U/L (46-116); Anion Gap 7 (5-15); Aspartate Aminotransferase 326 U/L (13-40); BUN/Creatinine Ratio 30.2 (10.0-20.0); Bilirubin, Total 1.5 mg/dL (0.2-1.0); Blood Urea Nitrogen 45 mg/dL (9-23); Calcium 9.9 mg/dL (8.7-10.4); Carbon Dioxide 28 mmol/L (20-31); Chloride 101 mmol/L (98-107); Glucose 68 mg/dL (74-106); Sodium 136 mmol/L (136-145); Total Protein 6.4 g/dL (5.7-8.2)
[2024-07-13] MEDS: cefTRIAXone 1GM/50ML D5W 50 ML IV SCH (09:10)
[2024-07-13] MEDS: SPIRONOLACTONE 25 MG TAB PO SCH (09:11)
[2024-07-13] MEDS: METOPROLOL SUCCINATE XL 50 MG TAB PO SCH (09:11)
[2024-07-13] MEDS: hydrOXYchloroQUINE SULFATE 200 MG TAB PO SCH (09:11)
[2024-07-13] MEDS: APIXABAN 2.5 MG TAB PO SCH (09:11)
[2024-07-13] MEDS: ASPirin 81 mg TAB PO SCH (09:12)
--- NOTE | 2024-07-13 09:30 | ECG ---
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
--- NOTE | 2024-07-13 09:53 | DVH ---
ULTRASOUND ABDOMEN limited INDICATION: Pain. TECHNIQUE: Multiple real-time sonographic images of the abdomen were obtained. COMPARISON: None FINDINGS: The visualized liver parenchyma appears homogenous . The liver measures 13.5 cm. No discrete hep atic lesion or intrahepatic biliary ductal dilatation is identified. Partially visualized is right pleural effusion. Gallbladder appears contracted. There is no sonographic evidence of cholelithiasis or pericholecystic fluid. The common biliary duct is not dilated. The right kidney measures 8.9 cm length. The left kidney measures 8.2 cm. No sonographic evidenc e of nephrolithiasis or hydronephrosis. Pancreas is obscured by bowel gas. Visualized abdominal aorta appears within normal limits. IMPRESSION: 1. The gallbladder appears contracted. There is no sonographic evidence of cholelithiasis. 2. Partially visualized is right pleural effusion. HS:Y
--- NOTE | 2024-07-13 10:51 | ECG ---
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
--- NOTE | 2024-07-13 16:33 | DVHINCON2 ---
Date Seen: Jul 13, [address] Mccloud Reason for Consultation CHF History of Present Illness Ariana Steward is a 88-year-old female patient who presents to the ER referred by urgent care with complaint of bilateral lower limb edema and difficulty walking due to this edema. She recently was evaluated ER due to head trauma after mechanical fall with no loss of consciousness due to bilateral lower limb edema in polyneuropathy. Denies chest pain, dyspnea, palpitation, syncope, nausea, vomiting, diarrhea, bleeding, dysuria, Past medical history: Hypertension, dyslipidemia, systolic congestive heart failure (HFrEF, LVEF 25% on echocardiogram of 12/2023) patient is not on optimal medical therapy at this time (only has spironolactone and metoprolol) due to hyperkalemia and CKD, paroxysmal atrial fibrillation (chads Vasc 6/has bled 3) on apixaban with adjusted dose, PAD status post multiple stent placements (in and 2021), bilateral polyneuropathy. Colon cancer, Chronic right shoulder pain, COPD with no oxygen requirement, rheumatoid arthritis, recent head trauma due to mechanical fall with no loss of consciousness (patient tripped because of bilateral lower limb edema and polyneuropathy). Surgical history: Coronary angiography in 2018 which showed moderate lesion in the mid LAD, rest of arteries were without disease. Peripheral angiogram requiring stent placement and bilateral femoral arteries, in 2017 and 2021., hysterectomy Family history: Father with ND at age of 52, grandfather had sudden at age F 60, brother ND at age 42. Social history: [facility], is helped by sister who is a neighbor. Uses a walker to mobilize drip, since last admission due to mechanical fall has been on a wheelchair. She using ex tobacco smoker (37 pack- year history of smoking). Denies current tobacco, alcohol and other drug abuse. Allergies: Denies Home medication: MiraLax, Nitrostat, Eliquis 2.5 mg p.o. b.i.d., pantoprazole 40 mg p.o. daily, spironolactone 25 mg p.o. daily, ipratropium, nebulization, gabapentin 100 mg p.o. b.i.d., Trelegy, albuterol, aspirin 81 mg p.o. daily, atorvastatin 40 mg p.o. daily disease clopidogrel was discontinued), hydrox ychloroquine 200 mg p.o. daily, metoprolol 25 mg p.o. daily, mirtazapine PCP: Dr Villeags Search Coordinator: Dr Guy Patient seen and examined at bedside. Patient currently feels better, leg swelling has resolved. Past Medical History Per HPI Past Surgical History Per HPI Family History: Cardiovascular disease G8 FATHER G8 SISTER Colon cancer G8 MOTHER Ischemic heart disease G8 FATHER G8 SISTER Malignant neoplasm of breast AUNT Family History Per HPI Social History Per HPI Allergies: Coded Allergies: NO KNOWN ALLERGIES (Verified , 02/17/22) Home Meds Active Scripts Pantoprazole Sodium Sesquihydr (Pantoprazole Sodium) 40 Mg Tab, 40 MG PO DAILY for 30 Days, #30 TAB Prov:RAY DOWLING [facility] [place] 12/23/23 Apixaban Base (ELIQUIS) 2.5 Mg Tab, 2.5 MG PO BID for 30 Days, #60 TAB Prov:RAY DOWLING [facility] [place] 12/23/23 Sacubitril-Valsartan (Entresto 24-26 mg) 1 Tab Tab, 0.5 TAB PO BID for 30 Days, #30 TAB Prov:RAY DOWLING [facility] [place] 12/23/23 Potassium Chloride (POTASSIUM CHLORIDE CR) 10 Meq Tb, 10 MEQ PO DAILY for 15 Days, #15 TAB Prov:RAY DOWLING [facility] [place] 12/23/23 Furosemide (Furosemide) 40 Mg Tab, 40 MG PO DAILY for 30 Days, #30 TAB Prov:RAY DOWLING [facility] [place] 12/23/23 Spironolactone (Spironolactone) 25 Mg Tab, 1 TAB PO DAILY for 30 Days, #30 TAB 1 Refill Prov:RAY DOWLING [facility] [place] 12/23/23 Albuterol Sulfate (VENTOLIN MDI) 90 Mcg Ih, 90 MCG IN Q8HPRN PRN for 30 Days, #5 INH Prov:BABS FRANKS MD 05/15/21 Reported Medications Clopidogrel Bisulfate (CLOPIDOGREL) 75 Mg Tab, 1 TAB PO DAILY 12/20/23 Lorazepam (Ativan) 0.5 Mg Tab, 0.5 MG PO DAILY, TAB 01/13/23 Docusate Sodium (Docusate Sodium) 100 Mg Tab, 100 MG PO DAILY, TAB 01/13/23 Hydroxychloroquine Sulfate (Hydroxychloroquine Sulfat) 200 Mg Tab, 1 TAB PO DAILY for RHEUMATOID ARTHRITIS 02/17/22 Valsartan-Hydrochlorothiazide (VALSARTAN/HYDROCHLOROTHIA) 1 Tab Tab, 1 TAB PO QAM for HTN, TAB 02/17/22 [place]-3 Fatty Acids (FISH OIL) 1,000 Mg Cap, 1000 MG PO HS for SUPPLEMENT, CAP 02/17/22 Calcium Citrate-Vitamin D (Calcitrate/Vitamin D) Vit D Tab, 1 D PO HS for SUPPLEMENT, TAB 02/17/22 B Complex W/ C (B-Complex Plus Vitamin C) 1 Tab Tab, 1 TAB PO HS for SUPPLEMENT, TAB 02/17/22 Metoprolol Succinate (Metoprolol Succinate Er) 25 Mg Tab, 1 TAB PO DAILY, #30 TAB 0 Refills 01/05/21 Multiple Vitamin (Multivitamins) Cap, 1 CAP PO DAILY, #30 CAP 0 Refills 01/05/21 Clonidine Hydrochloride (Clonidine Hcl) 0.1 Mg Tab, 0.1 MG PO PRN for 30 Days, MG 11/03/17 Folic Acid (Folic Acid) 800 Mcg Cap, 800 MCG PO DAILY, CAP 09/21/17 Cholecalciferol (Gnp Vitamin D) 1,000 Unit Tab, 1 TAB PO DAILY, #30 TAB 5 Refills 09/21/17 Aspirin (Aspir-Low) 81 Mg Tab, 81 MG PO DAILY for 30 Days, MG 09/21/17 Potassium Chloride (Klor-Con M20) 20 Meq Tab, 1 TAB PO BID 09/21/17 Methotrexate (Methotrexate) 2.5 Mg Tab, 7 TAB PO QWEEKLY, MG 09/21/17 Atorvastatin Calcium (ATORVASTATIN CALCIUM) 40 Mg Tab, 40 MG PO HS, TAB 02/18/16 Current Medications Current Medications Medications (Trade) Dose Ordered Sig/Yvonne Route PRN Reason Start Time Stop Time Status Last Admin Sodium Chloride (Saline Lock Ns) 10 ml Q8HR IV 07/12/24 22:00 07/13/24 14:00 Acetaminophen (Tylenol Tablet) 325 mg Q4HP PRN PO MILD PAIN (1-3 PAIN SCALE) 07/12/24 22:00 Hold Acetaminophen/ Hydrocodone Bitart ([place] 5/325MG Tab) 1 tab Q4HP PRN PO MODERATE PAIN (4-6 PAIN SCALE) 07/12/24 22:00 Ondansetron HCl (Zofran) 4 mg Q4HP PRN IV NAUSEA / VOMITING 07/12/24 22:00 Nitroglycerin (Ntrostat Sublingual) 0.4 mg Q5MINP PRN SL FOR CHEST PAIN 07/12/24 22:00 Morphine Sulfate 2 mg Q30M PRN IV FOR CHEST PAIN 07/12/24 22:00 Furosemide (Lasix Injection) 40 mg BIDD IV 07/13/24 06:00 07/13/24 00:52 DC Zirconium Oxide (Lokelma) 10 gm TID PO 07/13/24 06:00 07/13/24 00:52 DC Metoprolol Succinate (Toprol Xl) 25 mg DAILY PO 07/13/24 10:00 07/13/24 09:11 Furosemide (Lasix Injection) 60 mg BIDD IV 07/13/24 01:00 07/13/24 01:31 DC Zirconium Oxide (Lokelma) 10 gm DAILY PO 07/13/24 01:00 07/17/24 10:01 07/13/24 02:03 Apixaban (Eliquis) 2.5 mg BID PO 07/13/24 10:00 07/13/24 09:11 Hydroxychloroquine Sulfate (Plaquenil Tablet) 200 mg DAILY PO 07/13/24 10:00 07/13/24 09:11 Spironolactone (Aldactone) 25 mg DAILY PO 07/13/24 10:00 07/13/24 09:11 Patient Own Medication 40 mg HS PO 07/13/24 22:00 07/13/24 01:04 DC Aspirin 81 mg DAILY PO 07/13/24 10:00 07/13/24 09:12 Atorvastatin Calcium (Lipitor) 40 mg HS PO 07/13/24 22:00 Future Hold Ceftriaxone Sodium 50 ml @ 100 mls/hr DAILY@09 IV 07/13/24 09:00 07/13/24 09:10 Furosemide (Lasix Injection) 40 mg BIDD IV 07/13/24 01:30 07/13/24 05:42 Review of Systems Per HPI Vital Signs Vital Signs Date Time Temp Pulse Resp B/P (MAP) Pulse Ox O2 Delivery O2 Flow Rate FiO2 07/13/24 13:11 98.0 80 16 100/56 (71) 96 98.0 07/13/24 08:00 Room Air* 0 21 Physical Exam Patient lying in bed, in no acute distress General: Lucid, cachectic, afebrile, mucosae are moist Cardiovascular: Normal S1 and S2. No murmurs, gallops or rubs Respiratory: Normal ventilation mechanics. Clear lung sounds on auscultation Abdomen: Soft, nontender, no organomegaly, normal bowel sounds MSK/skin: Mobilizes 4 limbs. Skin is dry and warm Neurological: Oriented in 3 spheres. No motor no sensitive deficits. Pupils are isocoric and reactive Labs/Diagnostic Data Labs Test 07/13/24 05:07 07/12/24 18:22 07/12/24 15:55 07/12/24 12:54 Range/Units White Blood Count 11.9 H 4.4-10.8 10^3/uL Red Blood Count 4.55 4.0-5.20 10^6/uL Hemoglobin 12.3 12.2-16.2 g/dL Hematocrit 37.9 36.0-46.0 % Mean Corpuscular Volume 83.4 80.0-100.0 fL Mean Corpuscular Hemoglobin 27.1 L 28.0-32.0 pg Mean Corpuscular Hemoglobin Concent 32.5 32.0-36.0 g/dL Red Cell Distribution Width 16.3 H 11.8-14.3 % Platelet Count 415 140-450 10^3/uL Mean Platelet Volume 8.8 6.9-10.8 fL Neutrophils (%) (Auto) 80.8 H 37.0-80.0 % Lymphocytes (%) (Auto) 8.5 L 10.0-50.0 % Monocytes (%) (Auto) 9.8 0.0-12.0 % Eosinophils (%) (Auto) 0.3 0.0-7.0 % Basophils (%) (Auto) 0.6 0.0-2.0 % Neutrophils # (Auto) 9.6 H 1.6-8.6 10 ^3/uL Lymphocytes # (Auto) 1.0 0.4-5.4 10 ^3/uL Monocytes # (Auto) 1.2 0-1.3 10 ^3/uL Eosinophils # (Auto) 0 0-0.8 10 ^3/uL Basophils # (Auto) 0.1 0-0.2 10 ^3/uL Nucleated Red Blood Cells 0.1 % Sodium Level 136 136-145 mmol/L Potassium Level 4.0 3.5-5.1 mmol/L Chloride Level 101 98-107 mmol/L Carbon Dioxide Level 28 20-31 mmol/L Anion Gap 7 5-15 Blood Urea Nitrogen 45 H 9-23 mg/dL Creatinine 1.49 H 0.550-1.02 mg/dL Glomerular Filtration Rate Calc 34 >90 mL/min BUN/Creatinine Ratio 30.2 H 10.0-20.0 Serum Glucose 68 L 74-106 mg/dL Calcium Level 9.9 8.7-10.4 mg/dL Total Bilirubin 1.5 H 0.2-1.0 mg/dL Aspartate Amino Transferase (AST) 326 H 13-40 U/L Alanine Aminotransferase (ALT) 453 H 7-40 U/L Alkaline Phosphatase 144 H 46-116 U/L Total Protein 6.4 5.7-8.2 g/dL Albumin 3.6 3.2-4.8 g/dL Carcinoembryonic Antigen 2.77 <=5.0 ng/mL Urine Color Yellow Yellow Urine Clarity Turbid H Clear Urine pH 5.5 5.0-9.0 Urine Specific Daniel 1.017 1.001-1.035 Urine Protein 1+ H Negative Urine Ketones Negative Negative Urine Blood Negative Negative /uL Urine Nitrite Negative Negative Urine Bilirubin Negative Negative Urine Urobilinogen Normal Negative mg/dL Urine Leukocyte Esterase 3+ Negative /uL Urine RBC 5 0 - 4 /hpf Urine WBC 119 0 - 5 /hpf Urine WBC Clumps Present None Seen /hpf Urine Squamous Epithelial Cells Few <5 /hpf Urine Bacteria None seen None Seen /hpf Urine Hyaline Casts Few 0 - 2 /lpf Urine Mucus Few None Seen Urine Glucose Normal Normal mg/dL Troponin I High Sensitivity 86 *H </=34 ng/L Erythrocyte Sedimentation Rate 4 0-20 mm/hr Hemoglobin A1c 5.6 <5.7 % A1C C-Reactive Protein High Sensitivity 4.57 H <1.0 mg/dL B-Type Natriuretic Peptide > 5000.00 0-100 pg/mL Assessment Acute on chronic systolic congestive heart failure (HFrEF, LVEF 25% on echocardiogram of 12/2023) Paroxysmal atrial fibrillation (chads Vasc 6/has bled 3) secondary hypercoagulability state Peripheral artery disease - status post multiple stent placements CKD Hyperkalemia History of colon cancer COPD with no exacerbation Rheumatoid arthritis History of moderate coronary artery disease (last coronary angiography 2018 which showed moderate lesion in mid LAD, rest of arteries with no significant lesions) Plan/Recommendation Patient has fluid overload has resolved. Recommend furosemide 20 mg p.o. daily. Suggest optimizing medical therapy with GDM T (currently is only on spironolactone and metoprolol). Per patient her PCP removed Entresto, probably secondary to hyperkalemia or CKD. Recommend adding empagliflozin, evaluate k idney function and potassium tomorrow in evaluate adding EMILI inhibitors/ARB/ARNI. Pending new echocardiogram Completed abdomen CT which showed body wall anasarca, and 2.6 cm infrarenal abdominal aortic aneurysm. Chest x-ray showed congestion and pleural effusion. Optimize loading conditions. Continue with apixaban at an adjusted dose due to kidney function, weight and age Discussed plan with Dr. Gomez, patient and nurses: Recommend at this time p.o. diuretics, adjust GDM T evaluating serum potassium and creatinine level. Added empagliflozin, pending EMILI inhibitor/ARB/ARNI. Pending new echocardiogram at this time. Plan discussed with: Patient, Other (Nurses) Date of Service: Jul 13, 2024 Billing Provider: PETER GOMEZ MD Cardiology Common Codes: [id number] INP/OBS CARE (High), [id number] CARE 30-74 MIN SYDNI DEAL RESIDENT Jul 13, 2024 16:33
--- NOTE | 2024-07-13 16:50 | DVHSR ---
APPROVED REPORT EXAM: Two-dimensional and M-mode echocardiogram with Doppler and color Doppler. Blood Pressure: 124/67 mmHg INDICATION Heart Failure RISK FACTORS Height: 5'2", Weight: 101 DIMENSIONS LVDd4.4 (3.8-5.7cm)LA (2D)4.5 (1.9-4.0cm)Aortic Root3.4 (2.0-3.7cm) LVDs3.9 (2.5-4.0cm)LA (MM) (1.9-4.0cm)Aortic Cusp Exc1.6 (1.5-2.0cm) EF (%) 27.0 (55-70%)Rt. Atrium4.8 (1.9-4.0cm)Asc. Aorta3.1 cm IVSd1.1 (0.7-1.1cm)RV (D)3.3 (1.8-2.4cm) PWd0.9 (0.7-1.1cm) Mitral Valve MitralMitral Stenosis E wave0.93m/sMV Mean GR.mmHg E/A ratio0.02D MVAcm2 Aortic Valve Aortic ValveAortic Stenosis V10.71m/Irena Mean GR.2mmHg V20.78m/Irena Peak GR.2mmHg LVOT Diameter1.9 (1.8-2.4cm)Doppler AVA2.58cm2 AI P 1/2 Dhrh181.94ms Pulmonic Valve V20.49m/s Tricuspid Valve TR Velocity1.83m/s [id number] Other Information Quality : Technically LimitedRhythm : Technically limited study due to body habitus. Conclusion Severely dilated left ventricle. Severely reduced left ventricular systolic function with estimated ejection fraction 25% in a global fashion. Patient is in atrial fibrillation Moderately dilated right ventricular moderately reduced right ventricular systolic function. Moderately dilated right atrium. Borderline dilated left atrium. There is mild aortic valve sclerosis. There is mild aortic valve regurgitation. There is [id number] tricuspid valve regurgitation. There is mild mitral valve regurgitation. The pulmonary valve is grossly normal. No significant pericardial effusion.
[2024-07-13 17:05] LABS: INR 1.86 (0.9-1.15); Partial Thromboplastin Time 32.6 SEC (24.5-34.5); Prothrombin Time 18.8 sec (9.3-11.8)
[2024-07-13 17:17] LABS: Magnesium 1.9 mg/dL (1.6-2.6)
[2024-07-13 17:19] LABS: Phosphorus 2.4 mg/dL (2.4-5.1)
--- NOTE | 2024-07-13 19:42 | DVHPNRES ---
Progress Note Date Seen: Jul 13, 2024 Resident Creating Document: ARLEN RODRIGUEZ Has the PT tested + for MRSA If YES, has PT been informed?: No Medical Necessity Reason Pt with a Central, PICC or Fol: No Subjective Review of Systems This is an 88-year-old female with a past medical history of colon cancer, RA, COPD, atrial fibrillation, hypertension, hyperlipidemia, peripheral arterial disease, and systolic heart failure who presented to the ED with bilateral swelling of the legs for the last week prior to this admission. According to the patient, bilateral leg swelling started 1 week ago and has been getting worse, which is associated with pain during walking. The patient also complained of exertional shortness of breath and constipation for which she uses MiraLax. She denies chest pain, shortness of breath, dizziness, diaphoresis, abdominal pain, nausea, and vomiting. PCP: Dr. Vasquez Contact Center Assistant: Dr. Guy PMHx: Colon cancer (status post surgery, 2010), systolic heart failure, RA, COPD, atrial fibrillation, hypertension, hyperlipidemia, peripheral arterial disease (status post stent), history of UTI 1 month ago PSHx: Hysterectomy (1994, due to heavy bleeding) Family history: Significant for early coronary artery disease in father and brother Social history: Lives alone, uses a walker for mobility, ex-smoker with a 25 pack-year history, denies any other drug use Home medication: Apixaban, aspirin, atorvastatin, vitamin D supplement, MiraLax, metoprolol, pantoprazole, spironolactone 25 mg, hydroxychloroquine Allergic history: Noncontributory Physical examination is significant for bilateral lower limb pedal edema (grade 2), senile purpura, and petechial rash with scratching coker. There are diffuse bilateral crackles on chest auscultation. Otherwise, the physical examination is unremarkable. Lab studies are significant for raised WBC at 11.9, potassium at 5.2, creatinine at 1.37, elevated LFTs with AST 40, ALT 507, bilirubin 1.7, troponin I raised at 88, [place] [address], and urinalysis shows UTI picture. Otherwise, lab studies are unremarkable. On chest X-ray, there is bilateral small pleural effusion with blunting of the angles. Bilateral lower limb Doppler ultrasound is normal. Abdominal pelvic CT shows gallbladder wall thickening with body wall anasarca and an incidental finding of an abdominal aortic aneurysm of 2.6 cm. Liver ultrasound shows a contracted gallbladder with no sonographic evidence of cholelithiasis. The patient was admitted to the hospital for volume overload due to systolic heart failure. Injection Lasix 40 mg IV b.i.d., injection ceftriaxone, and her home medications were resumed. On 07/13/2024, the patient was seen and examined at the bedside. The patient is feeling well since admission. Her pedal edema has improved. Patient reports: No new complaints, Feels better Changes from previous H/P or p: Changes Objective vital signs Vital Sign Date Time Temp Pulse Resp B/P (MAP) Pulse Ox O2 Delivery O2 Flow Rate FiO2 07/13/24 16:44 98.6 92 16 92/61 (71) 98 98.6 07/13/24 08:00 Room Air* 0 21 Total Intake and Output 07/12/24 07/12/24 07/13/24 15:00 23:00 07:00 Intake Total 300 ml Balance 300 ml medications Current Medications Medications Dose Ordered Sig/Yvonne Route Start Time Stop Time Status Last Admin Dose Admin Sodium Chloride 10 ml Q8HR IV 07/12/24 22:00 07/13/24 14:00 10 ML Acetaminophen 325 mg Q4HP PRN PO 07/12/24 22:00 Hold Acetaminophen/ Hydrocodone Bitart 1 tab Q4HP PRN PO 07/12/24 22:00 Ondansetron HCl 4 mg Q4HP PRN IV 07/12/24 22:00 Nitroglycerin 0.4 mg Q5MINP PRN SL 07/12/24 22:00 Morphine Sulfate 2 mg Q30M PRN IV 07/12/24 22:00 Metoprolol Succinate 25 mg DAILY PO 07/13/24 10:00 07/13/24 09:11 25 MG Zirconium Oxide 10 gm DAILY PO 07/13/24 01:00 07/17/24 10:01 07/13/24 02:03 10 GM Apixaban 2.5 mg BID PO 07/13/24 10:00 07/13/24 09:11 2.5 MG Hydroxychloroquine Sulfate 200 mg DAILY PO 07/13/24 10:00 07/13/24 09:11 200 MG Spironolactone 25 mg DAILY PO 07/13/24 10:00 07/13/24 09:11 25 MG Aspirin 81 mg DAILY PO 07/13/24 10:00 07/13/24 09:12 81 MG Atorvastatin Calcium 40 mg HS PO 07/13/24 22:00 Future Hold Ceftriaxone Sodium 50 ml @ 100 mls/hr DAILY@09 IV 07/13/24 09:00 07/13/24 09:10 100 MLS/HR Furosemide 20 mg DAILY PO 07/14/24 10:00 Examination General Appearance: Alert, Oriented X3, Cooperative, No acute distress HEENT: Atraumatic, PERRLA, EOMI, Mucous membrane moist/pink Respiratory: Clear to auscultation, Normal air movement Cardiovascular: Regular rate, Normal S1, Normal S2, No murmurs, no chest wall tenderness Abdominal: Normal bowel sounds, Soft, No tenderness, No hepatospenomegaly, No masses Extremities: No clubbing, No cyanosis, No edema, Normal pulses, No tenderness/swelling Skin: Bilateral lower limb senile purpura, petechial rashes with scratching coker laboratory and microbiology Laboratory Tests 07/13/24 05:07 Test 07/13/24 05:07 Range/Units Serum Glucose 68 L 74-106 mg/dL Labs and/or images reviewed: Labs reviewed by me, Image(s) reviewed by me Problem List/Assessment/Plan Problem List/Assessment/Plan Acute on chronic systolic congestive heart failure Volume overload, likely due to CHF Bilateral small pleural effusion, likely due to volume overload secondary to CHF Bilateral lower limb pedal edema, grade 3 during admission, improving BNP is more than 5000 Chest x-ray shows bilateral small pleural effusion Echocardiogram shows, Severely dilated left ventricle. Severely reduced left ventricular systolic function with estimated ejection fraction 25% in a global fashion Cardiology on board, recommended to decrease Lasix to 20 mg p.o. daily Continue spironolactone 25 mg daily Peripheral artery disease, status post stent Continue atorvastatin RACIEL on CKD grade 3A (based on records from 06/02/24), likely hemodynamically mediated Creatinine is raised 1.37, up trending Check FENa Hyperkalemia Improved Discontinue Lokelma History of colon cancer, status post surgery 2010 In remission, follow up on outpatient basis NSTEMI, likely type 2 Trop I is mildly raised, downtrending Cardiology on board COPD with no exacerbation Breathing treatment p.r.n. Transaminitis, likely hemodynamically mediated Liver ultrasound shows contracted gallbladder with no sonographic evidence of cholelithiasis Hepatitis panel Monitoring Rheumatoid arthritis Continue hydroxychloroquine Abdominal aortic aneurysm, infrarenal, 2.[address] scan finding Follow up on outpatient basis Chronic atrial fibrillation Yann Vasc score is 6 Continue Eliquis 2.5 mg b.i.d. UTI, unspecified location Urinalysis shows UTI picture Ceftriaxone Urine culture DVT prophylaxis On Eliquis Stress ulcer prevention Protonix Code status Full Code Case discussed with Dr. Payton Plan discussed with: Patient, Other (On) My Orders My Orders Orders - ARLEN RODRIGUEZ Procedure Category Date Status Time LIVER US 07/13/24 Resulted 09:05 * Cardiology Consult CONS 07/13/24 Transmitted 15:20 ARLEN RODRIGUEZ Jul 13, 2024 19:42
[2024-07-13] MEDS ORDERED: PATIENTS OWN MEDICATION (Atorvastatin Calcium 40 MG) PO SCH (22:00)
[2024-07-13] MEDS ORDERED: ATORVASTATIN 20 MG TAB PO SCH (22:00)
[2024-07-14] VITALS (14 sets, daily range): BP systolic 105–112; BP diastolic 52–64; PULSE 82–124; RESP 16–22; TEMP 97.4–97.9; O2SAT 93–100
[2024-07-14 06:46] LABS: Basophils # (auto) 0 10 ^3/uL (0-0.2); Eosinophils # (auto) 0.1 10 ^3/uL (0-0.8); Eosinophils % (auto) 0.8 % (0.0-7.0); Hemoglobin 12.4 g/dL (12.2-16.2); Lymphocytes # (auto) 1.1 10 ^3/uL (0.4-5.4)
[2024-07-14 06:49] LABS: Basophils % (auto) 0.3 % (0.0-2.0); Lymphocytes % (auto) 11.3 % (10.0-50.0); Mean Corpuscular Hgb Conc. 32.6 g/dL (32.0-36.0); Mean Corpuscular Volume 82.9 fL (80.0-100.0); Monocytes # (auto) 0.9 10 ^3/uL (0-1.3); Monocytes % (auto) 9.1 % (0.0-12.0); Neutrophils % (auto) 78.5 % (37.0-80.0); Nucleated Red Blood Cells % 0.2 %; Platelet Count (auto) 390 10^3/uL (140-450); Red Blood Cells 4.59 10^6/uL (4.0-5.20); Red Cell Distribution Width 16.3 % (11.8-14.3); White Blood Cell 10.1 10^3/uL (4.4-10.8)
[2024-07-14 06:58] LABS: Alanine Aminotransferase 459 U/L (7-40); Alkaline Phosphatase 132 U/L (46-116); Calcium 9.3 mg/dL (8.7-10.4); Carbon Dioxide 29 mmol/L (20-31); Chloride 100 mmol/L (98-107)
[2024-07-14 06:59] LABS: Albumin 3.4 g/dL (3.2-4.8); Anion Gap 5 (5-15); Aspartate Aminotransferase 363 U/L (13-40); Bilirubin, Total 1.1 mg/dL (0.2-1.0); Blood Urea Nitrogen 42 mg/dL (9-23); Glucose 110 mg/dL (74-106); Potassium 4.2 mmol/L (3.5-5.1); Sodium 134 mmol/L (136-145); Total Protein 5.9 g/dL (5.7-8.2)
--- NOTE | 2024-07-14 08:50 | DVHPNRES ---
Progress Note Date Seen: Jul 14, 2024 Resident Creating Document: SYDNI DEAL RESIDENT Has the PT tested + for MRSA If YES, has PT been informed?: No Medical Necessity Reason Pt with a Central, PICC or Fol: No Subjective Review of Systems Ariana Steward is a 88-year-old female patient who presents to the ER referred by urgent care with complaint of bilateral lower limb edema and difficulty walking due to this edema. She recently was evaluated in the ER due to head trauma after mechanical fall with no loss of consciousness due to bilateral lower limb edema and bilateral feet numbness due to polyneuropathy. Denies chest pain, dyspnea, palpitation, syncope, nausea, vomiting, diarrhea, bleeding, dysuria, Past medical history: Hypertension, dyslipidemia, systolic congestive heart failure (HFrEF, LVEF 25% on echocardiogram of 12/2023) patient is not on optimal medical therapy at this time (only has spironolactone and metoprolol) due to hyperkalemia and CKD, paroxysmal atrial fibrillation (chads Vasc 6/has bled 3) on apixaban with adjusted dose, PAD status post multiple stent placements (in 2017 and 2021), bilateral polyneuropathy. Colon cancer, Chronic right shoulder pain, COPD with no oxygen requirement, rheumatoid arthritis, recent head trauma due to mechanical fall with no loss of consciousness (patient tripped because of bilateral lower limb edema and polyneuropathy). Surgical history: Coronary angiography in 2018 which showed moderate lesion in the mid LAD, rest of arteries were without disease. Peripheral angiogram requiring stent placement and bilateral femoral arteries, in 2017 and 2021., hysterectomy Family history: Father with DC at age of 52, grandfather had sudden at age F 60, brother DC at age 42. Social history: [facility], is helped by sister who is a neighbor. Uses a walker to mobilize drip, since last admission due to mechanical fall has been on a wheelchair. She using ex tobacco smoker (37 pack- year history of smoking). Denies current tobacco, alcohol and other drug abuse. Allergies: Denies Home medication: MiraLax, Nitrostat, Eliquis 2.5 mg p.o. b.i.d., pantoprazole 40 mg p.o. daily, spironolactone 25 mg p.o. daily, ipratropium, nebulization, gabapentin 100 mg p.o. b.i.d., Trelegy, albuterol, aspirin 81 mg p.o. daily, atorvastatin 40 mg p.o. daily (clopidogrel was discontinued), hydroxychloroquine 200 mg p.o. daily, metoprolol 25 mg p.o. daily, mirtazapine PCP: Dr Villegas Aircraft Body Repairer: Dr Guy Patient seen and examined at bedside. Patient currently feels better, leg swelling has resolved. Objective vital signs Vital Sign Date Time Temp Pulse Resp B/P (MAP) Pulse Ox O2 Delivery O2 Flow Rate FiO2 07/14/24 05:00 97.8 104 18 105/64 (78) 93 97.8 07/13/24 20:06 Room Air* 0 21 Total Intake and Output 07/13/24 07/13/24 07/14/24 15:00 23:00 07:00 Intake Total 50 ml 600 ml 400 ml Balance 50 ml 600 ml 400 ml medications Current Medications Medications Dose Ordered Sig/Yvonne Route Start Time Stop Time Status Last Admin Dose Admin Sodium Chloride 10 ml Q8HR IV 07/12/24 22:00 07/14/24 06:33 10 ML Acetaminophen 325 mg Q4HP PRN PO 07/12/24 22:00 Hold Acetaminophen/ Hydrocodone Bitart 1 tab Q4HP PRN PO 07/12/24 22:00 Ondansetron HCl 4 mg Q4HP PRN IV 07/12/24 22:00 Nitroglycerin 0.4 mg Q5MINP PRN SL 07/12/24 22:00 Morphine Sulfate 2 mg Q30M PRN IV 07/12/24 22:00 Metoprolol Succinate 25 mg DAILY PO 07/13/24 10:00 07/13/24 09:11 25 MG Zirconium Oxide 10 gm DAILY PO 07/13/24 01:00 07/17/24 10:01 07/13/24 02:03 10 GM Apixaban 2.5 mg BID PO 07/13/24 10:00 07/13/24 21:11 2.5 MG Hydroxychloroquine Sulfate 200 mg DAILY PO 07/13/24 10:00 07/13/24 09:11 200 MG Spironolactone 25 mg DAILY PO 07/13/24 10:00 07/13/24 09:11 25 MG Aspirin 81 mg DAILY PO 07/13/24 10:00 07/13/24 09:12 81 MG Atorvastatin Calcium 40 mg HS PO 07/13/24 22:00 Hold Ceftriaxone Sodium 50 ml @ 100 mls/hr DAILY@09 IV 07/13/24 09:00 07/13/24 09:10 100 MLS/HR Furosemide 20 mg DAILY PO 07/14/24 10:00 Empaglifozin 10 mg DAILY PO 07/14/24 10:00 UNV Examination Patient lying in bed, in no acute distress General: Lucid, cachectic, afebrile, mucosae are moist Cardiovascular: Normal S1 and S2. No murmurs, gallops or rubs Respiratory: Normal ventilation mechanics. Clear lung sounds on auscultation Abdomen: Soft, nontender, no organomegaly, normal bowel sounds MSK/skin: Mobilizes 4 limbs. Skin is dry and warm Neurological: Oriented in 3 spheres. No motor no sensitive deficits. Pupils are isocoric and reactive laboratory and microbiology Laboratory Tests 07/14/24 06:09 Test 07/14/24 06:09 Range/Units Serum Glucose 110 H 74-106 mg/dL Problem List/Assessment/Plan Problem List/Assessment/Plan Assessment Acute on chronic systolic congestive heart failure (HFrEF, LVEF 25% on echocardiogram of 12/2023) Paroxysmal atrial fibrillation (chads Vasc 6/has bled 3) secondary hypercoagulability state Transaminitis NSTEMI probable type 2 Peripheral artery disease - status post multiple stent placements CKD Hyperkalemia History of colon cancer - status post op COPD with no exacerbation Rheumatoid arthritis History of moderate coronary artery disease (last coronary angiography 2017 which showed moderate lesion in mid LAD, rest of arteries with no significant lesions) Plan/Recommendation Patients fluid overload has resolved. Recommend furosemide 20 mg p.o. daily. Suggest optimizing medical therapy with GDM T: Discussed treatment with Dr. Marta de leon (certified pediatric nurse practitioner as outpatient) recommends switching spironolactone to Entresto, continue with metoprolol and empagliflozin. Extensively discussed with patient life vest and ICD, not indicated at this point. Recommend optimizing nutrition due to frail status, ordered GI consult for G-tube placement and nutrition. Echocardiogram: Severely dilated LV, LVEF 25%, moderately dilated RV, with moderately reduced RV systolic function, [id number] TR Completed abdomen CT which showed body wall anasarca, and 2.6 cm infrarenal abdominal aortic aneurysm. Chest x-ray showed congestion and pleural effusion. Optimize loading conditions. Hold atorvastatin and Tylenol due to transaminitis. Continue with apixaban at an adjusted dose due to kidney function, weight and age Discussed plan with Dr. Gomez, Dr Guy, patient and nurses: Recommend at this time p.o. diuretics, adjust GDMT evaluating serum potassium and creatinine level. No life vest/ICD placement indicated at this point. GI consult appreciated for eventual G-tube placement for nutrition. Plan discussed with: Patient, Other (Nurses) My Orders My Orders Orders - SYDNI DEAL Procedure Category Date Status Time Drug Screen LAB 07/13/24 Logged 15:40 Furosemide Tablet PHA 07/14/24 In Process (Lasix Tablet) 10:00 Empagliflozin PHA 07/14/24 In Process (Jardiance) 10:00 Visit Coding Cardiology RES Date of Service: Jul 14, 2024 Billing Provider: PETER GOMEZ MD Cardiology Common Codes: [id number] HOSP CARE(High, [id number] CARE 30-74 MIN SYDNI DEAL RESIDENT Jul 14, 2024 08:50
[2024-07-14 08:56] LABS: Hepatitis B Surface Antigen Negative (Negative)
[2024-07-14] MEDS: FUROSEMIDE 20 MG TAB PO SCH (09:09)
[2024-07-14] MEDS: EMPAGLIFLOZIN 10 MG TAB PO SCH (09:10)
[2024-07-14 09:13] LABS: Hepatitis B Core Total AB Negative (Negative)
[2024-07-14 09:18] LABS: Hepatitis A Ab IgM Negative; Hepatitis B Core IgM Negative
[2024-07-14 09:19] LABS: Hepatitis C Antibody Negative (Negative)
[2024-07-14 11:35] LABS: Hepatitis A Total Antibody Negative (Negative); Hepatitis B Surface Antibody Negative (Negative); Hepatitis B Surface Antigen Negative (Negative); Hepatitis C Antibody Negative (Negative)
[2024-07-14] MEDS: IPRATROPIUM BROM 0.5 MG/2.5ML INH SOL NEB SCH ×2 (12:41→18:48)
[2024-07-14] MEDS: ALBUTEROL SULF 2.5 MG/0.5ML(0.5%) NEB SOLN NEB SCH ×2 (12:41→18:48)
[2024-07-14] MEDS ORDERED: MIRT1TAB38 PO (16:45)
[2024-07-14] MEDS ORDERED: FLUT1AER3 IN (16:45)
[2024-07-14] MEDS: BUDESONIDE (INHALATION) 0.5 MG/2 ML NEB NEB SCH (18:48)
--- NOTE | 2024-07-14 20:49 | DVHPNRES ---
Progress Note Date Seen: Jul 14, 2024 Resident Creating Document: ARLEN RODRIGUEZ SIRI Has the PT tested + for MRSA If YES, has PT been informed?: No Medical Necessity Reason Pt with a Central, PICC or Fol: No Subjective Review of Systems Patient seen and examined at the bedside. Patient is feeling better since admission. The patient's bilateral pedal edema and pain has improved. At the patient LFT still deranged and for the possible cause atorvastatin and Tylenol was stopped. Patient reports: No new complaints, Feels better Changes from previous H/P or p: Changes Objective vital signs Vital Sign Date Time Temp Pulse Resp B/P (MAP) Pulse Ox O2 Delivery O2 Flow Rate FiO2 07/14/24 19:00 101 20 99 07/14/24 18:48 Room Air 0.0 07/14/24 18:48 21 07/14/24 17:10 97.8 112/56 (74) 97.8 Total Intake and Output 07/13/24 07/13/24 07/14/24 15:00 23:00 07:00 Intake Total 50 ml 600 ml 400 ml Balance 50 ml 600 ml 400 ml medications Current Medications Medications Dose Ordered Sig/Yvonne Route Start Time Stop Time Status Last Admin Dose Admin Sodium Chloride 10 ml Q8HR IV 07/12/24 22:00 07/14/24 14:05 10 ML Acetaminophen/ Hydrocodone Bitart 1 tab Q4HP PRN PO 07/12/24 22:00 Ondansetron HCl 4 mg Q4HP PRN IV 07/12/24 22:00 Nitroglycerin 0.4 mg Q5MINP PRN SL 07/12/24 22:00 Morphine Sulfate 2 mg Q30M PRN IV 07/12/24 22:00 Metoprolol Succinate 25 mg DAILY PO 07/13/24 10:00 07/14/24 09:10 25 MG Apixaban 2.5 mg BID PO 07/13/24 10:00 07/14/24 09:08 2.5 MG Hydroxychloroquine Sulfate 200 mg DAILY PO 07/13/24 10:00 07/14/24 09:08 200 MG Aspirin 81 mg DAILY PO 07/13/24 10:00 07/14/24 09:10 81 MG Ceftriaxone Sodium 50 ml @ 100 mls/hr DAILY@ IV 07/13/24 09:00 07/14/24 09:08 100 MLS/HR Furosemide 20 mg DAILY PO 07/14/24 10:00 07/14/24 09:09 20 MG Empaglifozin 10 mg DAILY PO 07/14/24 10:00 07/14/24 09:10 10 MG Albuterol 2.5 mg Q6HR NEB 07/14/24 18:00 07/14/24 18:48 2.5 MG Ipratropium [place] 0.5 mg Q6HR NEB 07/14/24 18:00 07/14/24 18:48 0.5 MG Budesonide 0.5 mg BID NEB 07/14/24 22:00 07/14/24 18:48 0.5 MG Sacubitril/ Valsartan 0.5 tab BID PO 07/14/24 22:00 Examination General Appearance: Alert, Oriented X3, Cooperative, No acute distress HEENT: Atraumatic, PERRLA, EOMI, Mucous membrane moist/pink Respiratory: Clear to auscultation, Normal air movement Cardiovascular: Regular rate, Normal S1, Normal S2, No murmurs, no chest wall tenderness Abdominal: Normal bowel sounds, Soft, No tenderness, No hepatospenomegaly, No masses Extremities: No clubbing, No cyanosis, No edema, Normal pulses, No tenderness/swelling Skin: Bilateral lower limb senile purpura, petechial rashes with scratching coker laboratory and microbiology Laboratory Tests 07/14/24 06:09 Test 07/14/24 06:09 Range/Units Serum Glucose 110 H 74-106 mg/dL Microbiology Date/Time Source Procedure Growth Status 07/13/24 06:00 Voided Urine Urine Culture - Preliminary Resulted Labs and/or images reviewed: Labs reviewed by me, Image(s) reviewed by me Problem List/Assessment/Plan Problem List/Assessment/Plan Acute on chronic systolic congestive heart failure Volume overload, likely due to CHF Bilateral small pleural effusion, likely due to volume overload secondary to CHF Bilateral lower limb pedal edema, grade 3 during admission, improving BNP is more than 5000 Chest x-ray shows bilateral small pleural effusion Echocardiogram shows, Severely dilated left ventricle. Severely reduced left ventricular systolic function with estimated ejection fraction 25% in a global fashion Cardiology on board, recommended to decrease Lasix to 20 mg p.o. daily, also consulted regarding the requirement of LifeVest and ICD, recommended at the moment it is not indicated Continue spironolactone 25 mg daily Cardiology has recommended GI evaluation for the possible malnutrition and G tube recommendation Peripheral artery disease, status post stent Discontinue atorvastatin, due to raised HD RACIEL on CKD grade 3A (based on records from 06/02/24), likely hemodynamically mediated Creatinine is raised 1.37, up trending Check FENa Hyperkalemia Improved Discontinue Lokelma History of colon cancer, status post surgery 2010 In remission, follow up on outpatient basis NSTEMI, likely type 2 Trop I is mildly raised, downtrending Cardiology on board COPD with no exacerbation Breathing treatment q.6 hours Budesonide inhalation b.i.d. Transaminitis, likely hemodynamically mediated Liver ultrasound shows contracted gallbladder with no sonographic evidence of cholelithiasis Hepatitis panel Stopped atorvastatin and Tylenol Rheumatoid arthritis Continue hydroxychloroquine Abdominal aortic aneurysm, infrarenal, 2.[address] scan finding Follow up on outpatient basis Chronic atrial fibrillation Yann Vasc score is 6 Continue Eliquis 2.5 mg b.i.d. Mild hyponatremia Monitoring UTI, unspecified location Urinalysis shows UTI picture Ceftriaxone Urine culture DVT prophylaxis On Eliquis Stress ulcer prevention Protonix Code status Full Code Case discussed with Dr. Payton Plan discussed with: Patient, Son, Other (RN) ARLEN RODRIGUEZ Jul 14, 2024 20:49
[2024-07-14] MEDS ORDERED: BUDESONIDE (INHALATION) 0.5 MG/2 ML NEB NEB SCH (22:00)
[2024-07-14] MEDS: SACUBITRIL-VALSARTAN 24mg/26mg TAB PO SCH (22:18)
[2024-07-15] VITALS (18 sets, daily range): BP systolic 101–123; BP diastolic 41–69; PULSE 67–122; RESP 17–81; TEMP 97.5–98.4; O2SAT 93–100
[2024-07-15 06:26] LABS: Alanine Aminotransferase 448 U/L (7-40); Albumin 3.2 g/dL (3.2-4.8); Alkaline Phosphatase 127 U/L (46-116); Anion Gap 9 (5-15); Aspartate Aminotransferase 339 U/L (13-40); BUN/Creatinine Ratio 32.2 (10.0-20.0); Blood Urea Nitrogen 46 mg/dL (9-23); Calcium 9.5 mg/dL (8.7-10.4); Carbon Dioxide 26 mmol/L (20-31); Chloride 98 mmol/L (98-107); Glucose 88 mg/dL (74-106); Potassium 3.8 mmol/L (3.5-5.1); Sodium 133 mmol/L (136-145)
[2024-07-15 06:27] LABS: Bilirubin, Total 1.3 mg/dL (0.2-1.0); Total Protein 5.7 g/dL (5.7-8.2)
--- NOTE | 2024-07-15 09:47 | DVHPNRES ---
Progress Note Date Seen: Jul 15, 2024 Resident Creating Document: SYDNI DEAL RESIDENT Has the PT tested + for MRSA If YES, has PT been informed?: No Medical Necessity Reason Pt with a Central, PICC or Fol: No Subjective Review of Systems Ariana Steward is a 88-year-old female patient who presents to the ER referred by urgent care with complaint of bilateral lower limb edema and difficulty walking due to this edema. She recently was evaluated in the ER due to head trauma after mechanical fall with no loss of consciousness due to bilateral lower limb edema and bilateral feet numbness due to polyneuropathy. Denies chest pain, dyspnea, palpitation, syncope, nausea, vomiting, diarrhea, bleeding, dysuria, Past medical history: Hypertension, dyslipidemia, systolic congestive heart failure (HFrEF, LVEF 25% on echocardiogram of 12/2023) patient is not on optimal medical therapy at this time (only has spironolactone and metoprolol) due to hyperkalemia and CKD, paroxysmal atrial fibrillation (chads Vasc 6/has bled 3) on apixaban with adjusted dose, PAD status post multiple stent placements (in 2017 and 2021), bilateral polyneuropathy. Colon cancer, Chronic right shoulder pain, COPD with no oxygen requirement, rheumatoid arthritis, recent head trauma due to mechanical fall with no loss of consciousness (patient tripped because of bilateral lower limb edema and polyneuropathy). Surgical history: Coronary angiography in 2018 which showed moderate lesion in the mid LAD, rest of arteries were without disease. Peripheral angiogram requiring stent placement and bilateral femoral arteries, in 2017 and 2021., hysterectomy Family history: Father with TX at age of 52, grandfather had sudden at age F 60, brother [place] at age 42. Social history: Lives in [facility] alone, is helped by sister who is a neighbor. Uses a walker to mobilize drip, since last admission due to mechanical fall has been on a wheelchair. She using ex tobacco smoker (37 pack- year history of smoking). Denies current tobacco, alcohol and other drug abuse. Allergies: Denies Home medication: MiraLax, Nitrostat, Eliquis 2.5 mg p.o. b.i.d., pantoprazole 40 mg p.o. daily, spironolactone 25 mg p.o. daily, ipratropium, nebulization, gabapentin 100 mg p.o. b.i.d., Trelegy, albuterol, aspirin 81 mg p.o. daily, atorvastatin 40 mg p.o. daily (clopidogrel was discontinued), hydroxychloroquine 200 mg p.o. daily, metoprolol 25 mg p.o. daily, mirtazapine PCP: Dr Villegas Transmission And Coordination Engineer: Dr Guy Patient seen and examined at bedside. Patient currently feels better, leg swelling has resolved. Objective vital signs Vital Sign Date Time Temp Pulse Resp B/P (MAP) Pulse Ox O2 Delivery O2 Flow Rate FiO2 07/15/24 09:31 123/69 07/15/24 09:30 90 07/15/24 08:27 98.0 17 95 98.0 07/15/24 06:35 Room Air 07/15/24 06:35 0 21 Total Intake and Output 07/14/24 07/14/24 07/15/24 15:00 23:00 07:00 Intake Total 620 ml 200 ml Output Total 900 ml Balance -280 ml 200 ml medications Current Medications Medications Dose Ordered Sig/Yvonne Route Start Time Stop Time Status Last Admin Dose Admin Sodium Chloride 10 ml Q8HR IV 07/12/24 22:00 07/15/24 06:07 10 ML Acetaminophen/ Hydrocodone Bitart 1 tab Q4HP PRN PO 07/12/24 22:00 Ondansetron HCl 4 mg Q4HP PRN IV 07/12/24 22:00 Nitroglycerin 0.4 mg Q5MINP PRN SL 07/12/24 22:00 Morphine Sulfate 2 mg Q30M PRN IV 07/12/24 22:00 Metoprolol Succinate 25 mg DAILY PO 07/13/24 10:00 07/15/24 09:30 25 MG Apixaban 2.5 mg BID PO 07/13/24 10:00 07/15/24 09:29 2.5 MG Hydroxychloroquine Sulfate 200 mg DAILY PO 07/13/24 10:00 07/15/24 09:29 200 MG Aspirin 81 mg DAILY PO 07/13/24 10:00 07/15/24 09:29 81 MG Ceftriaxone Sodium 50 ml @ 100 mls/hr DAILY@09 IV 07/13/24 09:00 07/15/24 09:29 100 MLS/HR Furosemide 20 mg DAILY PO 07/14/24 10:00 07/15/24 09:31 20 MG Empaglifozin 10 mg DAILY PO 07/14/24 10:00 07/15/24 09:29 10 MG Albuterol 2.5 mg Q6HR NEB 07/14/24 18:00 07/15/24 06:35 2.5 MG Ipratropium [place] 0.5 mg Q6HR NEB 07/14/24 18:00 07/15/24 06:35 0.5 MG Budesonide 0.5 mg BID NEB 07/14/24 22:00 07/15/24 06:35 0.5 MG Sacubitril/ Valsartan 0.5 tab BID PO 07/14/24 22:00 07/15/24 09:30 0.5 TAB Examination Patient lying in bed, in no acute distress General: Lucid, cachectic, afebrile, mucosae are moist Cardiovascular: Normal S1 and S2. No murmurs, gallops or rubs Respiratory: Normal ventilation mechanics. Clear lung sounds on auscultation Abdomen: Soft, nontender, no organomegaly, normal bowel sounds MSK/skin: Mobilizes 4 limbs. Skin is dry and warm Neurological: Oriented in 3 spheres. No motor no sensitive deficits. Pupils are isocoric and reactive laboratory and microbiology Laboratory Tests 07/15/24 05:18 07/14/24 06:09 Test 07/15/24 05:18 Range/Units Serum Glucose 88 74-106 mg/dL Microbiology Date/Time Source Procedure Growth Status 07/13/24 06:00 Voided Urine Urine Culture - Preliminary Resulted Problem List/Assessment/Plan Problem List/Assessment/Plan Assessment Acute on chronic systolic congestive heart failure (HFrEF, LVEF 25% on echocardiogram of 12/2023) Paroxysmal atrial fibrillation (chads Vasc 6/has bled 3) secondary hypercoagulability state Transaminitis NSTEMI probable type 2 Peripheral artery disease - status post multiple stent placements CKD Hyperkalemia History of colon cancer - status post op COPD with no exacerbation Rheumatoid arthritis History of moderate coronary artery disease (last coronary angiography 2017 which showed moderate lesion in mid LAD, rest of arteries with no significant lesions) Plan/Recommendation Patients fluid overload has resolved. Recommend furosemide 20 mg p.o. daily. Suggest optimizing medical therapy with GDM T: Discussed treatment with Dr. Guy (automatic transmission mechanic as outpatient) recommends switching spironolactone to Entresto, continue with metoprolol and empagliflozin. Extensively discussed with patient life vest and ICD, not indicated at this point. Recommend optimizing nutrition due to frail status, ordered GI consult for G-tube placement and nutrition. Patient refused G-tube placement at this time and prefers being discharged. Echocardiogram: Severely dilated LV, LVEF 25%, moderately dilated RV, with moderately reduced RV systolic function, [id number] TR Completed abdomen CT which showed body wall anasarca, and 2.6 cm infrarenal abdominal aortic aneurysm. Chest x-ray showed congestion and pleural effusion. Optimize loading conditions. Hold atorvastatin and Tylenol due to transaminitis. Continue with apixaban at an adjusted dose due to kidney function, weight and age Discussed plan with Dr. Gomez, Dr Guy, patient and nurses: Recommend at this time p.o. diuretics, adjust GDMT evaluating serum potassium and creatinine level. No life vest/ICD placement indicated at this point (patient refused and also patient's life expectancy). Patient prefers no G-tube placement, and wants to be discharged. Has GI counseled arranged as outpatient. No further cardiological workup needed during this admission. We will sign off of case. Please reconsult if needed, thank you. Plan discussed with: Patient, Son, Other My Orders My Orders Orders - SYDNI DEAL Procedure Category Date Status Time Sacubitril-Valsartan PHA 07/14/24 In Process (Entresto 24-26 Mg 22:00 * [facility] Sports Physiotherapist CONS 07/15/24 Transmitted 05:41 Visit Coding Cardiology RES Date of Service: Jul 15, 2024 Billing Provider: PETER GOMEZ MD Cardiology Common Codes: 46346-JDI/OBS SAME DATE (High), 61420-[id number] CARE- EACH +30MIN SYDNI DEAL RESIDENT Jul 15, 2024 09:47
--- NOTE | 2024-07-15 13:05 | MEDREC ---
[facility] Intervention Section I [facility] Intervention: Review courses of therapy (URINE CULTURE RESULTED IN ENTEROCOCCUS FAECALIS. PLEASE CONSIDER SWITCHING ANTIBIOTIC) ROLAND NORIEGA Jul 15, 2024 13:05
--- NOTE | 2024-07-15 13:24 | DVHINCON2 ---
GI Consult Consult Note GI consult note Date of Consultation: 07/15/2024 Chief Complaint: Evaluate G-tube placement for malnutrition Referring Physician: H&P: 88-year-old female admitted with bilateral swelling of legs for one-week No abdominal pain. No nausea or vomiting. No dysphagia Patient admits to decreased appetite, has lost about 40 lb in one year, per son at bedside No melena or red blood in stool History of colon cancer DATE OF OPERATION: 01/14/23 PROCEDURE: Colonoscopy with biopsy. PREOPERATIVE INDICATION: The patient is a 87 -year-old female undergoing colonoscopy for personal history of colon cancer and colon polyps undergoing surveillance and constipation POSTOPERATIVE DIAGNOSES: 1. Mild to moderate sigmoid fixation and mild to moderate tortuosity of the colon 2. There were 2 diminutive benign-appearing rectal polyps that were seen removed by cold biopsy forceps 3. Otherwise complete and normal colonoscopy examination up to the ileocolonic anastomosis Past Medical History: Colon cancer, RA, COPD, atrial fibrillation, hypertension, hyperlipidemia, peripheral arterial disease, chronic systolic heart failure Past Surgical History: Hysterectomy Social History: NO smoking, drinking ETOH and use of illegal drugs. Family History: Noncontributory Review of Systems: Constitutional: no fever, chill, weight loss HEENT: no eye pain, no hearing loss, no oral lesion, no scleral icterus Heart: no chest pain, no chest pressure Lung: no cough, no dyspnea with exertion Abdomen: see HPI Physical exam: General: NAD, AAOX3 Chest: lung coronado clear to auscultation Heart: RRR, no murmur Abdomen: non-distended, no tenderness to palpation, +BS Labs: Labs Test 07/15/24 05:18 07/14/24 06:09 07/13/24 21:42 07/13/24 16:30 Range/Units Sodium Level 133 L 136-145 mmol/L Potassium Level 3.8 3.5-5.1 mmol/L Chloride Level 98 98-107 mmol/L Carbon Dioxide Level 26 20-31 mmol/L Anion Gap 9 5-15 Blood Urea Nitrogen 46 H 9-23 mg/dL Creatinine 1.43 H 0.550-1.02 mg/dL Glomerular Filtration Rate Calc 36 >90 mL/min BUN/Creatinine Ratio 32.2 H 10.0-20.0 Serum Glucose 88 74-106 mg/dL Calcium Level 9.5 8.7-10.4 mg/dL Total Bilirubin 1.3 H 0.2-1.0 mg/dL Aspartate Amino Transferase (AST) 339 H 13-40 U/L Alanine Aminotransferase (ALT) 448 H 7-40 U/L Alkaline Phosphatase 127 H 46-116 U/L Total Protein 5.7 5.7-8.2 g/dL Albumin 3.2 3.2-4.8 g/dL White Blood Count 10.1 4.4-10.8 10^3/uL Red Blood Count 4.59 4.0-5.20 10^6/uL Hemoglobin 12.4 12.2-16.2 g/dL Hematocrit 38.0 36.0-46.0 % Mean Corpuscular Volume 82.9 80.0-100.0 fL Mean Corpuscular Hemoglobin 27.0 L 28.0-32.0 pg Mean Corpuscular Hemoglobin Concent 32.6 32.0-36.0 g/dL Red Cell Distribution Width 16.3 H 11.8-14.3 % Platelet Count 390 140-450 10^3/uL Mean Platelet Volume 8.6 6.9-10.8 fL Neutrophils (%) (Auto) 78.5 37.0-80.0 % Lymphocytes (%) (Auto) 11.3 10.0-50.0 % Monocytes (%) (Auto) 9.1 0.0-12.0 % Eosinophils (%) (Auto) 0.8 0.0-7.0 % Basophils (%) (Auto) 0.3 0.0-2.0 % Neutrophils # (Auto) 8.0 1.6-8.6 10 ^3/uL Lymphocytes # (Auto) 1.1 0.4-5.4 10 ^3/uL Monocytes # (Auto) 0.9 0-1.3 10 ^3/uL Eosinophils # (Auto) 0.1 0-0.8 10 ^3/uL Basophils # (Auto) 0 0-0.2 10 ^3/uL Nucleated Red Blood Cells 0.2 % Troponin I High Sensitivity 83 *H </=34 ng/L Prothrombin Time 18.8 H 9.3-11.8 sec Prothrombin Time INR 1.86 H 0.9-1.15 Activated Partial Thromboplast Time 32.6 24.5-34.5 SEC Phosphorus Level 2.4 2.4-5.1 mg/dL Magnesium Level 1.9 1.6-2.6 mg/dL Triglycerides Level 102 < 150 mg/dL Cholesterol Level 105 < 200 mg/dL LDL Cholesterol 53 < 100 mg/dL HDL Cholesterol 31 L 40-59 mg/dL Vitamin B12 Level > 2000 H 211-911 pg/mL Vitamin D 25-Hydroxy 79.8 30.0-100 ng/mL Thyroid Stimulating Hormone (TSH) 1.71 0.55-4.78 uIU/mL Hepatitis A IgM Antibody Negative Hepatitis B Surface Antigen Negative Negative Hepatitis B Core IgM Antibody Negative Hepatitis C Antibody Negative Negative Test 07/13/24 05:07 07/12/24 18:22 07/12/24 12:54 Range/Units Carcinoembryonic Antigen 2.77 <=5.0 ng/mL CA 125 Antigen 149.0 H 0.0-38.1 U/mL Urine Color Yellow Yellow Urine Clarity Turbid H Clear Urine pH 5.5 5.0-9.0 Urine Specific [place] 1.017 1.001-1.035 Urine Protein 1+ H Negative Urine Ketones Negative Negative Urine Blood Negative Negative /uL Urine Nitrite Negative Negative Urine Bilirubin Negative Negative Urine Urobilinogen Normal Negative mg/dL Urine Leukocyte Esterase 3+ Negative /uL Urine RBC 5 0 - 4 /hpf Urine WBC 119 0 - 5 /hpf Urine WBC Clumps Present None Seen /hpf Urine Squamous Epithelial Cells Few <5 /hpf Urine Bacteria None seen None Seen /hpf Urine Hyaline Casts Few 0 - 2 /lpf Urine Mucus Few None Seen Urine Glucose Normal Normal mg/dL Erythrocyte Sedimentation Rate 4 0-20 mm/hr Hemoglobin A1c 5.6 <5.7 % A1C C-Reactive Protein High Sensitivity 4.57 H <1.0 mg/dL B-Type Natriuretic Peptide > 5000.00 0-100 pg/mL Hepatitis A Antibody Total Negative Negative Hepatitis B Surface Antibody Negative Negative Hepatitis B Core Total Antibody Negative Negative Microbiology Date/Time Source Procedure Growth Status 07/13/24 06:00 Voided Urine Urine Culture - Final Enterococcus faecalis Complete Imaging: CT abdomen pelvis IMPRESSION: 1. Gallbladder wall thickening. Right upper quadrant ultrasound recommended for further evaluation. 2. Diffuse stool throughout colon may represent constipation in the appropriate clinical setting. 3. Body wall anasarca. 4. 2.6 cm infrarenal abdominal aortic aneurysm. 5. Bibasilar opacities and trace effusions. Abdominal ultrasound IMPRESSION: 1. The gallbladder appears contracted. There is no sonographic evidence of cholelithiasis. 2. Partially visualized is right pleural effusion. Assessment: Weight loss History of colon cancer CKD Transaminitis Plan: Discussed with Dr. Fragoso Increase calorie intake and supplemental ensure discussed extensively, patient agrees and understands Possible PEG tube discussed with patient and son, which both deny at this time Patient has appointment with GI clinic discussed coming Thursday From GI point of view patient is cleared for discharge We will follow-up in GI clinic Plan discussed with patient, son at bedside, and RN Thank you for this consult Date of Service: Jul 15, 2024 Billing Provider: ERWIN DUNLAP Common Visit Codes: [id number] INP/OBS CARE (MOD), CONSULT ONLY Consultation Codes: [id number] CONSULT <45MIN ERWIN DUNLAP Jul 15, 2024 13:24
--- NOTE | 2024-07-15 14:52 | DVH ---
MRI Abdomen, MRCP without IV Contrast Exam Date: 07/15/2024 01:33 PM Comparison: None History: transaminitis Technique: Multisequence multiplanar MRI images were obtained of the abomen. MRCP including 3D SPACE, Radial 3D slabs and SPACE 3D MIP images Findings: Small bilateral pleural effusions. Liver: The liver is normal in size without focal lesions. Normal liver contour. Spleen: Unremarkable. Pancreas: Subcentimeter cyst in the body of the pancreas. Gallbladder and ducts: Mild gallbladder wall thickening. No cholelithiasis. The cystic duct, right a nd left hepatic ducts, common hepatic duct, and common bile ducts are unremarkable. The pancreatic duct is within normal limits. Adrenal glands: Unremarkable. Kidneys: Bilateral renal cysts. No hydronephrosis. Visualized bowel: Grossly unremarkable. Vasculature: Unremarkable. Lymphadenopathy: No evidence for lymphadenopathy. Ascites: Trace abdominal ascites Musculoskeletal: Scoliosis with associated multilevel degenerative disease. IMPRESSION: 1. Mild gallbladder wall thickening. No cholelithiasis. No evidence of biliary obstruction. Small mushtaq ateral pleural effusions. Trace abdominal ascites. Bilateral renal cysts. Suspect volume overload o r congestive failure. HS:Y.
--- NOTE | 2024-07-15 15:36 | DVHPNRES ---
Progress Note Date Seen: Jul 15, 2024 Resident Creating Document: ARLEN RODRIGUEZ SIRI Has the PT tested + for MRSA If YES, has PT been informed?: No Medical Necessity Reason Pt with a Central, PICC or Fol: No Subjective Review of Systems Patient is examined at bedside. Patient is feeling better since admission and I do not have active complaint. Patient LFTs are elevated, yesterday stopped atorvastatin but still LFTs are deranged. MRCP is planned for to look the reason. Patient reports: No new complaints, Feels better Changes from previous H/P or p: Changes Review of Systems: HEENT:Normal, CVS:Normal, RESPIRATORY:Normal, GI:Normal, :Normal, MSK:Normal, NEURO:Normal Objective vital signs Vital Sign Date Time Temp Pulse Resp B/P (MAP) Pulse Ox O2 Delivery O2 Flow Rate FiO2 07/15/24 12:55 98.4 114 20 106/42 (63) 97 98.4 07/15/24 11:55 Room Air 07/15/24 11:55 0 21 Total Intake and Output 07/14/24 07/14/24 07/15/24 15:00 23:00 07:00 Intake Total 620 ml 200 ml Output Total 900 ml Balance -280 ml 200 ml medications Current Medications Medications Dose Ordered Sig/Yvonne Route Start Time Stop Time Status Last Admin Dose Admin Sodium Chloride 10 ml Q8HR IV 07/12/24 22:00 07/15/24 06:07 10 ML Acetaminophen/ Hydrocodone Bitart 1 tab Q4HP PRN PO 07/12/24 22:00 Ondansetron HCl 4 mg Q4HP PRN IV 07/12/24 22:00 Nitroglycerin 0.4 mg Q5MINP PRN SL 07/12/24 22:00 Morphine Sulfate 2 mg Q30M PRN IV 07/12/24 22:00 Metoprolol Succinate 25 mg DAILY PO 07/13/24 10:00 07/15/24 09:30 25 MG Apixaban 2.5 mg BID PO 07/13/24 10:00 07/15/24 09:29 2.5 MG Hydroxychloroquine Sulfate 200 mg DAILY PO 07/13/24 10:00 07/15/24 09:29 200 MG Aspirin 81 mg DAILY PO 07/13/24 10:00 07/15/24 09:29 81 MG Ceftriaxone Sodium 50 ml @ 100 mls/hr DAILY@09 IV 07/13/24 09:00 07/15/24 09:29 100 MLS/HR Furosemide 20 mg DAILY PO 07/14/24 10:00 07/15/24 09:31 20 MG Empaglifozin 10 mg DAILY PO 07/14/24 10:00 07/15/24 09:29 10 MG Albuterol 2.5 mg Q6HR NEB 07/14/24 18:00 07/15/24 11:55 2.5 MG Ipratropium [place] 0.5 mg Q6HR NEB 07/14/24 18:00 07/15/24 11:54 0.5 MG Budesonide 0.5 mg BID NEB 07/14/24 22:00 07/15/24 06:35 0.5 MG Sacubitril/ Valsartan 0.5 tab BID PO 07/14/24 22:00 07/15/24 09:30 0.5 TAB Examination General Appearance: Alert, Oriented X3, Cooperative, No acute distress HEENT: Atraumatic, PERRLA, EOMI, Mucous membrane moist/pink Respiratory: Clear to auscultation, Normal air movement Cardiovascular: Regular rate, Normal S1, Normal S2, No murmurs, no chest wall tenderness Abdominal: Normal bowel sounds, Soft, No tenderness, No hepatospenomegaly, No masses Extremities: No clubbing, No cyanosis, No edema, Normal pulses, No tenderness/swelling Skin: Bilateral lower limb senile purpura, petechial rashes with scratching coker laboratory and microbiology Laboratory Tests 07/15/24 05:18 07/14/24 06:09 Test 07/15/24 05:18 Range/Units Serum Glucose 88 74-106 mg/dL Microbiology Date/Time Source Procedure Growth Status 07/13/24 06:00 Voided Urine Urine Culture - Final Enterococcus faecalis Complete Labs and/or images reviewed: Labs reviewed by me, Image(s) reviewed by me Problem List/Assessment/Plan Problem List/Assessment/Plan Acute on chronic systolic congestive heart failure Volume overload, likely due to CHF Bilateral small pleural effusion, likely due to volume overload secondary to CHF Bilateral lower limb pedal edema, grade 3 during admission, improved BNP is more than 5000 Chest x-ray shows bilateral small pleural effusion Echocardiogram shows, Severely dilated left ventricle. Severely reduced left ventricular systolic function with estimated ejection fraction 25% in a global fashion Cardiology on board, recommend furosemide 20 mg daily, switching spironolactone to Entresto, and continuing with metoprolol and empagliflozin. No life vest/ICD placement indicated at this point (patient refused and also due to patients life expectancy). Continue Entresto 0.5 b.i.d. GI on the board, possible PEG tube discussed with patient and son, which both deny at this time Peripheral artery disease, status post stent Discontinue atorvastatin, due to raised HD RACIEL on CKD grade 3A (based on records from 06/02/24), likely hemodynamically mediated Creatinine is raised 1.37, downtrending Hyperkalemia Improved Discontinue Lokelma History of colon cancer, status post surgery 2010 In remission, follow up on outpatient basis NSTEMI, likely type 2 Trop I is mildly raised, downtrending Cardiology on board COPD with no exacerbation Breathing treatment q.6 hours Budesonide inhalation b.i.d. Transaminitis, likely hemodynamically mediated Liver ultrasound shows contracted gallbladder with no sonographic evidence of cholelithiasis Hepatitis panel normal Stopped atorvastatin and Tylenol MRCP to evaluate the reason of raised AST/ALT Rheumatoid arthritis Continue hydroxychloroquine Abdominal aortic aneurysm, infrarenal, 2.[address] scan finding Follow up on outpatient basis Chronic atrial fibrillation Yann Vasc score is 6 Continue Eliquis 2.5 mg b.i.d. Mild hyponatremia Monitoring UTI, unspecified location Urinalysis shows UTI picture Urine culture shows Enterococcus faecalis Ampicillin 1 g q.6 hour DVT prophylaxis On Eliquis Stress ulcer prevention Protonix Code status Full Code Case discussed with Dr. Tata Jonas discussed with: Patient ARLEN RODRIGUEZ RESDIENT Jul 15, 2024 15:36
[2024-07-15] MEDS: AMPICILLIN INJ 1 GM in SODIUM CHL 0.9% 100 ML IV SCH (18:04)
[2024-07-16] VITALS (11 sets, daily range): BP systolic 100–130; BP diastolic 49–68; PULSE 62–86; RESP 16–18; TEMP 97.8–98; O2SAT 97–100
[2024-07-16 09:20] LABS: Basophils # (auto) 0 10 ^3/uL (0-0.2); Basophils % (auto) 0.1 % (0.0-2.0); Eosinophils # (auto) 0 10 ^3/uL (0-0.8); Eosinophils % (auto) 0.2 % (0.0-7.0); Hematocrit 38.1 % (36.0-46.0); Hemoglobin 12.3 g/dL (12.2-16.2); Mean Corpuscular Hemoglobin 26.8 pg (28.0-32.0); Mean Corpuscular Hgb Conc. 32.3 g/dL (32.0-36.0); Mean Corpuscular Volume 82.8 fL (80.0-100.0); Monocytes # (auto) 0.6 10 ^3/uL (0-1.3); Monocytes % (auto) 5.8 % (0.0-12.0); Neutrophils # (auto) 8.1 10 ^3/uL (1.6-8.6); Neutrophils % (auto) 83.9 % (37.0-80.0); Nucleated Red Blood Cells % 0.2 %; Platelet Count (auto) 354 10^3/uL (140-450); Red Blood Cells 4.59 10^6/uL (4.0-5.20); Red Cell Distribution Width 16.8 % (11.8-14.3); White Blood Cell 9.7 10^3/uL (4.4-10.8)
[2024-07-16 09:36] LABS: Alanine Aminotransferase 402 U/L (7-40); Albumin 3.4 g/dL (3.2-4.8); Alkaline Phosphatase 132 U/L (46-116); Anion Gap 6 (5-15); Aspartate Aminotransferase 262 U/L (13-40); BUN/Creatinine Ratio 32.8 (10.0-20.0); Blood Urea Nitrogen 41 mg/dL (9-23); Calcium 9.6 mg/dL (8.7-10.4); Carbon Dioxide 29 mmol/L (20-31); Chloride 97 mmol/L (98-107); Glucose 138 mg/dL (74-106); Potassium 3.5 mmol/L (3.5-5.1); Sodium 132 mmol/L (136-145)
[2024-07-16 09:37] LABS: Bilirubin, Total 1.4 mg/dL (0.2-1.0); Total Protein 6.3 g/dL (5.7-8.2)
[2024-07-16] MEDS ORDERED: BACDST PO (11:31)
[2024-07-16] MEDS ORDERED: FURO20TA4 PO (11:31)
[2024-07-16] MEDS ORDERED: EMPA1TAB PO (11:31)
--- NOTE | 2024-07-16 14:50 | DVHDSRES ---
Discharge Summary Date of Admission Resident Creating Document: ARLEN RODRIGUEZ RESDIENT Jul 12, 2024 at 21:47 Date of Discharge: Jul 16, 2024 Admitting Diagnosis CHF elevated troponin Labs/Diagnostic Data: Laboratory Results Test 07/16/24 08:24 07/15/24 14:40 07/15/24 05:18 07/13/24 21:42 White Blood Count 9.7 10^3/uL (4.4-10.8) Red Blood Count 4.59 10^6/uL (4.0-5.20) Hemoglobin 12.3 g/dL (12.2-16.2) Hematocrit 38.1 % (36.0-46.0) Mean Corpuscular Volume 82.8 fL (80.0-100.0) Mean Corpuscular Hemoglobin 26.8 pg (28.0-32.0) Mean Corpuscular Hemoglobin Concent 32.3 g/dL (32.0-36.0) Red Cell Distribution Width 16.8 % (11.8-14.3) Platelet Count 354 10^3/uL (140-450) Mean Platelet Volume 8.9 fL (6.9-10.8) Neutrophils (%) (Auto) 83.9 % (37.0-80.0) Lymphocytes (%) (Auto) 10.0 % (10.0-50.0) Monocytes (%) (Auto) 5.8 % (0.0-12.0) Eosinophils (%) (Auto) 0.2 % (0.0-7.0) Basophils (%) (Auto) 0.1 % (0.0-2.0) Neutrophils # (Auto) 8.1 10 ^3/uL (1.6-8.6) Lymphocytes # (Auto) 1.0 10 ^3/uL (0.4-5.4) Monocytes # (Auto) 0.6 10 ^3/uL (0-1.3) Eosinophils # (Auto) 0 10 ^3/uL (0-0.8) Basophils # (Auto) 0 10 ^3/uL (0-0.2) Nucleated Red Blood Cells 0.2 % Sodium Level 132 mmol/L (136-145) Potassium Level 3.5 mmol/L (3.5-5.1) Chloride Level 97 mmol/L (98-107) Carbon Dioxide Level 29 mmol/L (20-31) Anion Gap 6 (5-15) Blood Urea Nitrogen 41 mg/dL (9-23) Creatinine 1.25 mg/dL (0.550-1.02) Glomerular Filtration Rate Calc 42 mL/min (>90) BUN/Creatinine Ratio 32.8 (10.0-20.0) Serum Glucose 138 mg/dL (74-106) Calcium Level 9.6 mg/dL (8.7-10.4) Total Bilirubin 1.4 mg/dL (0.2-1.0) Aspartate Amino Transferase (AST) 262 U/L (13-40) Alanine Aminotransferase (ALT) 402 U/L (7-40) Alkaline Phosphatase 132 U/L (46-116) Total Protein 6.3 g/dL (5.7-8.2) Albumin 3.4 g/dL (3.2-4.8) Anti-Nuclear Antibody Screen Negative (Negative) Ferritin 31.0 ng/mL (10-291) Troponin I High Sensitivity 83 ng/L (</=34) Test 07/13/24 16:30 07/13/24 05:07 07/12/24 18:22 07/12/24 12:54 Prothrombin Time 18.8 sec (9.3-11.8) Prothrombin Time INR 1.86 (0.9-1.15) Activated Partial Thromboplast Time 32.6 SEC (24.5-34.5) Phosphorus Level 2.4 mg/dL (2.4-5.1) Magnesium Level 1.9 mg/dL (1.6-2.6) Triglycerides Level 102 mg/dL (< 150) Cholesterol Level 105 mg/dL (< 200) LDL Cholesterol 53 mg/dL (< 100) HDL Cholesterol 31 mg/dL (40-59) Vitamin B12 Level > 2000 pg/mL (211-911) Vitamin D 25-Hydroxy 79.8 ng/mL (30.0-100) Thyroid Stimulating Hormone (TSH) 1.71 uIU/mL (0.55-4.78) Hepatitis A IgM Antibody Negative Hepatitis B Surface Antigen Negative (Negative) Hepatitis B Core IgM Antibody Negative Hepatitis C Antibody Negative (Negative) Carcinoembryonic Antigen 2.77 ng/mL (<=5.0) CA 125 Antigen 149.0 U/mL (0.0-38.1) Urine Color Yellow (Yellow) Urine Clarity Turbid (Clear) Urine pH 5.5 (5.0-9.0) Urine Specific [place] 1.017 (1.001-1.035) Urine Protein 1+ (Negative) Urine Ketones Negative (Negative) Urine Blood Negative /uL (Negative) Urine Nitrite Negative (Negative) Urine Bilirubin Negative (Negative) Urine Urobilinogen Normal mg/dL (Negative) Urine Leukocyte Esterase 3+ /uL (Negative) Urine RBC 5 /hpf (0 - 4) Urine WBC 119 /hpf (0 - 5) Urine WBC Clumps Present /hpf (None Seen) Urine Squamous Epithelial Cells Few /hpf (<5) Urine Bacteria None seen /hpf (None Seen) Urine Hyaline Casts Few /lpf (0 - 2) Urine Mucus Few (None Seen) Urine Glucose Normal mg/dL (Normal) Erythrocyte Sedimentation Rate 4 mm/hr (0-20) Hemoglobin A1c 5.6 % A1C (<5.7) C-Reactive Protein High Sensitivity 4.57 mg/dL (<1.0) B-Type Natriuretic Peptide > 5000.00 pg/mL (0-100) Hepatitis A Antibody Total Negative (Negative) Hepatitis B Surface Antibody Negative (Negative) Hepatitis B Core Total Antibody Negative (Negative) Other Laboratory Tests 07/16/24 08:24 Brief Hx & Hospital Course: This is an 88-year-old female with a past medical history of colon cancer, RA, COPD, atrial fibrillation, hypertension, hyperlipidemia, peripheral arterial disease, and systolic heart failure who presented to the ED with bilateral swelling of the legs for the last week prior to this admission. According to the patient, bilateral leg swelling started 1 week ago and has been getting worse, which is associated with pain during walking. The patient also complained of exertional shortness of breath and constipation for which she uses MiraLax. She denies chest pain, shortness of breath, dizziness, diaphoresis, abdominal pain, nausea, and vomiting. PCP: Dr. Vasquez [employer]: Dr. Guy PMHx: Colon cancer (status post surgery, 2010), systolic heart failure, RA, COPD, atrial fibrillation, hypertension, hyperlipidemia, peripheral arterial disease (status post stent), history of UTI 1 month ago PSHx: Hysterectomy (1994, due to heavy bleeding) Family history: Significant for early coronary artery disease in father and brother Social history: Lives alone, uses a walker for mobility, ex-smoker with a 25 pack-year history, denies any other drug use Home medication: Apixaban, aspirin, atorvastatin, vitamin D supplement, MiraLax, metoprolol, pantoprazole, spironolactone 25 mg, hydroxychloroquine, Trelegy Allergic history: Noncontributory Physical examination is significant for bilateral lower limb pedal edema (grade 2), senile purpura, and petechial rash with scratching coker. There are diffuse bilateral crackles on chest auscultation. Otherwise, the physical examination is unremarkable. Lab studies are significant for raised WBC at 11.9, potassium at 5.2, creatinine at 1.37, elevated LFTs with AST 40, ALT 507, bilirubin 1.7, troponin I raised at 88, BNP more than [address], and urinalysis shows UTI picture. Otherwise, lab studies are unremarkable. On chest X-ray, there is bilateral small pleural effusion with blunting of the angles. Bilateral lower limb Doppler ultrasound is normal. Abdominal pelvic CT shows gallbladder wall thickening with body wall anasarca and an incidental finding of an abdominal aortic aneurysm of 2.6 cm. Liver ultrasound shows a contracted gallbladder with no sonographic evidence of cholelithiasis. The patient was admitted to the hospital for volume overload due to systolic heart failure. Injection Lasix 40 mg IV b.i.d., injection ceftriaxone, and her home medications were resumed. Cardiology was consulted and recommended adjusting the medication, including changing the IV diuretic to oral, stopping spironolactone, and adding Entresto and Jardiance. An echocardiogram was performed and showed an ejection fraction of 25%. LifeVest and ICD options were discussed with the family and patient, which they refused. Gastroenterology was consulted for the cachexia, and G-tube options were discussed with the patient due to malnutrition. The patient was counseled on the administration of nutrition, including using Ensure b.i.d. Urinalysis came back positive for Enterococcus, for which ampicillin was given and ceftriaxone was stopped. LFTs were deranged, but AST and ALT were downtrending slowly. Tylenol and atorvastatin were stopped, and the numbers continued to downtrend. MRCP was done, showing no significant abnormalities. On 07/16/2024, the patient was feeling better and had no active complaints. Peripheral edema and shortness of breath had improved. The discharge plan was discussed with the patient, and she was discharged with Entresto 0.5 tablet b.i.d., Jardiance 10 mg daily, Lasix 20 mg daily, metoprolol, stopped spironolactone and Bactrim for 10 days. She was recommended to continue the rest of her home medications. The patient was counseled to follow up with the PCP within 1 week after discharge, with cardiology on an outpatient basis, and with GI on an outpatient basis. Consults/Reason for consult Cardiology: Volume overload and raised troponin I Gastroenterology: For recommendation of Possibility of G-tube Operations or Procedures [place] [id number] Ph: [phone] DIAGNOSTIC IMAGING Diagnostic Imaging Report : [id number] Signed PATIENT: ELO TRAMMELL ACCT: [id number] UNIT: [id number] : 1935 LOC: [facility] ROOM / BED: [facility] / B AGE / SEX: 88 / F ADM STATUS: ADM IN SERVICE 20 ORDERING PHYSICIAN: MARIA DEL CARMEN COBB RESIDENT PROCEDURE(s): ABPL - CT AB PEL WO CON-NO ORAL OR IV REASON: abdominal pain ORDER NUMBER(s): [id number], ACCESSION NUMBER(s): [id number] Exam: CT CT AB PEL WO CON-NO ORAL OR IV History: Abdominal pain Comparison Study: None available at time of dictation. TECHNIQUE: Multidetector CT of the abdomen and pelvis was performed from lung bases to ischial tuberosities. Imaging was performed without IV contrast using axial images. Coronal and sagittal reformats were obtained from the axial data set by the technologist. Radiation Dose Information: CT Dose: CTDI volume is [CTDIvol] mGy. Dose-length product is 256.06 mGy*cm FINDINGS: Evaluation of solid organs is limited due to lack of intravenous contrast use. Findings: Lung Bases: Bibasilar atelectasis. Small bilateral pleural effusions. Normal heart size. Cardiomegaly. Liver: The liver is normal in size. No focal lesions. Gallbladder and Biliary Tree: Gallbladder is contracted and there is wall thickening. Spleen: Unremarkable Pancreas: The pancreas is grossly normal in appearance. Adrenal Glands: Unremarkable Kidneys: Kidneys are grossly normal without calculi or hydronephrosis. Bilateral renal cysts. GI Tract: The stomach is grossly normal in appearance. The small bowel is normal in caliber. Diffuse stool throughout colon. Surgical anastomosis in the ascending colon. Appendix not visualized, however no acute inflammatory changes in the right lower quadrant. Peritoneal cavity: No pneumoperitoneum. Trace ascites. Lymphadenopathy: No mesenteric, retroperitoneal or periportal lymphadenopathy. Abdominal Wall and Mesentery: Unremarkable. Vasculature: 2.6 cm infrarenal abdominal aortic aneurysm. Pelvic Organs: Unremarkable Urinary Bladder: Grossly unremarkable for degree of distention. Musculoskeletal: No aggressive focal bony lesions, acute fractures or dislocation. Multilevel lumbar spondylosis. Soft tissues: Diffuse body wall anasarca. IMPRESSION: 1. Gallbladder wall thickening. Right upper quadrant ultrasound recommended for further evaluation. 2. Diffuse stool throughout colon may represent constipation in the appropriate clinical setting. 3. Body wall anasarca. 4. 2.6 cm infrarenal abdominal aortic aneurysm. 5. Bibasilar opacities and trace effusions. Radiation optimization: All CT scans at this facility use at least one of these dose optimization techniques: automated exposure control mA and/or kV adjustment per patient size (includes targeted exams where dose is matched to clinical indication) or iterative reconstruction. ATED BY: LILIAN ESTEBAN MD DICTATED DATE/TIME: 07/13/24545 SIGNED BY: LILIAN ESTEBAN MD SIGNED DATE/TIME: 07/13/24545 CC: [place] [id number] Ph: [phone] DIAGNOSTIC IMAGING Diagnostic Imaging Report : [id number] Signed PATIENT: ELO TRAMMELL ACCT: [id number] UNIT: [id number] : 1935 LOC: [facility] AGE / SEX: 88 / F ADM STATUS: ADM IN SERVICE 46 ORDERING PHYSICIAN: MARIA DEL CARMEN COBB RESIDENT PROCEDURE(s): ECIDC - ECHO 2D MODE CARDIAC DOP REASON: CHF ORDER NUMBER(s): [id number], ACCESSION NUMBER(s): [id number] APPROVED REPORT EXAM: Two-dimensional and M-mode echocardiogram with Doppler and color Doppler. Blood Pressure: 124/67 mmHg INDICATION Heart Failure RISK FACTORS Height: 5'2", Weight: 101 DIMENSIONS LVDd 4.4 (3.8-5.7cm) LA (2D) 4.5 (1.9-4.0cm) Aortic Root 3.4 (2.0- 3.7cm) LVDs 3.9 (2.5-4.0cm) LA (MM) (1.9-4.0cm) Aortic Cusp Exc 1.6 (1.5- 2.0cm) EF (%) 27.0 (55-70%) Rt. Atrium 4.8 (1.9-4.0cm) Asc. Aorta 3.1 cm IVSd 1.1 (0.7-1.1cm) RV (D) 3.3 (1.8-2.4cm) PWd 0.9 (0.7-1.1cm) Mitral Valve Mitral Mitral Stenosis E wave 0.93m/s MV Mean GR. mmHg E/A ratio 0.0 2D MVA cm2 Aortic Valve Aortic Valve Aortic Stenosis V1 0.71m/s AO Mean GR. 2mmHg V2 0.78m/s AO Peak GR. 2mmHg LVOT Diameter 1.9 (1.8-2.4cm) Doppler BENNIE 2.58cm2 AI P 1/2 Time 481.94ms Pulmonic Valve V2 0.49m/s Tricuspid Valve TR Velocity 1.83m/s RVSP 22mmHg Other Information Quality : Technically Limited Rhythm : Technically limited study due to body habitus. Conclusion Severely dilated left ventricle. Severely reduced left ventricular systolic function with estimated ejection fraction 25% in a global fashion. Patient is in atrial fibrillation Moderately dilated right ventricular moderately reduced right ventricular systolic function. Moderately dilated right atrium. Borderline dilated left atrium. There is mild aortic valve sclerosis. There is mild aortic valve regurgitation. There is [id number] tricuspid valve regurgitation. There is mild mitral valve regurgitation. The pulmonary valve is grossly normal. No significant pericardial effusion. SIGNED BY: PETER GOMEZ MD SIGNED DATE/TIME: 07/13/24 1650 CC: Condition at Discharge: Good Final Diagnosis/Problems List Acute on chronic systolic congestive heart failure Volume overload, likely due to CHF Bilateral small pleural effusion, likely due to volume overload secondary to CHF Peripheral artery disease, status post stent RACIEL on CKD grade 3A (based on records from 06/02/24), likely hemodynamically mediated Hyperkalemia History of colon cancer, status post surgery 2011 NSTEMI, likely type 2 COPD with no exacerbation Transaminitis, likely hemodynamically mediated Rheumatoid arthritis Abdominal aortic aneurysm, infrarenal, 2.6 cm Chronic atrial fibrillation Mild hyponatremia UTI, unspecified location History of colon cancer COPD with no exacerbation History of moderate coronary artery disease Weight loss Transaminitis Discharge Disposition: Home Discharge Instruct/Medications Diet: Regular Diet comment: The patient was counselled for taking supplements (Ensure, twice daily), for optimizing her nutritional status Activity: No Restrictions, As Tolerated Follow Up/Referral: follow up with the PCP within one week after discharge follow up with the cardiology after discharge follow up with the GI on out patient basis Medications: Start back, Enteresto 0.5 tab BID metoprolol 25 mg daily Jardiance 20 mg daily stop spironolactone stop losartan tab. Bactrim DS for 10 days for the UTI tab. lasix 20mg daily continue the rest of home medication Discharge Statement: "Patient was advised to return to the ER or call 911 if any headaches, dizziness, shortness of breath, chest pain, abdominal pain, bleeding, fevers, or worsening of medical condition. Patient was counseled about treatment plan, medications, possible side effects, patientverbalized understanding. All questions were answered to the best of my ability. This discharge took greater then 30 minutes in planning, reviewing documentation, counseling the patient, and discussing with other team members." ASSESSMENT ASSESSMENT Assessment VOLUME OVERLOAD DUE TO CHF Date of Service: Jul 16, 2024 Billing Provider: JU GAITAN MD Common Visit Codes: 52950-TEH/OBS DISCH DAY >30min ARLEN RODRIGUEZ RESDIENT Jul 16, 2024 14:50 JU GAITAN MD Jul 17, 2024 16:25
[2024-07-16] MEDS ORDERED: AMPICILLIN INJ 1 GM in SODIUM CHL 0.9% 100 ML IV SCH (18:00)
--- NOTE | 2024-07-16 21:35 | DVHPN2 ---
Progress Note - Dictate Date Seen: Jul 16, 2024 (Late entryPatient seen at 10:00 a.m.) Has the PT tested + for MRSA If YES, has PT been informed?: No Medical Necessity Reason Pt with a Central, PICC or Fol: No Subjective No new complaints Resting comfortably Liver enzymes are trending down Hepatitis panel and ALEJANDRA are negative vital signs Vital Sign Date Time Temp Pulse Resp B/P (MAP) Pulse Ox O2 Delivery O2 Flow Rate FiO2 07/16/24 12:25 84 16 100 07/16/24 12:19 Room Air* 0 21 07/16/24 11:31 130/68 07/16/24 09:00 98.0 98.0 Total Intake and Output 07/15/24 07/15/24 07/16/24 15:00 23:00 07:00 Intake Total 550 ml 480 ml Output Total 800 ml 400 ml Balance -250 ml 80 ml objective General: NAD, AAOX3 Chest: lung coronado clear to auscultation Heart: RRR, no murmur Abdomen: non-distended, no tenderness to palpation, +BS laboratory and microbiology Laboratory Tests 07/16/24 08:24 Test 07/16/24 08:24 Range/Units Serum Glucose 138 H 74-106 mg/dL Problems(with codes): (1) Elevated LFTs (2) Generalized weakness (3) Weight loss Prognosis PLAN Increase calorie intake and supplemental ensure discussed extensively, patient agrees and understands Possible PEG tube discussed with patient and son, which both refudes at this time Patient has appointment with GI clinic discussed coming Thursday From GI point of view patient is cleared for discharge We will follow-up in GI clinic Plan discussed with: Patient, Other (Moriah Dawkins) ART BAHENA MD Jul 16, 2024 21:35
--- NOTE | 2024-07-20 09:42 | CODING ---
Date of Service: Jul 15, 2024 Billing Provider: AMERICA CAMARENA MD Common Visit Codes: 78093-[id number] INP/OBS CARE(HIGH) AMERICA CAMARENA MD Jul 20, 2024 09:42
== END 2024-07-16 13:45 | disposition home or self-care (01) | DRG 280 ==
LOC: ER 12:29 → TELE 21:47 → TELE-WESTW 23:53
PROVIDERS: ADMIT Student in an Organized Health Care Education/Training Program; ATTEND Emergency Medicine
DX: I13.0 Hypertensive heart and chronic kidney disease with heart failure and stage 1 through stage 4 chronic kidney disease, or unspecified chronic kidney disease (principal); I50.23 Acute on chronic systolic (congestive) heart failure; I21.A1 Myocardial infarction type 2; D68.59 Other primary thrombophilia; N17.9 Acute kidney failure, unspecified; E87.1 Hypo-osmolality and hyponatremia; N39.0 Urinary tract infection, site not specified; J90 Pleural effusion, not elsewhere classified; I48.0 Paroxysmal atrial fibrillation; E87.5 Hyperkalemia; I71.43 Infrarenal abdominal aortic aneurysm, without rupture; I73.9 Peripheral vascular disease, unspecified; J44.9 Chronic obstructive pulmonary disease, unspecified; M06.9 Rheumatoid arthritis, unspecified; G62.9 Polyneuropathy, unspecified; I25.10 Atherosclerotic heart disease of native coronary artery without angina pectoris; R74.01 Elevation of levels of liver transaminase levels; N18.31 Chronic kidney disease, stage 3a; E78.5 Hyperlipidemia, unspecified; Z90.710 Acquired absence of both cervix and uterus; R63.4 Abnormal weight loss; Z85.038 Personal history of other malignant neoplasm of large intestine; Z80.0 Family history of malignant neoplasm of digestive organs; Z87.891 Personal history of nicotine dependence; Z82.49 Family history of ischemic heart disease and other diseases of the circulatory system; Z80.3 Family history of malignant neoplasm of breast; Z79.82 Long term (current) use of aspirin; Z79.899 Other long term (current) drug therapy
CPT/HCPCS: 36415; 71045; 74176; 74181; 76705; 80053; 80061; 80074; 81001; 82306; 82378; 82607; 82728; 83036; 83735; 83880; 84100; 84443; 84484; 85025; 85610; 85652; 85730; 86038; 86141; 86304; 86704; 86706; 86708; 86803; 87086; 87088; 87186; 87340; 93005; 93306; 93970; 94640; 96374; 96375; 97110; 97116; 97163; 97530; 99291; G0378; J1815

== ENCOUNTER → 2024-07-22 | Outpatient (CLI) | payer OTHER ==
[~2024-07-22] MED LIST changes: +BACDST PO; -CLOP75TA70 PO; +EMPA1TAB PO; +FLUT1AER3 IN; +FURO20TA4 PO; -FURO40TA4 PO; +MIRT1TAB38 PO; -PANT40T PO; -POTA-220 PO; -POTA-36 PO; -SPIR25TA8 PO; -VALS160T82 PO
[2024-07-22 12:56] LABS: Basophils # (auto) 0.1 10 ^3/uL (0-0.2); Eosinophils # (auto) 0 10 ^3/uL (0-0.8); Eosinophils % (auto) 0.1 % (0.0-7.0); Hematocrit 34.5 % (36.0-46.0); Hemoglobin 11.3 g/dL (12.2-16.2); Lymphocytes # (auto) 0.9 10 ^3/uL (0.4-5.4); Lymphocytes % (auto) 13.4 % (10.0-50.0); Mean Corpuscular Hemoglobin 27.3 pg (28.0-32.0); Mean Corpuscular Hgb Conc. 32.8 g/dL (32.0-36.0); Mean Corpuscular Volume 83.4 fL (80.0-100.0); Monocytes # (auto) 0.6 10 ^3/uL (0-1.3); Monocytes % (auto) 8.9 % (0.0-12.0); Neutrophils # (auto) 5.1 10 ^3/uL (1.6-8.6); Neutrophils % (auto) 76.6 % (37.0-80.0); Nucleated Red Blood Cells % 0.1 %; Platelet Count (auto) 190 10^3/uL (140-450); Red Blood Cells 4.14 10^6/uL (4.0-5.20); White Blood Cell 6.7 10^3/uL (4.4-10.8)
[2024-07-22 13:16] LABS: INR 1.25 (0.9-1.15)
[2024-07-22 14:08] LABS: Alanine Aminotransferase 167 U/L (7-40); Albumin 3.7 g/dL (3.2-4.8); Alkaline Phosphatase 116 U/L (46-116); Anion Gap 9 (5-15); Aspartate Aminotransferase 79 U/L (13-40); BUN/Creatinine Ratio 14.9 (10.0-20.0); Blood Urea Nitrogen 25 mg/dL (9-23); Calcium 9.5 mg/dL (8.7-10.4); Carbon Dioxide 23 mmol/L (20-31); Chloride 103 mmol/L (98-107); Glucose 88 mg/dL (74-106); Potassium 4.9 mmol/L (3.5-5.1); Sodium 135 mmol/L (136-145)
[2024-07-22 14:09] LABS: Bilirubin, Total 1.3 mg/dL (0.2-1.0); Total Protein 6.7 g/dL (5.7-8.2)
[2024-07-23 08:06] LABS: Cancer Antigen (CA) 125 96.2 U/mL (0.0-38.1)
== END | disposition home or self-care (01) ==
LOC: LAB 12:24
PROVIDERS: ATTEND Internal Medicine Gastroenterology
DX: R94.5 Abnormal results of liver function studies (principal); R10.9 Unspecified abdominal pain
CPT/HCPCS: 36415; 80053; 82728; 85025; 85610; 86301; 86304

== ENCOUNTER → 2024-07-29 | Outpatient (CLI) | payer OTHER | END | disposition home or self-care (01) | LOC: LAB 11:59 | PROVIDERS: ATTEND Internal Medicine | DX: J44.9 Chronic obstructive pulmonary disease, unspecified (principal); N18.31 Chronic kidney disease, stage 3a; I50.43 Acute on chronic combined systolic (congestive) and diastolic (congestive) heart failure; R97.1 Elevated cancer antigen 125 [CA 125]; K76.0 Fatty (change of) liver, not elsewhere classified | CPT/HCPCS: 36415; 82310; 82378; 83970; 86304 ==

== ENCOUNTER → 2024-09-13 | Outpatient (CLI) | payer OTHER ==
[2024-09-13 14:29] LABS: Basophils # (auto) 0 10 ^3/uL (0-0.2); Basophils % (auto) 0.4 % (0.0-2.0); Eosinophils # (auto) 0 10 ^3/uL (0-0.8); Eosinophils % (auto) 0.4 % (0.0-7.0); Mean Corpuscular Hgb Conc. 32.6 g/dL (32.0-36.0); Monocytes # (auto) 0.5 10 ^3/uL (0-1.3); Monocytes % (auto) 8.3 % (0.0-12.0); Neutrophils # (auto) 4.7 10 ^3/uL (1.6-8.6); Nucleated Red Blood Cells % 0.1 %; Platelet Count (auto) 145 10^3/uL (140-450)
[2024-09-13 14:31] LABS: Hematocrit 42.7 % (36.0-46.0); Hemoglobin 13.9 g/dL (12.2-16.2); Lymphocytes % (auto) 16.1 % (10.0-50.0); Mean Corpuscular Hemoglobin 26.4 pg (28.0-32.0); Mean Corpuscular Volume 81.1 fL (80.0-100.0); Neutrophils % (auto) 74.8 % (37.0-80.0); Red Blood Cells 5.26 10^6/uL (4.0-5.20); White Blood Cell 6.3 10^3/uL (4.4-10.8)
[2024-09-13 15:08] LABS: Alanine Aminotransferase 30 U/L (7-40); Anion Gap 4 (5-15); BUN/Creatinine Ratio 28.4 (10.0-20.0); Calcium 9.3 mg/dL (8.7-10.4); Carbon Dioxide 28 mmol/L (20-31); Chloride 105 mmol/L (98-107); Glucose 95 mg/dL (74-106); Potassium 4.4 mmol/L (3.5-5.1); Sodium 137 mmol/L (136-145)
[2024-09-13 15:09] LABS: Albumin 3.1 g/dL (3.2-4.8); Alkaline Phosphatase 154 U/L (46-116); Aspartate Aminotransferase 41 U/L (13-40); Bilirubin, Total 1.3 mg/dL (0.2-1.0); Blood Urea Nitrogen 29 mg/dL (9-23); Total Protein 5.9 g/dL (5.7-8.2)
[2024-09-13 15:49] LABS: Platelet Estimate Adequate
[2024-09-13 15:50] LABS: Anisocytosis Moderate; Ovalocytes FEW
== END | disposition home or self-care (01) ==
LOC: LAB 14:13
PROVIDERS: ATTEND Internal Medicine
DX: I10 Essential (primary) hypertension (principal); D64.9 Anemia, unspecified
CPT/HCPCS: 36415; 80053; 85025

== ENCOUNTER 2024-09-19 17:06 | Inpatient (IN) | payer OTHER ==
[~2024-09-19] VITALS: Ht 162.6 cm; Wt 43.6 kg
--- NOTE | 2024-09-19 17:58 | ECG ---
[facility] Test Date: 2024-09-19 Test Time: 17:26:59 Pat Name: ELO TRAMMELL Department: ER Room: 0291 Gender: F Chemist Organic: RAIMUNDO : 1935 Requested By: EMERGENCY EMERGENCY Order Number: [id number] Reading MD: Reza Guy Measurements Intervals [place] Rate: 67 P: 36 [place]: 178 QRS: 79 QRSD: 187 T: -48 QT: 505 QTc: 534 Interpretive Statements Sinus rhythm Atrial premature complex Right atrial enlargement Left bundle branch block Electronically Signed On 09-25-2024 15:05:35 PST by Reza Guy Please click the below link to view image of tracing.
--- NOTE | 2024-09-19 19:10 | ED.PDOC ---
History of Present Illness HPI Comments 89y F who presents to the ED via EMS for chief complaint of abdominal pain. Per EMS, pt lives at care facility and EMS was called after they noted pt had V episode which was ""dark brown emesis." EMS upon arrival states pt has been having diffuse abdominal pain with associated nausea and vomiting for the past 1 1/2 days. EMS states pt has also been having associated generalized weakness for this time period. Pt otherwise in the ED, is alert and oriented but has noted history of dementia. Pt otherwise has noted BP o f155/68 with all other vitals in normal range. Pt otherwise denies any other symptoms at this time. Chief Complaint: Abdominal Pain Time Seen by MD: 18:39 Primary Care Provider: unknown Reviewed Notes: Back Hand Notes Allergies: Coded Allergies: NO KNOWN ALLERGIES (Verified , 02/17/22) Home Meds Active Scripts Furosemide (Furosemide) 20 Mg Tab, 20 MG PO DAILY for 30 Days, #30 TAB Prov:JU GAITAN MD 07/16/24 Apixaban Base (ELIQUIS) 2.5 Mg Tab, 2.5 MG PO BID for 30 Days, #60 TAB Prov:RAY DOWLING RESIDENT 12/23/23 Albuterol Sulfate (VENTOLIN MDI) 90 Mcg Ih, 90 MCG IN Q8HPRN PRN for 30 Days, #5 INH Prov:BABS FRANKS MD 05/15/21 Reported Medications Gabapentin (Gabapentin) 100 Mg Cap, 200 MG PO DAILY for 30 Days, MG 09/20/24 Atorvastatin Calcium (Lipitor) 20 Mg Tab, 1 TAB PO HS, #90 TAB 1 Refill 09/20/24 Vbtlshwcgsu-Aceypmocyelu-Gxywm (Trelegy Ellipta 100-62.5-25 Mcg/INH) 1 Aer Aer, 1 PUFF IN DAILY for 30 Days, #1 07/14/24 Pantoprazole Sodium Sesquihydr (Protonix) 40 Mg Tab, 1 TAB PO DAILY for 90 Days, #90 07/14/24 Docusate Sodium (Docusate Sodium) 100 Mg Tab, 100 MG PO DAILY, TAB 01/13/23 Wellington-3 Fatty Acids (FISH OIL) 1,000 Mg Cap, 1000 MG PO HS for SUPPLEMENT, CAP 02/17/22 Calcium Citrate-Vitamin D (Calcitrate/Vitamin D) Vit D Tab, 1 D PO HS for SUPPLEMENT, TAB 02/17/22 B Complex W/ C (B-Complex Plus Vitamin C) 1 Tab Tab, 1 TAB PO HS for SUPPLEMENT, TAB 02/17/22 Metoprolol Succinate (Metoprolol Succinate Er) 25 Mg Tab, 1 TAB PO DAILY, #30 TAB 0 Refills 01/05/21 Multiple Vitamin (Multivitamins) Cap, 1 CAP PO DAILY, #30 CAP 0 Refills 01/05/21 Folic Acid (Folic Acid) 800 Mcg Cap, 800 MCG PO DAILY, CAP 09/21/17 Cholecalciferol (Gnp Vitamin D) 1,000 Unit Tab, 1 TAB PO DAILY, #30 TAB 5 Refills 09/21/17 Information Source: Patient Mode of Arrival: EMS Vital Signs Vital Signs Date Time Temp Pulse Resp B/P (MAP) Pulse Ox O2 Delivery O2 Flow Rate FiO2 09/19/24 17:26 67 09/19/24 17:14 97.6 18 155/68 (97) 96 Physical Exam General: Patient is sleeping however she is easily aroused and then awake and oriented Skin: Skin in warm, dry and intact. Appropriate color for ethnicity. Nailbeds pink with no cyanosis. HEENT: The head is normocephalic and atraumatic. Conjunctivae are clear without exudates or hemorrhage. Sclera is non-icteric. EOM are intact. No signs of nystagmus. Eyelids are normal in appearance without swelling or lesions. Oral mucosa is pink and moist Neck: The neck is supple with normal range of motion. No JVD. Cardiac: Heart rate and rhythm are normal. No murmurs, gallops, or rubs are auscultated. Respiratory: No signs of respiratory distress. Lung sounds are clear in all lobes bilaterally without rales, ronchi, or wheezes. Abdominal: Abdomen is soft, non-tender without distention. Bowel sounds are present and normoactive in all four quadrants. Extremities: Upper and lower extremities are atraumatic in appearance without deformity or edema. Neurological: The patient is awake, alert and oriented to person, place, and time with normal speech. Speech is clear. There is no facial asymmetry. Review of Systems: REVIEW OF SYSTEMS: No fever, no chills, or fatigue HEENT: No sore throat, no earache, no congestion, no neck pain. Cardiac: No chest pain. No palpitations. Lungs: No shortness of breath, no cough. GI: Positive nausea, positive vomiting, no diarrhea, no constipation, no abdominal pain : No dysuria, frequency, or urgency. No hematuria. Musculoskeletal: No joint pain , no joint swelling, no extremity edema. Skin: No rash, no itching. Neuro: No headache, no dizziness, no weakness Past Medical History PAST MEDICAL HISTORY: Arthritis, Cancer, COPD, High Lipids, HTN Surgical History: Appendectomy, Hysterectomy, Tonsillectomy TECHNOLOGY STRATEGIST History: No Pertinent TECHNOLOGY STRATEGIST History Family History Family History: Family hx of Cancer, Family hx of heart ro Social History Smoker: Non-Smoker Alcohol: Occasionally Drugs: Denies Drug Use Lives In: Home Was a procedure done? Was a procedure done?: No Differential Dx Considerations may include: Differential diagnoses considered include: Abdominal aortic aneurysm, UT, esophageal rupture, intestinal obstruction, mesenteric ischemia, perforated viscus or solid organ rupture, CHF with hepatomegaly, pneumonia, abscess, appendicitis, biliary disease, diverticulitis, gastritis, gastroenteritis, hepatitis, hernia, inflammatory bowel disease, pancreatitis, peptic ulcer disease, urinary tract infection, ureteral colic, constipation, GERD, irritable syndrome, abdominal wall pain, nonspecific abdominal pain, herpes zoster. X-Ray, Labs, Meds, VS Vital Signs Date Time Temp Pulse Resp B/P (MAP) Pulse Ox O2 Delivery O2 Flow Rate FiO2 09/19/24 17:26 67 09/19/24 17:14 97.6 60 18 155/68 (97) 96 Lab Test 09/19/24 20:07 Range/Units White Blood Count 9.5 # 4.4-10.8 10^3/uL Red Blood Count 5.95 H 4.0-5.20 10^6/uL Hemoglobin 15.6 12.2-16.2 g/dL Hematocrit 48.7 #H 36.0-46.0 % Mean Corpuscular Volume 81.8 80.0-100.0 fL Mean Corpuscular Hemoglobin 26.2 L 28.0-32.0 pg Mean Corpuscular Hemoglobin Concent 32.1 32.0-36.0 g/dL Red Cell Distribution Width 28.8 H 11.8-14.3 % Platelet Count 193 140-450 10^3/uL Mean Platelet Volume 9.8 6.9-10.8 fL Neutrophils (%) (Auto) 82.2 H 37.0-80.0 % Lymphocytes (%) (Auto) 9.5 L 10.0-50.0 % Monocytes (%) (Auto) 8.2 0.0-12.0 % Eosinophils (%) (Auto) 0.0 0.0-7.0 % Basophils (%) (Auto) 0.1 0.0-2.0 % Neutrophils # (Auto) 7.8 1.6-8.6 10 ^3/uL Lymphocytes # (Auto) 0.9 0.4-5.4 10 ^3/uL Monocytes # (Auto) 0.8 0-1.3 10 ^3/uL Eosinophils # (Auto) 0 0-0.8 10 ^3/uL Basophils # (Auto) 0 0-0.2 10 ^3/uL Nucleated Red Blood Cells 0.0 % Sodium Level 138 136-145 mmol/L Potassium Level 4.5 3.5-5.1 mmol/L Chloride Level 105 98-107 mmol/L Carbon Dioxide Level 25 20-31 mmol/L Anion Gap 8 5-15 Blood Urea Nitrogen 22 9-23 mg/dL Creatinine 1.03 H 0.550-1.02 mg/dL Glomerular Filtration Rate Calc 52 >90 mL/min BUN/Creatinine Ratio 21.4 H 10.0-20.0 Serum Glucose 98 74-106 mg/dL Lactic Acid Level 1.5 0.4-2.0 mmol/L Calcium Level 9.2 8.7-10.4 mg/dL Total Bilirubin 1.7 H 0.2-1.0 mg/dL Aspartate Amino Transferase (AST) 36 13-40 U/L Alanine Aminotransferase (ALT) 21 7-40 U/L Alkaline Phosphatase 122 H 46-116 U/L Total Protein 5.5 L 5.7-8.2 g/dL Albumin 3.0 L 3.2-4.8 g/dL Current Medications Medications (Trade) Dose Ordered Sig/Yvonne Route Start Time Stop Time Status Last Admin Pantoprazole Sodium (Protonix) 40 mg ONCE ONCE IV 09/19/24 19:15 09/19/24 19:16 DC 09/19/24 23:12 Sodium Chloride 500 ml @ 1,000 mls/hr Q30M ONCE IV 09/19/24 19:15 09/19/24 19:44 DC 09/19/24 23:13 Ondansetron HCl (Zofran) 4 mg ONCE ONCE IV 09/19/24 19:15 09/19/24 19:16 DC 09/19/24 23:[address] [address] Ph: [phone] DIAGNOSTIC IMAGING Diagnostic Imaging Report : [id number] Signed PATIENT: ELO TRAMMELL ACCT: [id number] UNIT: [id number] : 1935 LOC: ER ROOM / BED: / AGE / SEX: 89 / F ADM STATUS: REG ER SERVICE 09 ORDERING PHYSICIAN: BRICE MEDINA MD PROCEDURE(s): ABPL - CT AB PEL WO CON-NO ORAL OR IV REASON: ?Upper GI Bleed, abdominal pain , vomiting ORDER NUMBER(s): [id number], ACCESSION NUMBER(s): [id number] Exam: CT CT AB PEL WO CON-NO ORAL OR IV History: Upper GI Bleed, abdominal pain , vomiting Comparison Study: CT CT AB PEL WO CON-NO ORAL OR IV on DOS: 07/12/24, [facility] on DOS: 07/15/22 Technique: Multidetector spiral CT of the abdomen was performed from lung bases to pubic symphysis. Imaging was performed without IV contrast. Axial, coronal and sagittal multiplanar reformats were obtained from the axial data set by the technologist. Radiation Dose : 1. Abdomen/Pelvis: CTDIvol 5 mGy, DLP 265.8 mGy*cm. Findings: Evaluation of solid organs is limited due to lack of intravenous contrast use. Lung Bases: Right lower lobe opacity may reflect pneumonia or aspiration. Small right and trace left pleural effusions. Liver: The liver is normal in size. No focal lesions. Gallbladder and Biliary Tree: Unremarkable Spleen: Unremarkable Pancreas: The pancreas is grossly normal in appearance. Adrenal Glands: Unremarkable Kidneys: Kidneys are grossly normal without calculi or hydronephrosis. Bladder: Grossly unremarkable for degree of distention. Bowel: The stomach is grossly normal in appearance. Multiple dilated loops of small bowel are seen throughout the left lower quadrant without evidence of a clear transition point . These findings may reflect focal ileus versus low-grade small bowel obstruction. The appendix is not visualized; however, no secondary findings of acute appendicitis identified. Ascites: Small volume abdominopelvic ascites. Lymphadenopathy: No mesenteric, retroperitoneal or periportal lymphadenopathy. Abdominal Wall and Mesentery: Diffuse anasarca. Vasculature: The visualized abdominal aorta is normal in size and caliber. Evaluation of abdominal and pelvic vessels is limited due to lack of intravenous contrast. Pelvic Organs: Unremarkable Musculoskeletal: No aggressive focal bony lesions, acute fractures or dislocation. IMPRESSION: 1. Multiple dilated loops of small bowel are seen throughout the left lower quadrant without evidence of a clear transition point . These findings may reflect focal ileus versus low-grade small bowel obstruction. 2. Right lower lobe opacity may reflect pneumonia or aspiration. 3. Small right and trace left pleural effusions. Radiation optimization: All CT scans at this facility use at least one of these dose optimization techniques: automated exposure control mA and/or kV adjustment per patient size (includes targeted exams where dose is matched to clinical indication) or iterative reconstruction. ATED BY: GAVIN BURNETT MD DICTATED DATE/TIME: 09/19/242016 SIGNED BY: GAVIN BURNETT MD SIGNED DATE/TIME: 09/19/242016 CC: Time of 1ST Reevaluation: 20:43 Reevaluation 1ST: Unchanged Patient Education/Counseling: Diagnosis, Treatment Family Education/Counseling: No Family Present Departure 1 Departure Time of Disposition: 20:43 Impression: Primary Impression: Ileus Disposition: 09 ADMITTED INPATIENT Condition: Stable Comments 89-year-old female who presents to the emergency department with abdominal pain, nausea, vomiting and suspected upper GI bleed. CT scan is concerning for ileus. Patient did have bowel sounds on exam. Given patient's age, comorbidities, concern for ongoing GI bleed. Patient admitted for further treatment, evaluation and monitoring. Extensive evaluation was performed in attempt to identify or rule out: (See differential diagnosis section) The following tests were ordered, and results were reviewed by me: (See diagnostic results section) The following test were independently interpreted by me: N/A I reviewed and agreed with the following test results read by other providers: N/A I reviewed the following notes from the pt's past medical encounters: Hospitalization 07/2024 for CHF and elevated troponins Additional information was gathered from interviewing the following independent historians: EMS Discussion of management or test interpretation with external physician/other qualified health medical care manager: N/A Addressed an acute or chronic illness that poses a threat to life or bodily function: GI bleed, ileus Decision regarding hospitalization or escalation of hospital level of care: Risk and benefits of admission for further treatment of patient's condition was considered. Due to patient's current clinical condition, high risk of decline and poor outcome if discharged and need for further inpatient management and monitoring, patient will be admitted to the hospital. Critical Care Note Critical Care Time?: No Stability Stability form required: No Heart Score Heart Score: Heart Score Response (Comments) Value History N/A 0 EKG N/A 0 Age N/A 0 Risk Factors N/A 0 Troponin N/A 0 Total 0 I personally scribed for BRICE MEDINA MD ([email or web address]) on 09/19/24 at 19:27. Electronically submitted by Estefany Goldstein ([email or web address]). I personally scribed for BRICE MEDINA MD ([email or web address]) on 09/19/24 at 20:31. Electronically submitted by Estefany Goldstein (Appear Here). BRICE MEDINA MD Sep 19, 2024 19:10
--- NOTE | 2024-09-19 20:20 | DVH ---
Exam: CT CT AB PEL WO CON-NO ORAL OR IV History: Upper GI Bleed, abdominal pain , vomiting Comparison Study: CT CT AB PEL WO CON-NO ORAL OR IV on DOS: 07/12/24, [facility] on DOS: 07/15/22 Technique: Multidetector spiral CT of the abdomen was performed from lung bases to pubic symphysis. Imaging was performed without IV contrast. Axial, coronal and sagittal multiplanar reformats were ob tained from the axial data set by the technologist. Radiation Dose : 1. Abdomen/Pelvis: CTDIvol 5 mGy, DLP 265.8 mGy*cm. Findings: Evaluation of solid organs is limited due to lack of intravenous contrast use. Lung Bases: Right lower lobe opacity may reflect pneumonia or aspiration. Small right and trace left pleural effusions. Liver: The liver is normal in size. No focal lesions. Gallbladder and Biliary Tree: Unremarkable Spleen: Unremarkable Pancreas: The pancreas is grossly normal in appearance. Adrenal Glands: Unremarkable Kidneys: Kidneys are grossly normal without calculi or hydronephrosis. Bladder: Grossly unremarkable for degree of distention. Bowel: The stomach is grossly normal in appearance. Multiple dilated loops of small bowel are seen t hroughout the left lower quadrant without evidence of a clear transition point . These findings may r eflect focal ileus versus low-grade small bowel obstruction. The appendix is not visualized; however, no secondary findings of acute appendicitis identified. Ascites: Small volume abdominopelvic ascites. Lymphadenopathy: No mesenteric, retroperitoneal or periportal lymphadenopathy. Abdominal Wall and Mesentery: Diffuse anasarca. Vasculature: The visualized abdominal aorta is normal in size and caliber. Evaluation of abdominal a nd pelvic vessels is limited due to lack of intravenous contrast. Pelvic Organs: Unremarkable Musculoskeletal: No aggressive focal bony lesions, acute fractures or dislocation. IMPRESSION: 1. Multiple dilated loops of small bowel are seen throughout the left lower quadrant without evidenc e of a clear transition point . These findings may reflect focal ileus versus low-grade small bowel o bstruction. 2. Right lower lobe opacity may reflect pneumonia or aspiration. 3. Small right and trace left pleural effusions. Radiation optimization: All CT scans at this facility use at least one of these dose optimization beatriz hniques: automated exposure control mA and/or kV adjustment per patient size (includes targeted exam s where dose is matched to clinical indication) or iterative reconstruction.
[2024-09-19 20:28] LABS: Basophils # (auto) 0 10 ^3/uL (0-0.2); Basophils % (auto) 0.1 % (0.0-2.0); Eosinophils # (auto) 0 10 ^3/uL (0-0.8); Hematocrit 48.7 % (36.0-46.0); Hemoglobin 15.6 g/dL (12.2-16.2); Lymphocytes # (auto) 0.9 10 ^3/uL (0.4-5.4); Lymphocytes % (auto) 9.5 % (10.0-50.0); Mean Corpuscular Hemoglobin 26.2 pg (28.0-32.0); Mean Corpuscular Hgb Conc. 32.1 g/dL (32.0-36.0); Mean Corpuscular Volume 81.8 fL (80.0-100.0); Monocytes # (auto) 0.8 10 ^3/uL (0-1.3); Monocytes % (auto) 8.2 % (0.0-12.0); Neutrophils # (auto) 7.8 10 ^3/uL (1.6-8.6); Neutrophils % (auto) 82.2 % (37.0-80.0); Platelet Count (auto) 193 10^3/uL (140-450); Red Blood Cells 5.95 10^6/uL (4.0-5.20); Red Cell Distribution Width 28.8 % (11.8-14.3); White Blood Cell 9.5 10^3/uL (4.4-10.8)
[2024-09-19 21:01] LABS: Alanine Aminotransferase 21 U/L (7-40); Anion Gap 8 (5-15); Aspartate Aminotransferase 36 U/L (13-40); BUN/Creatinine Ratio 21.4 (10.0-20.0); Blood Urea Nitrogen 22 mg/dL (9-23); Calcium 9.2 mg/dL (8.7-10.4); Carbon Dioxide 25 mmol/L (20-31); Chloride 105 mmol/L (98-107); Glucose 98 mg/dL (74-106); Potassium 4.5 mmol/L (3.5-5.1); Sodium 138 mmol/L (136-145)
[2024-09-19 21:03] LABS: Alkaline Phosphatase 122 U/L (46-116); Bilirubin, Total 1.7 mg/dL (0.2-1.0); Total Protein 5.5 g/dL (5.7-8.2)
[2024-09-19] MEDS ORDERED: ONDANSETRON HCL 4 MG/2 ML VIAL IV PRN (22:00)
[2024-09-19] MEDS ORDERED: ALBUTEROL SULF 2.5 MG/0.5ML(0.5%) NEB SOLN NEB PRN (22:00)
[2024-09-19 22:24] VITALS: BP 155/68; PULSE 65; RESP 18; TEMP 97.6; O2SAT 96
--- NOTE | 2024-09-19 22:38 | DVHHP2 ---
History of Present Illness Reason for Visit: Abdominal pain History of Present Illness 89-year-old female presents for evaluation of abdominal pain. Patient endorses a two day history of lower abdominal pain with associated nausea and episodes of dark emesis. Denies melena. Currently rates the pain in her lower abdomen at 3/10 intensity. Denies diarrhea or constipation. No fever or chills. No other acute complaints reported. Past Medical History Dyslipidemia, hypertension, COPD, cancer and arthritis Past Surgical History Hysterectomy, appendectomy and tonsillectomy Family History Heart disease Smoke: No ALCOHOL: none Drugs: None Lives: with Family Review of Systems Review of Systems Review of systems are currently negative otherwise addressed in HPI. Allergies: Coded Allergies: NO KNOWN ALLERGIES (Verified , 02/17/22) Medications Current Medications Medications Dose Ordered Sig/Yvonne Route Start Time Stop Time Status Last Admin Dose Admin Hydralazine HCl 10 mg Q6HR IV 09/20/24 00:00 Pantoprazole Sodium 40 mg DAILY IV 09/20/24 10:00 Albuterol 2.5 mg Q6HPRN PRN NEB 09/19/24 22:00 Ondansetron HCl 4 mg Q4HP PRN IV 09/19/24 22:00 UNV Morphine Sulfate 2 mg Q4HPRN PRN IV 09/19/24 22:00 Exam Vital Signs Vital Signs Date Time Temp Pulse Resp B/P (MAP) Pulse Ox O2 Delivery O2 Flow Rate FiO2 09/19/24 22:24 97.6 65 18 155/68 96 21 97.6 Exam Gen: 89-year-old female in mild distress Skin: Warm, dry, normal color and texture, no rash. HEENT: Normocephalic atraumatic, mucous membranes moist and pink. Neck: Cervical and supraclavicular nodes normal without enlargement, trachea is midline, thyroid gland is normal without masses. Pulmonary: Clear to auscultation and percussion bilaterally. Cardiac: Regular rate and rhythm. No murmur Abdomen: Soft, nontender, nondistended, bowel sounds present all 4 quadrants, no guarding, no rigidity, no organomegaly. Extremities: No cyanosis, clubbing, no edema Neuro: Cranial nerves II through XII grossly intact, normal affect and speech, no focal motor deficits. Labs/Xrays ORDERING PHYSICIAN: BRICE MEDINA MD PROCEDURE(s): ABPL - CT AB PEL WO CON-NO ORAL OR IV REASON: ?Upper GI Bleed, abdominal pain , vomiting ORDER NUMBER(s): [id number], ACCESSION NUMBER(s): [id number] Exam: CT CT AB PEL WO CON-NO ORAL OR IV History: Upper GI Bleed, abdominal pain , vomiting Comparison Study: CT CT AB PEL WO CON-NO ORAL OR IV on DOS: 07/12/24, [facility] on DOS: 07/15/22 Technique: Multidetector spiral CT of the abdomen was performed from lung bases to pubic symphysis. Imaging was performed without IV contrast. Axial, coronal and sagittal multiplanar reformats were obtained from the axial data set by the technologist. Radiation Dose : 1. Abdomen/Pelvis: CTDIvol 5 mGy, DLP 265.8 mGy*cm. Findings: Evaluation of solid organs is limited due to lack of intravenous contrast use. Lung Bases: Right lower lobe opacity may reflect pneumonia or aspiration. Small right and trace left pleural effusions. Liver: The liver is normal in size. No focal lesions. Gallbladder and Biliary Tree: Unremarkable Spleen: Unremarkable Pancreas: The pancreas is grossly normal in appearance. Adrenal Glands: Unremarkable Kidneys: Kidneys are grossly normal without calculi or hydronephrosis. Bladder: Grossly unremarkable for degree of distention. Bowel: The stomach is grossly normal in appearance. Multiple dilated loops of small bowel are seen throughout the left lower quadrant without evidence of a clear transition point . These findings may reflect focal ileus versus low-grade small bowel obstruction. The appendix is not visualized; however, no secondary findings of acute appendicitis identified. Ascites: Small volume abdominopelvic ascites. Lymphadenopathy: No mesenteric, retroperitoneal or periportal lymphadenopathy. Abdominal Wall and Mesentery: Diffuse anasarca. Vasculature: The visualized abdominal aorta is normal in size and caliber. Evaluation of abdominal and pelvic vessels is limited due to lack of intravenous contrast. Pelvic Organs: Unremarkable Musculoskeletal: No aggressive focal bony lesions, acute fractures or dislocation. IMPRESSION: 1. Multiple dilated loops of small bowel are seen throughout the left lower quadrant without evidence of a clear transition point . These findings may reflect focal ileus versus low-grade small bowel obstruction. 2. Right lower lobe opacity may reflect pneumonia or aspiration. 3. Small right and trace left pleural effusions. Radiation optimization: All CT scans at this facility use at least one of these dose optimization techniques: automated exposure control mA and/or kV adjustment per patient size (includes targeted exams where dose is matched to clinical indication) or iterative reconstruction. Labs Test 09/19/24 20:07 Range/Units White Blood Count 9.5 # 4.4-10.8 10^3/uL Red Blood Count 5.95 H 4.0-5.20 10^6/uL Hemoglobin 15.6 12.2-16.2 g/dL Hematocrit 48.7 #H 36.0-46.0 % Mean Corpuscular Volume 81.8 80.0-100.0 fL Mean Corpuscular Hemoglobin 26.2 L 28.0-32.0 pg Mean Corpuscular Hemoglobin Concent 32.1 32.0-36.0 g/dL Red Cell Distribution Width 28.8 H 11.8-14.3 % Platelet Count 193 140-450 10^3/uL Mean Platelet Volume 9.8 6.9-10.8 fL Neutrophils (%) (Auto) 82.2 H 37.0-80.0 % Lymphocytes (%) (Auto) 9.5 L 10.0-50.0 % Monocytes (%) (Auto) 8.2 0.0-12.0 % Eosinophils (%) (Auto) 0.0 0.0-7.0 % Basophils (%) (Auto) 0.1 0.0-2.0 % Neutrophils # (Auto) 7.8 1.6-8.6 10 ^3/uL Lymphocytes # (Auto) 0.9 0.4-5.4 10 ^3/uL Monocytes # (Auto) 0.8 0-1.3 10 ^3/uL Eosinophils # (Auto) 0 0-0.8 10 ^3/uL Basophils # (Auto) 0 0-0.2 10 ^3/uL Nucleated Red Blood Cells 0.0 % Sodium Level 138 136-145 mmol/L Potassium Level 4.5 3.5-5.1 mmol/L Chloride Level 105 98-107 mmol/L Carbon Dioxide Level 25 20-31 mmol/L Anion Gap 8 5-15 Blood Urea Nitrogen 22 9-23 mg/dL Creatinine 1.03 H 0.550-1.02 mg/dL Glomerular Filtration Rate Calc 52 >90 mL/min BUN/Creatinine Ratio 21.4 H 10.0-20.0 Serum Glucose 98 74-106 mg/dL Lactic Acid Level 1.5 0.4-2.0 mmol/L Calcium Level 9.2 8.7-10.4 mg/dL Total Bilirubin 1.7 H 0.2-1.0 mg/dL Aspartate Amino Transferase (AST) 36 13-40 U/L Alanine Aminotransferase (ALT) 21 7-40 U/L Alkaline Phosphatase 122 H 46-116 U/L Total Protein 5.5 L 5.7-8.2 g/dL Albumin 3.0 L 3.2-4.8 g/dL Assessment/Plan Assessment/Plan Assessment Acute abdominal pain Rule out small bowel obstruction ? Upper GI bleed Cachexia Plan Admit the patient to Med surge to the hospitalist NPO Maintenance IV fluids Surgical consultation Small-bowel follow-through pending Gastric occult blood pending Continue treatment per orders. Plan discussed with: Patient My Orders Orders - PRINCE DENT Procedure Category Date Status Time Gastric Occult Blood LAB 09/19/24 Logged 22:00 PTPTT LAB 09/19/24 Logged 22:00 * Surgical Consult CONS 09/19/24 Transmitted Hydralazine Injection PHA 09/20/24 In Process (Apresoline Inject 00:00 Pantoprazole PHA 09/20/24 In Process (Protonix) 10:00 Albuterol Medneb PHA 09/19/24 In Process (Ventolin Medneb) 22:00 Type And Screen BBK 09/19/24 Logged 22:00 Basic Metabolic Panel LAB 09/20/24 Verified 04:00 Admit ADMIT 09/19/24 Transmitted 22:00 Ondansetron Hcl PHA 09/19/24 Pending (Zofran) 22:00 Complete Blood Count LAB 09/20/24 Verified 04:00 Npo (Nothing By DIET 09/20/24 Transmitted Mouth) Diet Breakfast Condition: Stable BRANDIE 09/19/24 In Process 22:00 Bedrest With Bathroom BRANDIE 09/19/24 In Process Privileg 22:00 Morphine Sulfate PHA 09/19/24 In Process Injection 22:00 Date of Service: Sep 19, 2024 Billing Provider: PRINCE DENT Common Visit Codes: [id number] INP/OBS CARE (HIGH) PRINCE DENT [facility] Sep 19, 2024 22:38
[2024-09-19 22:57] LABS: INR 1.29 (0.9-1.15); Partial Thromboplastin Time 28.9 SEC (24.5-34.5); Prothrombin Time 13.3 sec (9.3-11.8)
[2024-09-19] MEDS: PANTOPRAZOLE 40 MG/10 ML VIAL INJ IV ONE (23:12)
[2024-09-19] MEDS: ONDANSETRON HCL 4 MG/2 ML VIAL IV ONE (23:13)
[2024-09-19] MEDS: SODIUM CHLORIDE 0.9% 500 ML IV ONE (23:13)
[2024-09-19 23:22] VITALS: PULSE 57; RESP 22; O2SAT 91
[2024-09-19] MEDS: CALCIUM CARB 500 MG CHEW TAB PO ONE (23:45)
[2024-09-20] VITALS (8 sets, daily range): BP systolic 117–143; BP diastolic 41–67; PULSE 60–70; RESP 16–20; TEMP 97.4–98.8; O2SAT 96–100
[2024-09-20] MEDS: hydrALAZINE HCL 20 MG/ML VL IV SCH (00:08)
[2024-09-20] MEDS ORDERED: ATOR20TA PO (04:14)
[2024-09-20] MEDS ORDERED: GABA-1308 PO (04:14)
[2024-09-20 07:25] LABS: Chloride 106 mmol/L (98-107); Potassium 4.4 mmol/L (3.5-5.1); Sodium 139 mmol/L (136-145)
[2024-09-20 07:26] LABS: Anion Gap 9 (5-15); Carbon Dioxide 24 mmol/L (20-31)
[2024-09-20 07:31] LABS: BUN/Creatinine Ratio 19.1 (10.0-20.0); Blood Urea Nitrogen 18 mg/dL (9-23); Glucose 77 mg/dL (74-106)
[2024-09-20 07:35] LABS: Basophils # (auto) 0 10 ^3/uL (0-0.2); Eosinophils # (auto) 0 10 ^3/uL (0-0.8); Lymphocytes # (auto) 0.9 10 ^3/uL (0.4-5.4); Monocytes # (auto) 0.9 10 ^3/uL (0-1.3)
[2024-09-20 07:44] LABS: Basophils % (auto) 0.1 % (0.0-2.0); Eosinophils % (auto) 0.1 % (0.0-7.0); Hematocrit 50.3 % (36.0-46.0); Hemoglobin 16.1 g/dL (12.2-16.2); Lymphocytes % (auto) 9.5 % (10.0-50.0); Mean Corpuscular Hemoglobin 26.4 pg (28.0-32.0); Mean Corpuscular Hgb Conc. 32.1 g/dL (32.0-36.0); Mean Corpuscular Volume 82.5 fL (80.0-100.0); Neutrophils # (auto) 7.9 10 ^3/uL (1.6-8.6); Neutrophils % (auto) 81.3 % (37.0-80.0); Platelet Count (auto) 202 10^3/uL (140-450); Red Blood Cells 6.09 10^6/uL (4.0-5.20); Red Cell Distribution Width 29.5 % (11.8-14.3); White Blood Cell 9.7 10^3/uL (4.4-10.8)
[2024-09-20 08:48] LABS: Platelet Estimate Adequate
[2024-09-20 08:50] LABS: Anisocytosis Marked
[2024-09-20 08:52] LABS: Large Platelets FEW
[2024-09-20] MEDS: PANTOPRAZOLE 40 MG/10 ML VIAL INJ IV SCH (09:03)
--- NOTE | 2024-09-20 09:19 | DVH ---
CHEST RADIOGRAPH Indication: pneumonia Technique: Single frontal view of the chest was obtained Comparison: XY CHEST PORTABLE on DOS: 07/12/24, XY CHEST XRAY 1 VIEW on DOS: 12/22/23, XY CHEST PORTABL E on DOS: 12/20/23, CHEST PORTABLE on DOS: 07/14/22, CXRP on DOS: 07/14/22 FINDINGS: Lines and Tubes: None Lungs: No focal consolidation. Pleura: No effusion. No pneumothorax. Cardiomediastinal contours: Unremarkable Bones: No acute osseous abnormality. IMPRESSION: No acute cardiopulmonary disease.
[2024-09-20] MEDS: GASTROGRAFIN 30 ML SOL ONE (11:55)
[2024-09-20] MEDS: MORPHINE SULFATE INJ 2 MG/ml SYRG IV PRN (16:29)
--- NOTE | 2024-09-20 16:44 | DVHPN2 ---
Subjective Seen and examined at bedside, I had a lengthy discussion with the patients son. Explained SBO. Does NOT want any surgery. Prefer hospice/palliative care. Changes from previous H/P or p: No Changes Objective Vitals Vital Signs Date Time Temp Pulse Resp B/P (MAP) Pulse Ox O2 Delivery O2 Flow Rate FiO2 09/20/24 16:29 64 20 117/41 09/20/24 13:00 96 09/20/24 08:37 Nasal Cannula* 1 24 09/20/24 05:00 98.2 98.2 Intake/Output Intake and Output 09/20/24 07:00 Intake Total 600 ml Balance 600 ml Intake Oral 100 ml IV Total 500 ml # Voids 1 Exam Gen: in bed cachectic Cvs: N S1/S2, RRR Resp: Diminished Abd: Thin, Tenderness Hvac Maintenance Technician: AAO x 3 Medications Current Medications Medications Dose Ordered Sig/Yvonne Route Start Time Stop Time Status Last Admin Dose Admin Hydralazine HCl 10 mg Q6HR IV 09/20/24 00:00 09/20/24 00:08 10 MG Pantoprazole Sodium 40 mg DAILY IV 09/20/24 10:00 09/20/24 09:03 40 MG Albuterol 2.5 mg Q6HPRN PRN NEB 09/19/24 22:00 Ondansetron HCl 4 mg Q4HP PRN IV 09/19/24 22:00 Hold Morphine Sulfate 2 mg Q4HPRN PRN IV 09/19/24 22:00 09/20/24 16:29 2 MG Piperacillin Sod/ Tazobactam Sod 100 ml @ 25 mls/hr Q8HR IV 09/20/24 22:00 UNV Laboratory Results Laboratory Tests 09/20/24 06:06 Chemistry Test 09/19/24 20:07 09/20/24 06:06 Albumin 3.0 g/dL (3.2-4.8) L Calcium Level 9.2 mg/dL (8.7-10.4) 9.0 mg/dL (8.7-10.4) Total Protein 5.5 g/dL (5.7-8.2) L Coagulation Test 09/19/24 22:32 Prothrombin Time 13.3 sec (9.3-11.8) H Prothrombin Time INR 1.29 (0.9-1.15) H Activated Partial Thromboplast Time 28.9 SEC (24.5-34.5) LFT Test 09/19/24 20:07 Alanine Aminotransferase (ALT) 21 U/L (7-40) Alkaline Phosphatase 122 U/L (46-116) H Aspartate Amino Transferase (AST) 36 U/L (13-40) Total Bilirubin 1.7 mg/dL (0.2-1.0) H Microbiology Microbiology Date/Time Source Procedure Growth Status 09/20/24 01:14 Nose MRSA Screen - Final Complete Assessment/Plan Assessment/Plan # Small Bowel Obstruction - NGT - Surgical Cx - Family does not want any surgery but will get opinion # Aspiration PNA - Abx - NGT # Chronic Systolic CHF EF 20% - Monitor for fluid overload Plan discussed with: Patient My Orders Orders - BABS FRANKS MD Procedure Category Date Status Time Insert Trinidad Catheter BRANDIE 09/20/24 In Process 14:17 Piperacillin-Tazob PHA 09/20/24 Logged 3.375gm (Zosyn 3.375g 22:00 Ngt/Ogt ED NURSING 09/20/24 Transmitted Ng To Lis BRANDIE 09/20/24 In Process 16:29 NS PHA 09/20/24 Verified 16:45 Date of Service: Sep 20, 2024 Billing Provider: BABS FRANKS MD Common Visit Codes: [id number] INP/OBS CARE(HIGH) BABS FRANKS MD Sep 20, 2024 16:44
[2024-09-20] MEDS: SODIUM CHLORIDE 0.9% 1,000 ML IV SCH (16:45)
--- NOTE | 2024-09-20 17:02 | DVH ---
Procedure: XY SMALL BOWEL SERIES-W GASTROGRA Reason for study/Clinical History: r/o SBO Comparison Study: None available at time of dictation. Technique: Single contrast small bowel series performed. FINDINGS/IMPRESSION: Initial centralized traffic control operator view of the abdomen and pelvis appears demonstrates no acute process. Contrast is non identified within the colon by 3 hours. This represents and abnormal. Consider foll ow-up study to determine if contrast does reach the colon at a later time. HS:Y
[2024-09-20 18:28] LABS: Urine Bacteria None Seen /hpf (None Seen)
[2024-09-20 19:13] LABS: Urine Blood Negative /uL (Negative); Urine Clarity Clear (Clear); Urine Color Yellow (Yellow); Urine Hyaline Cast FEW /lpf (0 - 2); Urine Protein, UAD Negative (Negative); Urine Specific Gravity 1.023 (1.001-1.035); Urine Squamous Epithelial Cell FEW /hpf (<5); Urine Urobilinogen Normal (Negative); Urine WBC 1 /hpf (0 - 5)
--- NOTE | 2024-09-20 19:40 | DVHINCON2 ---
Date Seen: Sep 20, 2024 Referring Physician Macarena Reason for Consultation Ileus versus bowel obstruction History of Present Illness 89-year-old female presents for evaluation of abdominal pain. Patient endorses a two day history of lower abdominal pain with associated nausea and episodes of dark emesis. Denies melena. Currently rates the pain in her lower abdomen at 3/10 intensity. Denies diarrhea or constipation. No fever or chills. No other acute complaints reported. Patient states she had been treated for colon cancer in 2010. She states she developed nausea after having finished 2 days ago. Since admission she has had no further nausea. She has had not had a bowel movement in over 48 hours. Currently had a small-bowel follow-through which at the present time contrast does not made it through the colon after 3 hours. Pending further study in the morning. Patient currently is not nauseous and not passing gas is thirsty. Patient is refusing a surgery at this point in. Past Medical History Arthritis Cancer, COPD, High Lipids, HTN Past Surgical History Appendectomy, Hysterectomy, Tonsillectomy Family History: Cardiovascular disease G8 FATHER G8 SISTER Colon cancer G8 MOTHER Ischemic heart disease G8 FATHER G8 SISTER Malignant neoplasm of breast AUNT Allergies: Coded Allergies: NO KNOWN ALLERGIES (Verified , 02/17/22) Home Meds Active Scripts Furosemide (Furosemide) 20 Mg Tab, 20 MG PO DAILY for 30 Days, #30 TAB Prov:JU GAITAN MD 07/16/24 Apixaban Base (ELIQUIS) 2.5 Mg Tab, 2.5 MG PO BID for 30 Days, #60 TAB Prov:RAY DOWLING RESIDENT 12/23/23 Albuterol Sulfate (VENTOLIN MDI) 90 Mcg Ih, 90 MCG IN Q8HPRN PRN for 30 Days, #5 INH Prov:BABS FRANKS MD 05/15/21 Reported Medications Gabapentin (Gabapentin) 100 Mg Cap, 200 MG PO DAILY for 30 Days, MG 09/20/24 Atorvastatin Calcium (Lipitor) 20 Mg Tab, 1 TAB PO HS, #90 TAB 1 Refill 09/20/24 Hxjaicqsnch-Xxdajiyggtta-Kvmib (Trelegy Ellipta 100-62.5-25 Mcg/INH) 1 Aer Aer, 1 PUFF IN DAILY for 30 Days, #1 07/14/24 Pantoprazole Sodium Sesquihydr (Protonix) 40 Mg Tab, 1 TAB PO DAILY for 90 Days, #90 07/14/24 Docusate Sodium (Docusate Sodium) 100 Mg Tab, 100 MG PO DAILY, TAB 01/13/23 Crumrod-3 Fatty Acids (FISH OIL) 1,000 Mg Cap, 1000 MG PO HS for SUPPLEMENT, CAP 02/17/22 Calcium Citrate-Vitamin D (Calcitrate/Vitamin D) Vit D Tab, 1 D PO HS for SUPPLEMENT, TAB 02/17/22 B Complex W/ C (B-Complex Plus Vitamin C) 1 Tab Tab, 1 TAB PO HS for SUPPLEMENT, TAB 02/17/22 Metoprolol Succinate (Metoprolol Succinate Er) 25 Mg Tab, 1 TAB PO DAILY, #30 TAB 0 Refills 01/05/21 Multiple Vitamin (Multivitamins) Cap, 1 CAP PO DAILY, #30 CAP 0 Refills 01/05/21 Folic Acid (Folic Acid) 800 Mcg Cap, 800 MCG PO DAILY, CAP 09/21/17 Cholecalciferol (Gnp Vitamin D) 1,000 Unit Tab, 1 TAB PO DAILY, #30 TAB 5 Refills 09/21/17 Current Medications Current Medications Medications (Trade) Dose Ordered Sig/Yvonne Route PRN Reason Start Time Stop Time Status Last Admin Hydralazine HCl (Apresoline Injection) 10 mg Q6HR IV 09/20/24 00:00 09/20/24 00:08 Pantoprazole Sodium (Protonix) 40 mg DAILY IV 09/20/24 10:00 09/20/24 09:03 Albuterol (Ventolin Medneb) 2.5 mg Q6HPRN PRN NEB SHORTNESS OF BREATH 09/19/24 22:00 Ondansetron HCl (Zofran) 4 mg Q4HP PRN IV NAUSEA / VOMITING 09/19/24 22:00 Hold Morphine Sulfate 2 mg Q4HPRN PRN IV SEVERE PAIN (7-10 PAIN SCALE) 09/19/24 22:00 09/20/24 16:29 Piperacillin Sod/ Tazobactam Sod 100 ml @ 25 mls/hr Q8HR IV 09/20/24 22:00 Sodium Chloride 1,000 ml @ 75 mls/hr [id number] IV 09/20/24 16:45 09/20/24 16:45 Review of Systems REVIEW OF SYSTEMS: No fever, no chills, or fatigue HEENT: No sore throat, no earache, no congestion, no neck pain. Cardiac: No chest pain. No palpitations. Lungs: No shortness of breath, no cough. GI: Positive nausea, positive vomiting, no diarrhea, no constipation, no abdominal pain : No dysuria, frequency, or urgency. No hematuria. Musculoskeletal: No joint pain , no joint swelling, no extremity edema. Skin: No rash, no itching. Neuro: No headache, no dizziness, no weakness Vital Signs Vital Signs Date Time Temp Pulse Resp B/P (MAP) Pulse Ox O2 Delivery O2 Flow Rate FiO2 09/20/24 18:00 132/48 09/20/24 17:00 97.4 70 20 96 97.4 09/20/24 08:37 Nasal Cannula* 1 24 Physical Exam Head eyes ears nose and throat exam eyes are nonicteric conjunctiva is pink neck was supple no JVD no lymphadenopathy no carotid bruits lungs are clear to auscultation heart was regular rate and rhythm abdomen is soft minimal distention and nontender with no pulsatile abdominal masses lower extremities palpable femoral pulses palpable pedal pulses bilaterally. Labs/Diagnostic Data Labs Test 09/20/24 18:20 09/20/24 06:06 09/19/24 22:32 09/19/24 20:07 Range/Units Urine Color Yellow Yellow Urine Clarity Clear Clear Urine pH 5.0 5.0-9.0 Urine Specific [place] 1.023 1.001-1.035 Urine Protein Negative Negative Urine Ketones Negative Negative Urine Blood Negative Negative /uL Urine Nitrite Negative Negative Urine Bilirubin Negative Negative Urine Urobilinogen Normal Negative mg/dL Urine Leukocyte Esterase Negative Negative /uL Urine RBC 1 0 - 4 /hpf Urine WBC 1 0 - 5 /hpf Urine Squamous Epithelial Cells Few <5 /hpf Urine Bacteria None seen None Seen /hpf Urine Hyaline Casts Few 0 - 2 /lpf Urine Glucose 2+ H Normal mg/dL White Blood Count 9.7 4.4-10.8 10^3/uL Red Blood Count 6.09 H 4.0-5.20 10^6/uL Hemoglobin 16.1 12.2-16.2 g/dL Hematocrit 50.3 H 36.0-46.0 % Mean Corpuscular Volume 82.5 80.0-100.0 fL Mean Corpuscular Hemoglobin 26.4 L 28.0-32.0 pg Mean Corpuscular Hemoglobin Concent 32.1 32.0-36.0 g/dL Red Cell Distribution Width 29.5 H 11.8-14.3 % Platelet Count 202 140-450 10^3/uL Mean Platelet Volume 10.5 6.9-10.8 fL Neutrophils (%) (Auto) 81.3 H 37.0-80.0 % Lymphocytes (%) (Auto) 9.5 L 10.0-50.0 % Monocytes (%) (Auto) 9.0 0.0-12.0 % Eosinophils (%) (Auto) 0.1 0.0-7.0 % Basophils (%) (Auto) 0.1 0.0-2.0 % Neutrophils # (Auto) 7.9 1.6-8.6 10 ^3/uL Lymphocytes # (Auto) 0.9 0.4-5.4 10 ^3/uL Monocytes # (Auto) 0.9 0-1.3 10 ^3/uL Eosinophils # (Auto) 0 0-0.8 10 ^3/uL Basophils # (Auto) 0 0-0.2 10 ^3/uL Nucleated Red Blood Cells 0.0 % Platelet Estimate Adequate Large Platelets Few Anisocytosis (manual) Marked Sodium Level 139 136-145 mmol/L Potassium Level 4.4 3.5-5.1 mmol/L Chloride Level 106 98-107 mmol/L Carbon Dioxide Level 24 20-31 mmol/L Anion Gap 9 5-15 Blood Urea Nitrogen 18 9-23 mg/dL Creatinine 0.94 0.550-1.02 mg/dL Glomerular Filtration Rate Calc 58 >90 mL/min BUN/Creatinine Ratio 19.1 10.0-20.0 Serum Glucose 77 74-106 mg/dL Calcium Level 9.0 8.7-10.4 mg/dL Prothrombin Time 13.3 H 9.3-11.8 sec Prothrombin Time INR 1.29 H 0.9-1.15 Activated Partial Thromboplast Time 28.9 24.5-34.5 SEC Lactic Acid Level 1.5 0.4-2.0 mmol/L Total Bilirubin 1.7 H 0.2-1.0 mg/dL Aspartate Amino Transferase (AST) 36 13-40 U/L Alanine Aminotransferase (ALT) 21 7-40 U/L Alkaline Phosphatase 122 H 46-116 U/L Total Protein 5.5 L 5.7-8.2 g/dL Albumin 3.0 L 3.2-4.8 g/dL Microbiology Date/Time Source Procedure Growth Status 09/20/24 01:14 Nose MRSA Screen - Final Complete PROCEDURE(s): SMBG - SMALL BOWEL SERIES-W GASTROGRA REASON: r/o SBO ORDER NUMBER(s): [id number], ACCESSION NUMBER(s): [id number] Procedure: XY SMALL BOWEL SERIES-W GASTROGRA Reason for study/Clinical History: r/o SBO Comparison Study: None available at time of dictation. Technique: Single contrast small bowel series performed. FINDINGS/IMPRESSION: Initial special delivery clerk view of the abdomen and pelvis appears demonstrates no acute process. Contrast is non identified within the colon by 3 hours. This represents and abnormal. Consider follow-up study to determine if contrast does reach the colon at a later time. PROCEDURE(s): ABPL - CT AB PEL WO CON-NO ORAL OR IV REASON: ?Upper GI Bleed, abdominal pain , vomiting ORDER NUMBER(s): [id number], ACCESSION NUMBER(s): [id number] Exam: CT CT AB PEL WO CON-NO ORAL OR IV History: Upper GI Bleed, abdominal pain , vomiting Comparison Study: CT CT AB PEL WO CON-NO ORAL OR IV on DOS: 07/12/24, [facility] on DOS: 07/15/22 Technique: Multidetector spiral CT of the abdomen was performed from lung bases to pubic symphysis. Imaging was performed without IV contrast. Axial, coronal and sagittal multiplanar reformats were obtained from the axial data set by the technologist. Radiation Dose : 1. Abdomen/Pelvis: CTDIvol 5 mGy, DLP 265.8 mGy*cm. Findings: Evaluation of solid organs is limited due to lack of intravenous contrast use. Lung Bases: Right lower lobe opacity may reflect pneumonia or aspiration. Small right and trace left pleural effusions. Liver: The liver is normal in size. No focal lesions. Gallbladder and Biliary Tree: Unremarkable Spleen: Unremarkable Pancreas: The pancreas is grossly normal in appearance. Adrenal Glands: Unremarkable Kidneys: Kidneys are grossly normal without calculi or hydronephrosis. Bladder: Grossly unremarkable for degree of distention. Bowel: The stomach is grossly normal in appearance. Multiple dilated loops of small bowel are seen throughout the left lower quadrant without evidence of a clear transition point . These findings may reflect focal ileus versus low-grade small bowel obstruction. The appendix is not visualized; however, no secondary findings of acute appendicitis identified. Ascites: Small volume abdominopelvic ascites. Lymphadenopathy: No mesenteric, retroperitoneal or periportal lymphadenopathy. Abdominal Wall and Mesentery: Diffuse anasarca. Vasculature: The visualized abdominal aorta is normal in size and caliber. Evaluation of abdominal and pelvic vessels is limited due to lack of intravenous contrast. Pelvic Organs: Unremarkable Musculoskeletal: No aggressive focal bony lesions, acute fractures or dislocation. IMPRESSION: 1. Multiple dilated loops of small bowel are seen throughout the left lower quadrant without evidence of a clear transition point . These findings may reflect focal ileus versus low-grade small bowel obstruction. 2. Right lower lobe opacity may reflect pneumonia or aspiration. 3. Small right and trace left pleural effusions. Radiation optimization: All CT scans at this facility use at least one of these dose optimization techniques: automated exposure control mA and/or kV adjustment per patient size (includes targeted exams where dose is matched to clinical indication) or iterative reconstruction. Assessment 89-year-old with ileus versus bowel obstruction At this point in time is refusing any surgery and would request hospice. We will continue to follow the bowel exam as well as followed the small bowel follow-through in the morning. Continue to optimize electrolytes and IV fluids. Plan/Recommendation 89-year-old with ileus versus bowel obstruction At this point in time is refusing any surgery and would request hospice. We will continue to follow the bowel exam as well as followed the small bowel follow-through in the morning. Continue to optimize electrolytes and IV fluids. Plan discussed with: Patient Date of Service: Sep 20, 2024 Billing Provider: MATA PABLO Jr., MD Common Visit Codes: [id number] INP/OBS CARE (HIGH) Consultation Codes: [id number] CONSULT <60MIN MATA PABLO Jr., MD Sep 20, 2024 19:40
[2024-09-20] MEDS: PIPERACILLIN-TAZOB 3.375GM 100 ML IV SCH (22:41)
[2024-09-21] VITALS (7 sets, daily range): BP systolic 116–151; BP diastolic 53–59; PULSE 69–90; RESP 16–21; TEMP 36.9; O2SAT 93–99
--- NOTE | 2024-09-21 06:54 | DVH ---
CHEST RADIOGRAPH Indication: ng tube placement Technique: Single frontal view of the chest was obtained Comparison: XY CHEST PORTABLE on DOS: 09/20/24 FINDINGS: Lines and Tubes: The enteric tube terminates in the stomach. Lungs: Right basilar opacity. Pleura: No effusion. No pneumothorax. Cardiomediastinal contours: Unremarkable Bones: No acute osseous abnormality. IMPRESSION: Right basilar opacity representing atelectasis or pneumonia.
--- NOTE | 2024-09-21 07:27 | DVHPN2 ---
Progress Note Date Seen: Sep 21, 2024 Has the PT tested + for MRSA If YES, has PT been informed?: No Medical Necessity Reason Pt with a Central, PICC or Fol: No The following are medically ne: Melo Catheter Reason for melo catheter: Strict I&O Subjective Patient reports: Feels worse (overnight ngt place and clamped. pt. currently feeling more discomfort in abd. no nausea or vomiting) Changes from previous H/P or p: No Changes Objective vital signs Vital Sign Date Time Temp Pulse Resp B/P (MAP) Pulse Ox O2 Delivery O2 Flow Rate FiO2 09/21/24 05:28 147/54 09/21/24 05:00 97.9 69 16 97 97.9 09/20/24 20:00 Nasal Cannula* 2 28 Total Intake and Output 09/20/24 09/20/24 09/21/24 15:00 23:00 07:00 Intake Total 100 ml Output Total 1 ml 100 ml Balance -1 ml 0 ml medications Current Medications Medications Dose Ordered Sig/Yvonne Route Start Time Stop Time Status Last Admin Dose Admin Hydralazine HCl 10 mg Q6HR IV 09/20/24 00:00 09/21/24 05:28 10 MG Pantoprazole Sodium 40 mg DAILY IV 09/20/24 10:00 09/20/24 09:03 40 MG Albuterol 2.5 mg Q6HPRN PRN NEB 09/19/24 22:00 Ondansetron HCl 4 mg Q4HP PRN IV 09/19/24 22:00 Hold Morphine Sulfate 2 mg Q4HPRN PRN IV 09/19/24 22:00 09/20/24 16:29 2 MG Piperacillin Sod/ Tazobactam Sod 100 ml @ 25 mls/hr Q8HR IV 09/20/24 22:00 09/21/24 05:27 25 MLS/HR Sodium Chloride 1,000 ml @ 75 mls/hr [id number] IV 09/20/24 16:45 09/20/24 16:45 75 MLS/HR Examination: ABDOMEN:Abnormal (mild distended. generalized tenderness. ngt attached to wall suction with gastrograffin returning into the canister ) laboratory and microbiology Laboratory Tests 09/20/24 06:06 Test 09/20/24 06:06 Range/Units Serum Glucose 77 74-106 mg/dL Microbiology Date/Time Source Procedure Growth Status 09/20/24 01:14 Nose MRSA Screen - Final Complete Labs and/or images reviewed: Labs reviewed by me, Image(s) reviewed by me (ngt. clamped with gastrograffin in stomach) Problem List/Assessment/Plan Problem List/Assessment/Plan Bowel obstruction vs. ileus Cont. NGT Fluid resuscitation check am labs discussed with nurse and Dr. south Plan discussed with: Patient MATA PABLO Jr., MD Sep 21, 2024 07:27
--- NOTE | 2024-09-21 11:16 | DVHDS2 ---
Discharge Summary Date of Admission Sep 19, 2024 at 22:00 Date of Discharge: Sep 21, 2024 Admitting Diagnosis Small Bowel Obstruction Labs/Diagnostic Data: Laboratory Results Test 09/20/24 18:20 09/20/24 06:06 09/19/24 22:32 09/19/24 20:07 Urine Color Yellow (Yellow) Urine Clarity Clear (Clear) Urine pH 5.0 (5.0-9.0) Urine Specific [place] 1.023 (1.001-1.035) Urine Protein Negative (Negative) Urine Ketones Negative (Negative) Urine Blood Negative /uL (Negative) Urine Nitrite Negative (Negative) Urine Bilirubin Negative (Negative) Urine Urobilinogen Normal mg/dL (Negative) Urine Leukocyte Esterase Negative /uL (Negative) Urine RBC 1 /hpf (0 - 4) Urine WBC 1 /hpf (0 - 5) Urine Squamous Epithelial Cells Few /hpf (<5) Urine Bacteria None seen /hpf (None Seen) Urine Hyaline Casts Few /lpf (0 - 2) Urine Glucose 2+ mg/dL (Normal) White Blood Count 9.7 10^3/uL (4.4-10.8) Red Blood Count 6.09 10^6/uL (4.0-5.20) Hemoglobin 16.1 g/dL (12.2-16.2) Hematocrit 50.3 % (36.0-46.0) Mean Corpuscular Volume 82.5 fL (80.0-100.0) Mean Corpuscular Hemoglobin 26.4 pg (28.0-32.0) Mean Corpuscular Hemoglobin Concent 32.1 g/dL (32.0-36.0) Red Cell Distribution Width 29.5 % (11.8-14.3) Platelet Count 202 10^3/uL (140-450) Mean Platelet Volume 10.5 fL (6.9-10.8) Neutrophils (%) (Auto) 81.3 % (37.0-80.0) Lymphocytes (%) (Auto) 9.5 % (10.0-50.0) Monocytes (%) (Auto) 9.0 % (0.0-12.0) Eosinophils (%) (Auto) 0.1 % (0.0-7.0) Basophils (%) (Auto) 0.1 % (0.0-2.0) Neutrophils # (Auto) 7.9 10 ^3/uL (1.6-8.6) Lymphocytes # (Auto) 0.9 10 ^3/uL (0.4-5.4) Monocytes # (Auto) 0.9 10 ^3/uL (0-1.3) Eosinophils # (Auto) 0 10 ^3/uL (0-0.8) Basophils # (Auto) 0 10 ^3/uL (0-0.2) Nucleated Red Blood Cells 0.0 % Platelet Estimate Adequate Large Platelets Few Anisocytosis (manual) Marked Sodium Level 139 mmol/L (136-145) Potassium Level 4.4 mmol/L (3.5-5.1) Chloride Level 106 mmol/L (98-107) Carbon Dioxide Level 24 mmol/L (20-31) Anion Gap 9 (5-15) Blood Urea Nitrogen 18 mg/dL (9-23) Creatinine 0.94 mg/dL (0.550-1.02) Glomerular Filtration Rate Calc 58 mL/min (>90) BUN/Creatinine Ratio 19.1 (10.0-20.0) Serum Glucose 77 mg/dL (74-106) Calcium Level 9.0 mg/dL (8.7-10.4) Prothrombin Time 13.3 sec (9.3-11.8) Prothrombin Time INR 1.29 (0.9-1.15) Activated Partial Thromboplast Time 28.9 SEC (24.5-34.5) Lactic Acid Level 1.5 mmol/L (0.4-2.0) Total Bilirubin 1.7 mg/dL (0.2-1.0) Aspartate Amino Transferase (AST) 36 U/L (13-40) Alanine Aminotransferase (ALT) 21 U/L (7-40) Alkaline Phosphatase 122 U/L (46-116) Total Protein 5.5 g/dL (5.7-8.2) Albumin 3.0 g/dL (3.2-4.8) Other Laboratory Tests 09/20/24 06:06 Brief Hx & Hospital Course: 89-year-old female presents for evaluation of abdominal pain. Patient endorses a two day history of lower abdominal pain with associated nausea and episodes of dark emesis. Denies melena. Currently rates the pain in her lower abdomen at 3/10 intensity. Denies diarrhea or constipation. No fever or chills. No other acute complaints reported. Patient states she had been treated for colon cancer in 2010. She states she developed nausea after having finished 2 days ago. Since admission she has had no further nausea. She has had not had a bowel movement in over 48 hours. Currently had a small-bowel follow-through which at the present time contrast does not made it through the colon after 3 hours. Pending further study in the morning. Patient currently is not nauseous and not passing gas is thirsty. Patient is refusing a surgery at this point in. Patient was made NPO with NGT. Patient and son do NOT want any surgical intervention, wish to be discharged home at [facility] with hospice. Patient also had a cold left leg, no intervention wanted, still wants to be discharged with hospice. Condition at Discharge: Poor Final Diagnosis/Problems List # Small Bowel Obstruction # Ischemic Leg # Aspiration PNA - Abx - NGT # Chronic Systolic CHF EF 20% - Monitor for fluid overload Discharge Disposition: Hospice - Home Discharge Statement: "Patient was advised to return to the ER or call 911 if any headaches, dizziness, shortness of breath, chest pain, abdominal pain, bleeding, fevers, or worsening of medical condition. Patient was counseled about treatment plan, medications, possible side effects, patientverbalized understanding. All questions were answered to the best of my ability. This discharge took greater then 30 minutes in planning, reviewing documentation, counseling the patient, and discussing with other team members." ASSESSMENT ASSESSMENT Assessment Date of Service: Sep 21, 2024 Billing Provider: BABS FRANKS MD Common Visit Codes: [id number] DISCH DAY >30min BABS FRANKS MD Sep 21, 2024 11:16
--- NOTE | 2024-09-21 12:58 | DVHPN2 ---
Progress Note Date Seen: Sep 21, 2024 Has the PT tested + for MRSA If YES, has PT been informed?: No Medical Necessity Reason Pt with a Central, PICC or Fol: No The following are medically ne: Melo Catheter Reason for melo catheter: Strict I&O Objective vital signs Vital Sign Date Time Temp Pulse Resp B/P (MAP) Pulse Ox O2 Delivery O2 Flow Rate FiO2 09/21/24 12:47 96.0 75 18 151/58 (89) 98 96.0 09/21/24 09:44 Room Air 09/21/24 09:44 0 21 Total Intake and Output 09/20/24 09/20/24 09/21/24 15:00 23:00 07:00 Intake Total 100 ml Output Total 1 ml 100 ml Balance -1 ml 0 ml medications Current Medications Medications Dose Ordered Sig/Yvonne Route Start Time Stop Time Status Last Admin Dose Admin Hydralazine HCl 10 mg Q6HR IV 09/20/24 00:00 09/21/24 05:28 10 MG Pantoprazole Sodium 40 mg DAILY IV 09/20/24 10:00 09/21/24 10:13 40 MG Albuterol 2.5 mg Q6HPRN PRN NEB 09/19/24 22:00 Ondansetron HCl 4 mg Q4HP PRN IV 09/19/24 22:00 Hold Morphine Sulfate 2 mg Q4HPRN PRN IV 09/19/24 22:00 09/20/24 16:29 2 MG Piperacillin Sod/ Tazobactam Sod 100 ml @ 25 mls/hr Q8HR IV 09/20/24 22:00 09/21/24 05:27 25 MLS/HR Sodium Chloride 1,000 ml @ 75 mls/hr [id number] IV 09/20/24 16:45 09/20/24 16:45 75 MLS/HR laboratory and microbiology Laboratory Tests 09/20/24 06:06 Test 09/20/24 06:06 Range/Units Serum Glucose 77 74-106 mg/dL Problem List/Assessment/Plan Problem List/Assessment/Plan 09/21/24 PATIENT HAS HISTORY OF COLON CANCER NOW PRESENTING WITH ABDOMINAL PAIN, NAUSEA AND VOMITING MOST LIKELY DUE TO BOWEL OBSTRUCTION, ABDOMEN IS DISTENDED AND VERY TENDER, WHEN I EXPLAINED TO HER THAT 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 Plan discussed with: Patient TAMICA ASTUDILLO MD Sep 21, 2024 12:58
--- NOTE | 2024-09-21 13:13 | DVHPN2 ---
Progress Note Date Seen: Sep 21, 2024 Has the PT tested + for MRSA If YES, has PT been informed?: No Medical Necessity Reason Pt with a Central, PICC or Fol: No The following are medically ne: Melo Catheter Reason for melo catheter: Strict I&O Objective vital signs Vital Sign Date Time Temp Pulse Resp B/P (MAP) Pulse Ox O2 Delivery O2 Flow Rate FiO2 09/21/24 12:47 96.0 75 18 151/58 (89) 98 96.0 09/21/24 09:44 Room Air 09/21/24 09:44 0 21 Total Intake and Output 09/20/24 09/20/24 09/21/24 15:00 23:00 07:00 Intake Total 100 ml Output Total 1 ml 100 ml Balance -1 ml 0 ml medications Current Medications Medications Dose Ordered Sig/Yvonne Route Start Time Stop Time Status Last Admin Dose Admin Hydralazine HCl 10 mg Q6HR IV 09/20/24 00:00 09/21/24 05:28 10 MG Pantoprazole Sodium 40 mg DAILY IV 09/20/24 10:00 09/21/24 10:13 40 MG Albuterol 2.5 mg Q6HPRN PRN NEB 09/19/24 22:00 Ondansetron HCl 4 mg Q4HP PRN IV 09/19/24 22:00 Hold Morphine Sulfate 2 mg Q4HPRN PRN IV 09/19/24 22:00 09/20/24 16:29 2 MG Piperacillin Sod/ Tazobactam Sod 100 ml @ 25 mls/hr Q8HR IV 09/20/24 22:00 09/21/24 05:27 25 MLS/HR Sodium Chloride 1,000 ml @ 75 mls/hr [id number] IV 09/20/24 16:45 09/20/24 16:45 75 MLS/HR laboratory and microbiology Laboratory Tests 09/20/24 06:06 Test 09/20/24 06:06 Range/Units Serum Glucose 77 74-106 mg/dL Problem List/Assessment/Plan Problem List/Assessment/Plan 09/21/24 PATIENT HAS HISTORY OF COLON CANCER NOW PRESENTING WITH ABDOMINAL PAIN, NAUSEA AND VOMITING MOST LIKELY DUE TO BOWEL OBSTRUCTION, ABDOMEN IS DISTENDED AND VERY TENDER, WHEN I EXPLAINED TO HER THAT 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 09/21/24 i CALLED THE PATIENT'S SON AND HAD A LENGTHY CONVERSATION AT THE END OF WHICH HE STATED THAT HE WILL COME TO THE HOSPITAL(LIVES IN [place])AND AFTER TALKING TO HIS MOTHER AND HIS SITYER HE WILL LET ME KNOW ABOUT THEIR DECISION Plan discussed with: Patient TAMICA ASTUDILLO MD Sep 21, 2024 13:13
== END 2024-09-21 18:30 | disposition hospice, home (50) | DRG 388 ==
LOC: EDBD 17:06 → EDUNIT# 17:06 → ER 17:10 → OVERFLOW 22:00 → WEST WING 22:10
PROVIDERS: ADMIT Internal Medicine; ATTEND Internal Medicine
DX: K56.699 Other intestinal obstruction unspecified as to partial versus complete obstruction (principal); J69.0 Pneumonitis due to inhalation of food and vomit; I50.22 Chronic systolic (congestive) heart failure; R64 Cachexia; Z68.1 Body mass index [BMI] 19.9 or less, adult; I11.0 Hypertensive heart disease with heart failure; F03.90 Unspecified dementia, unspecified severity, without behavioral disturbance, psychotic disturbance, mood disturbance, and anxiety; J44.9 Chronic obstructive pulmonary disease, unspecified; E78.5 Hyperlipidemia, unspecified; Z53.20 Procedure and treatment not carried out because of patient's decision for unspecified reasons; I99.8 Other disorder of circulatory system; Z90.710 Acquired absence of both cervix and uterus; Z90.49 Acquired absence of other specified parts of digestive tract; Z82.49 Family history of ischemic heart disease and other diseases of the circulatory system; Z80.0 Family history of malignant neoplasm of digestive organs; Z80.3 Family history of malignant neoplasm of breast; Z51.5 Encounter for palliative care; Z85.038 Personal history of other malignant neoplasm of large intestine
CPT/HCPCS: 36415; 71045; 74176; 74250; 80048; 80053; 81001; 83605; 85025; 85610; 85730; 86850; 86900; 86901; 87081; 93005; G0378; J2405; J2470; J2543